=== PATIENT | female | born 1975 | race Caucasian/White ===

== ENCOUNTER → 2017-06-25 13:54 | Outpatient (CLI) | payer MEDICAID, SELFPAY ==
--- NOTE | 2017-06-25 13:59 | MR_ITS ---
MR head/brain wo con Ordering Physician: Fernanda Barillas Patient Age: 41 years: Female HISTORY: ITS.REASON: NEW GUAN PERSISTENT HEADACHE Pain swelling left side of head base neck. Migraine headaches. He blacks spot. Symptoms one month. No trauma. TECHNIQUE: Noncontrast Multiplanar FLAIR, T1, T2 weighted images along with axial diffusion/ADC imaging performed on 1.5 T. Siemens, MRI. . COMPARISON :CT head 08/09/2014 FINDINGS The diffusion images show no acute infarct or ischemia No mass lesion. Normal anatomy. The ventricles, basal cisterns appear satisfactory. Persaud-white matter patterns satisfactory.. FLAIR images show only a small 2 mm high signal focus at the periphery of left basal ganglia which I believe may merely be related to a flow and vessel as it is only seen on axial images but not confirmed on coronal views. . Most likely related to a generous perivascular space and slow flow within tiny venous structure. Not felt to be of significance.. The white matter regions otherwise appear unremarkable. Posterior fossa appears satisfactory. Cranial nerve VII and VIII overall survey grossly unremarkable.... Scant barely evident signal at the left mastoid tip may reflect a small opacified air cell and tiny mastoid effusion. Not of significance.. Negligible. . Normal flow void at dural venous sinuses on this noncontrast study . Scalp and skull intact. Orbits unremarkable. Paranasal sinuses clear. On the sagittal view of the head and cranial cervical junction I would note that there is a mild/ moderate disc protrusion midline and perhaps slightly to the left at C 3/4. This does indent the thecal sac and nearly abuts the cervical cord. The underlying osseous spinal canal is modest in caliber satisfactory at this level and with this disc protrusion it measures measuring just less than 10 mm AP sagittal measurement. Reflecting borderline spinal stenosis.. You may want to consider further evaluation with MRI C-spine particularly if associated neck symptoms with headaches. IMPRESSION: MRI brain within normal limits . No significant appearing findings Minor incidental comments in text..: ... Most notable is a C3/4 Central Disc Protrusion-with borderline spinal stenosis due to this along with the modest volume underlying cervical osseous spinal canal.. .
== END ==
PROVIDERS: Family Provider Family Medicine; PCP Family Medicine; Visit Provider Nurse Practitioner Family
DX: G44.52 New daily persistent headache (NDPH) (principal)
CPT/HCPCS: 70551

== ENCOUNTER → 2017-08-21 09:27 | Outpatient (CLI) | payer MEDICAID, SELFPAY ==
--- NOTE | 2017-08-21 09:31 | US_ITS ---
US abdomen limited History:Right upper quadrant pain with elevated liver enzymes Ordering Physician:Fernanda Barillas Patient Age: 41 years Comparison:None Findings: Pancreas:Unremarkable. No obvious mass or abnormal fluid collection. No ductal dilatation Liver:No focal liver lesions demonstrated. Homogeneous echogenicity. No intrahepatic biliary ductal dilatation evident Right Kidney:Unremarkable. Normal size and echogenicity. No hydronephrosis Gallbladder: Prior cholecystectomy. Common bile duct is within normal limits. IMPRESSION: Prior cholecystectomy otherwise negative right upper quadrant ultrasound
== END ==
PROVIDERS: Family Provider Family Medicine; PCP Family Medicine; Visit Provider Nurse Practitioner Family
DX: R74.8 Abnormal levels of other serum enzymes (principal); R10.11 Right upper quadrant pain
CPT/HCPCS: 76705

== ENCOUNTER → 2018-04-07 14:28 | Outpatient (CLI) | payer MEDICAID, SELFPAY ==
--- NOTE | 2018-04-07 14:40 | XR_ITS ---
XR foot LT min 3V HISTORY: ITS.REASON: LEFT FOOT PAIN ORDERING PHYSICIAN: Jennifer Churchill PATIENT AGE: 42 years COMPARISON: None FINDINGS: No fracture or dislocation. No lytic or blastic change. There is normal mineralization.. The joint spaces are well-preserved. No significant degenerative/arthritic changes. No erosive changes evident. No calcaneal spur.. No radiopaque foreign body IMPRESSION: Negative, no acute finding
== END ==
PROVIDERS: PCP Nurse Practitioner Family; Visit Provider Nurse Practitioner Family
DX: M79.672 Pain in left foot (principal)
CPT/HCPCS: 73630

== ENCOUNTER 2019-10-25 19:37 | Emergency (ER) | payer OTHER, SELFPAY ==
[2019-10-25 19:52] VITALS: BP 136/92; PULSE 94; RESP 19; TEMP 36.8; O2SAT 99; BMI 24.8
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
[2019-10-25 20:17] VITALS: BP 130/88; PULSE 102; RESP 16; TEMP 36.8; O2SAT 99; BMI 25.6
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
[2019-10-25 21:47] VITALS: BP 123/75; PULSE 80; RESP 16; TEMP 36.9
== END 2019-10-25 22:00 | disposition home or self-care (01) ==
LOC: UTC 20:10 → ER 20:15
PROVIDERS: Emergency Provider Family Medicine; PCP Family Medicine
DX: M54.2 Cervicalgia (principal); Y04.2XXA Assault by strike against or bumped into by another person, initial encounter; Y92.019 Unspecified place in single-family (private) house as the place of occurrence of the external cause
CPT/HCPCS: 70490; 72125; 96372; 99282

== ENCOUNTER 2020-09-20 14:13 | Observation (INO) | payer OTHER, SELFPAY ==
[2020-09-20 14:14] VITALS: BP 134/72; PULSE 137; RESP 18; TEMP 38; O2SAT 100; BMI 27.4
--- NOTE | 2020-09-20 14:39 | XR_ITS ---
PROCEDURE: XR CHEST PORTABLE CLINICAL HISTORY: fever, cough, soa COMPARISON: CR XR CHEST 2V from 11/09/2018 CR XR CHEST 2V from 03/21/2019 CR XR CHEST 2V from 06/02/2019 FINDINGS: The cardiomediastinal silhouette and pulmonary vascularity are within normal limits. The lungs are clear without infiltrates, suspicious nodules, or pleural effusions. No acute bony abnormalities. IMPRESSION: No acute findings. Dictated by: Wallace Dejesus MD 09/20/2020 16:02 Wallace Dejesus MD in [place] 09/20/2020 16:02
--- NOTE | 2020-09-20 14:40 | CT_ITS ---
PROCEDURE: CT ABDOMEN PELVIS W CON CLINICAL INDICATION: abdominal pain COMPARISON: CT ABDPELW/O CT ABD PELVIS W/O CONTRAST from 08/18/2016 TECHNIQUE: IV Contrast: 75ML Isovue 370 Oral Contrast None Axial images obtained with sagittal and coronal reformats. All CT scans at the facility use one or more dose reduction, viz: automated exposure control, ma/kV adjustment per patient size (including targeted exams where dose is matched to indication, i.e. head), or iterative reconstruction technique. FINDINGS: LOWER THORAX: No acute finding ABDOMEN & PELVIS: Status post cholecystectomy. The liver, spleen, adrenal glands, pancreas, and kidneys have an unremarkable appearance. No evidence of appendicitis. No renal or ureteral calculi. No hydronephrosis or obvious renal mass. There is a mild amount of retained colonic feces. No evidence of diverticulitis There his been a prior hysterectomy. Multiple small left ovarian cysts are noted 1 of which demonstrates some minimal peripheral contrast enhancement measuring approximately 1 cm. The largest cyst is 2 x 1.4 cm. There is a mild amount of gas within the vaginal region. There is stranding of the fat anterior to the urinary bladder between the urinary bladder and the abdominal wall with suggestion of a small amount of fluid in this region. There is mild haziness around the urinary bladder. These findings are nonspecific but could be seen with cystitis. Degenerative disc disease L4-5. IMPRESSION: Stranding of the fat anterior to the urinary bladder between the bladder and the abdominal wall with mild haziness of the fat around the urinary bladder. Underlying inflammatory changes are considered. Cystitis is a consideration. Moderate amount of retained colonic feces Dictated by: Wallace Dejesus MD 09/20/2020 16:19 Wallace Dejesus MD in [place] 09/20/2020 16:19
--- NOTE | 2020-09-20 14:40 | CA_ITS ---
APPROVED REPORT Right Lower Extremity Venous Study for DVT. Inspector Firearms: Jennifer Gray RVT Indications Lower Extremity Pain: Right Lower Extremity Edema: Right Current Smoker RT GROIN PAIN SINCE YESTERDAY, NKI Risk Factors Current Smoker Vein Imaging CFV (R): compressive, spontaneous, phasic, augmentation FEM (R): compressive, spontaneous, phasic, augmentation POP (R): compressive, spontaneous, phasic, augmentation PTV (R): Compressible GSV (R): Compressible Peroneals (R):Compressible GAS (R): Compressible Findings Study suggests no evidence of DVT or SVT of the right lower extremity. Conclusion Study suggests no evidence of DVT or SVT of the right lower extremity. Critical Notification Physician Notified Date: 09/20/2020 Time: 15:16 Physician Name: Dr Snowden Electronically signed by : Wallace Dejesus MD 09/20/2020 16:54:38
--- NOTE | 2020-09-20 14:42 | HMH.EDGENADL ---
ED Disposition Clinical Impression: Pelvic infection, IV drug abuse Sepsis Qualifiers: Sepsis type: sepsis due to unspecified organism Sepsis acute organ dysfunction status: without acute organ dysfunction Qualified Code(s): A41.9 - Sepsis, unspecified organism Disposition: Admitted As Inpatient Condition on Discharge: Serious Referrals: Provider,Referral, [Referring] - - Critical Care Critical Care Time: No Attestation: On 09/20/20, the high probability of a clinically significant, sudden or life threatening deterioration of the following system(s) required my full and direct attention, intervention and personal management. The time I documented below is in addition to time spent performing reported procedures but includes the following listed in this critical care notation. Medical Decision Making - Danny Inquiry Pt receiving controlled substance: No Vital Signs: 09/20/20 14:14 09/20/20 15:00 09/20/20 18:16 Temperature 100.4 F H Temperature Source Oral Pulse Rate 125 H 78 Pulse Rate [Right Radial] 137 H Respiratory Rate 18 18 Blood Pressure 128/71 110/70 Blood Pressure [Right Arm] 134/72 Blood Pressure Mean 89 Blood Pressure Mean [Right Arm] 92 Blood Pressure Source [Right Arm] Automatic Cuff Blood Pressure Position [Right Arm] Sitting 02 Sat by Pulse Oximetry 100 98 98 Oxygen Delivery Method Room Air Room Air - Lab Data Lab Results 09/20/20 14:38: ESR 99 H 09/20/20 14:38: Sodium 135 L, Potassium 3.2 L, Chloride 101, Carbon Dioxide 22, Anion Gap 15.2 H, BUN 10, Creatinine 0.70, Estimated Creat Clear 112, Estimated GFR 92, Est GFR ( Amer) 111, Glucose 157 H, Calcium 9.1, Total Bilirubin 0.6, AST 23, ALT 21, Alkaline Phosphatase 144 H, Total Creatine Kinase 20 L, CK-MB (CK-2) 0.4, CK-MB (CK-2) Rel Index 2.0, Troponin I < 0.01, C-Reactive Protein 211.4 H, Total Protein 8.4 H, Albumin 4.2, Globulin 4.2 H, Albumin/Globulin Ratio 1.0 L 09/20/20 14:38: Lactate 1.5 09/20/20 14:38: WBC 17.5 H, RBC 4.54, Hgb 13.1, Hct 38.4, MCV 84.6, MCH 28.9, MCHC 34.2, RDW 14.1, Plt Count 350, MPV 7.8, Neut % (Auto) 80.4 H, Lymph % (Auto) 15.4, [place] % (Auto) 3.6, Eos % (Auto) 0.2, Baso % (Auto) 0.3, Neut # (Auto) 14.0 H, Lymph # (Auto) 2.7, [place] # (Auto) 0.6, Eos # (Auto) 0.0, Baso # (Auto) 0.1, Total Counted 100, Neutrophils % (Manual) 70, Band Neutrophils % 2.0, Lymphocytes % (Manual) 25, Monocytes % (Manual) 2, Promyelocytes % 1, Platelet Estimate Normal, RBC Morphology Normal 09/20/20 14:48: SARS-CoV-2 (PCR) Not detected, Influenza A Untype (PCR) Not detected, Influenza Type B (PCR) Not detected 09/20/20 15:40: Urine Color Yellow, Urine Appearance Clear, Urine pH 6.5, Ur Specific [place] <= 1.005, Urine Protein Negative, Urine Glucose (UA) Negative, Urine Ketones Trace, Urine Blood Trace-i, Urine Nitrate Negative, Urine Bilirubin 1+ A, Urine Urobilinogen 0.2, Ur Leukocyte Esterase Negative, Urine RBC 3-5, Urine WBC Occasional, Ur Squamous Epith Cells 5-10, Urine Bacteria Trace 09/20/20 15:40: Urine Opiates Screen Negative, Urine Methadone Screen Negative, Ur Barbituates Screen Negative, Ur Phencyclidine Scrn Negative, Ur Amphetamines Screen Positive H, U Benzodiazepines Scrn Negative, Urine Cocaine Screen Negative, U Marijuana (THC) Screen Negative Result diagrams: 09/20/20 14:38 09/20/20 14:38 Orders (Tests/Meds): ED MEDICATIONS Generic Name Dose Route Start Last Admin Trade Name Freq PRN Reason Stop Dose Admin Levofloxacin/Dextrose 750 mg in 150 mls @ 100 mls/hr 09/20/20 17:30 Levofloxacin 750mg/150ml Premix IV 10/04/20 17:29 Q24H [place] Protocol Metronidazole 500 mg in 100 mls @ 100 mls/hr 09/20/20 17:45 09/20/20 17:35 Flagyl 500mg/100ml Ivpb IV 10/04/20 17:44 100 mls/hr Q8H [place] Administration Protocol Discontinued Medications Generic Name Dose Route Start Last Admin Trade Name Freq PRN Reason Stop Dose Admin Iopamidol 70 ml 09/20/20 15:30 09/20/20
--- NOTE | 2020-09-20 14:43 | CT_ITS ---
PROCEDURE: CT ANGIO CHEST PE PROTOCOL CLINCIAL INDICATION: soa COMPARISON: No exams were available for comparison TECHNIQUE: IV Contrast: 70ML Isovue 370 Axial images obtained with sagittal and coronal reformats. All CT scans at the facility use one or more dose reduction, viz: automated exposure control, ma/kV adjustment per patient size (including targeted exams where dose is matched to indication, i.e. head), or iterative reconstruction technique. FINDINGS: HEART AND MEDIASTINAL STRUCTURES: No evidence of pulmonary embolus aortic aneurysm or aortic dissection. No mediastinal or hilar mass or adenopathy. There is a small hypodensity in the isthmus of the thyroid gland centrally and on the right nonspecific at 1 cm LUNGS AND PLEURAL SPACES: There is evidence of old granulomatous disease with scattered calcified granulomas. No lobar consolidation or collapse. No effusions or infiltrates. BONY STRUCTURES: No acute bony abnormalities apparent. UPPER ABDOMEN: Unremarkable. ADDITIONAL FINDINGS: No other significant abnormalities. IMPRESSION: No acute finding Dictated by: Wallace Dejesus MD 09/20/2020 16:08 Wallace Dejesus MD in [place] 09/20/2020 16:08
--- NOTE | 2020-09-20 14:47 | ECG_ITS ---
APPROVED REPORT Exam: Resting ECG HR:125 bpm ECG Measurements Heart Rate 125 AXES VT 150 P 74 QRSd 76 QRS 66 QT 300 T 25 QTc 433 Conclusion Sinus tachycardia Cannot rule out Anterior infarct, age undetermined Abnormal ECG Electronically signed by : Luis Curtis, 09/20/2020 21:17:09
--- NOTE | 2020-09-20 14:47 | PC.NURSE ---
notified rad of CT orders, spoke with Trudy
--- NOTE | 2020-09-20 14:57 | PC.NURSE ---
CV lab staff at
[2020-09-20 14:59] LABS: Coronavirus 19, PCR Not Detected (NotDetected); Influenza A, PCR Not Detected (NotDetected); Influenza B, PCR Not Detected (NotDetected)
[2020-09-20 15:00] VITALS: BP 128/71; PULSE 125; O2SAT 98
[2020-09-20 15:00] LABS: Chloride 101 mmol/L (98-107)
[2020-09-20 15:01] LABS: Potassium 3.2 mmoL/L (3.5-5.1); Sodium 135 mmol/L (136-145)
[2020-09-20 15:03] LABS: Alanine Aminotransferase 21 U/L (12-78); Alkaline Phosphatase 144 U/L (38-126); Anion Gap 15.2 mEq/L (5-15); Aspartate Amino Transferase 23 U/L (14-36); Bilirubin,Total 0.6 mg/dl (0.2-1.3); Blood Urea Nitrogen 10 mg/dl (7-17); Carbon Dioxide 22 mmol/L (22.0-30.0); Creatine Kinase 20 U/L (30-135); Creatinine Clearance Estimated 112 mL/min (50-200); Estimated Glomerular Filt Rate 92 ml/min (>60); GFR (African American) 111 ML/MIN (>60)
[2020-09-20 15:04] LABS: Albumin Level 4.2 g/dl (3.5-5.0); Calcium 9.1 mg/dl (8.4-10.2); Globulin 4.2 g/dL (1.3-3.2); Glucose 157 mg/dl (74-100); Total Protein,Serum 8.4 g/dl (6.3-8.2)
--- NOTE | 2020-09-20 15:10 | PC.NURSE ---
patient to ct at this time
[2020-09-20 15:13] LABS: Creatine Kinase MB 0.4 ng/ml (0.0-2.03)
[2020-09-20 15:15] LABS: Lactic Acid 1.5 mmol/L (0.7-2.1)
[2020-09-20 15:17] LABS: Erythrocyte Sedimentation Rate 99 mm/hr (0-20)
[2020-09-20 15:36] LABS: Troponin I < 0.01 ng/ml (0.00-0.034)
[2020-09-20 15:50] LABS: Microscopic, Urine URINE MICROSCOPIC (MICROSCOPIC)
--- NOTE | 2020-09-20 15:50 | PC.NURSE ---
Pt to & from bathroom via wheelchair with 1 assist, clean catch urine obtained.
[2020-09-20 15:51] LABS: Basophils # 0.1 K/mm3 (0-0.2); Basophils % 0.3 % (0.1-2.0); Eosinophils % 0.2 % (0.1-12.0); Hematocrit 38.4 % (37.0-47.0); Hemoglobin 13.1 g/dL (12.2-16.2); Lymphocytes # 2.7 K/mm3 (0.7-4.5); Lymphocytes % 15.4 % (10-50); Mean Corpuscular HGB Conc 34.2 g/dL (31.8-35.4); Mean Corpuscular Hemoglobin 28.9 pg (27.0-31.2); Mean Corpuscular Volume 84.6 fl (81-99); Mean Platelet Volume 7.8 fl (7.4-10.4); Monocytes # 0.6 K/mm3 (0.1-1.0); Monocytes % 3.6 % (1.7-9.3); Neutrophils % 80.4 % (37.0-80.0); Platelet Count 350 K/mm3 (142-424); Red Blood Count 4.54 M/mm3 (4.20-5.40); Red Cell Distribution Width 14.1 % (11.5-17.5); White Blood Count 17.5 K/mm3 (4.8-10.8)
[2020-09-20 15:52] LABS: MANUAL DIFFERENTIAL MANUAL DIFFERENTIAL (MANUAL DIFF)
[2020-09-20 15:55] LABS: Appearance,Urine CLEAR (Clear); Blood, Urine TRACE-I (Negative); Color,Urine YELLOW (Yellow); Glucose,Urine (UA) Negative (Negative); Ketones,Urine TRACE (Negative); Leukocyte Esterase,Urine Negative (Negative); Nitrate,Urine Negative (Negative); PH,Urine 6.5 (5.0-8.5); Protein,Urine Negative (Negative); Specific Gravity, Urine <= 1.005 (1.005-1.030); Urobilinogen,Urine 0.2 EU/dl (0.2)
[2020-09-20 15:56] LABS: Bilirubin,Urine 1+ (Negative)
[2020-09-20 15:59] LABS: C-Reactive Protein 211.4 mg/L (0-4)
[2020-09-20 16:02] LABS: WBC,Urine Occasional #/hpf (0-3)
[2020-09-20 16:03] LABS: Bacteria,Urine Trace /lpf
[2020-09-20 16:05] LABS: Amphetamine/Metha Screen,Urine Positive ng/ml (<1000)
[2020-09-20 16:06] LABS: Barbiturates Screen,Urine Negative ng/ml (<200); Benzodiazepines Screen,Urine Negative ng/ml (<200)
[2020-09-20 16:07] LABS: Cannabinoid Screen,Urine Negative ng/ml (<50)
[2020-09-20 16:08] LABS: Cocaine Screen,Urine Negative ng/ml (<300); Methadone Screen,Urine Negative ng/ml (<300)
[2020-09-20 16:09] LABS: Opiate Screen,Urine Negative ng/ml (<300)
[2020-09-20 16:10] LABS: Phencyclidine Screen,Urine Negative ng/ml (<25)
[2020-09-20 16:53] LABS: Lymphocytes % 25 % (10-50); Monocytes % 2 % (2-9); Neutrophils % 70 % (42-76); Promyelocytes % 1 %; Total Cells Counted 100
[2020-09-20 16:54] LABS: Platelet Estimate Normal; RBC Morphology Normal
--- NOTE | 2020-09-20 17:08 | PC.NURSE ---
SUZANNE PEREZ speaking with Dr. Fajardo
--- NOTE | 2020-09-20 17:09 | PC.NURSE ---
Assisted MD with pelvic exam. wound culture collected. Pt tolerated well
--- NOTE | 2020-09-20 17:19 | PC.NURSE ---
cloth desizing range operator chief paging dr. green
--- NOTE | 2020-09-20 17:47 | PC.NURSE ---
2nd page out for dr green
[2020-09-20 18:16] VITALS: BP 110/70; PULSE 78; RESP 18; O2SAT 98
[2020-09-20 18:25] VITALS: BMI 25.7
[2020-09-20 19:00] VITALS: BP 122/71; PULSE 109; RESP 18; TEMP 37.3; O2SAT 97
--- NOTE | 2020-09-20 19:04 | PC.NURSE ---
Report called to floor nurse, Brenda at this time. Brenda aware of Levaquin infusing.
[2020-09-20 19:05] VITALS: BP 115/69; PULSE 105; RESP 18; O2SAT 98
--- NOTE | 2020-09-20 19:36 | PC.NURSE ---
PT ARRIVED TO FLOOR VIA STRETCHER FROM ED W/STAFF AT 192
[2020-09-20 21:04] VITALS: BP 114/69; PULSE 105; RESP 20; TEMP 37.4; O2SAT 100
--- NOTE | 2020-09-20 22:53 | P.CONPHA_ITS ---
[facility] Pharmacy VTE Monitoring - Patient Demographics Admission date: 09/20/20 Report Date: 09/20/20 Time: 22:53 Allergies/Adverse Reactions: Patient Allergies No Known Allergies Allergy (Verified 02/01/19 03:27) Height: 1.57 m Weight: 63.959 kg Patient Problems: Current Active Problems Pelvic infection (Acute) IV drug abuse (Acute) Sepsis (Acute) - VTE Risk Labs: VTE Related Lab Results Hgb 13.1 g/dL (12.2-16.2) 09/20/20 14:38 Hct 38.4 % (37.0-47.0) 09/20/20 14:38 Plt Count 350 K/mm3 (142-424) 09/20/20 14:38 BUN 10 mg/dl (7-17) 09/20/20 14:38 Creatinine 0.70 mg/dl (0.52-1.04) 09/20/20 14:38 Estimated Creat Clear 112 mL/min (50-200) 09/20/20 14:38 Clinical Trial Participant: No - Prophylaxis Types of VTE Prophylaxis: TEDS Knee High
--- NOTE | 2020-09-21 02:51 | PC.NURSE ---
A&OX4. PT TOLERATING RA WELL. UP INDEPENDENTLY IN ROOM. PT HAS C/O CONTINUOUS PAIN IN PELVIC AREA T/O SHIFT. TX PER MAY. ON REASSESSMENT PT RESTING IN BED. VSS WILL CONTINUE TO MONITOR.
[2020-09-21 07:43] LABS: Basophils % 0.3 % (0.1-2.0); Eosinophils # 0.1 K/mm3 (0.0-0.4); Eosinophils % 0.8 % (0.1-12.0); Hematocrit 33.9 % (37.0-47.0); Lymphocytes % 25.6 % (10-50); Mean Corpuscular HGB Conc 34.6 g/dL (31.8-35.4); Mean Corpuscular Hemoglobin 29.7 pg (27.0-31.2); Mean Corpuscular Volume 85.8 fl (81-99); Mean Platelet Volume 7.9 fl (7.4-10.4); Monocytes # 0.8 K/mm3 (0.1-1.0); Monocytes % 6.7 % (1.7-9.3); Neutrophils # 7.7 K/mm3 (1.8-7.8); Neutrophils % 66.5 % (37.0-80.0); Platelet Count 311 K/mm3 (142-424); Red Blood Count 3.94 M/mm3 (4.20-5.40); Red Cell Distribution Width 13.9 % (11.5-17.5); White Blood Count 11.5 K/mm3 (4.8-10.8)
[2020-09-21 07:59] VITALS: BP 116/69; PULSE 101; RESP 18; TEMP 37.1; O2SAT 100
[2020-09-21 08:00] VITALS: PULSE 101; RESP 18; O2SAT 100
[2020-09-21 08:07] LABS: Hemoglobin 11.7 g/dL (12.2-16.2)
--- NOTE | 2020-09-21 08:48 | US_ITS ---
PROCEDURE: US TRANSVAGINAL CLINICAL INDICATION: Pelvic pain Painful urination COMPARISON: CT CT ABDOMEN PELVIS W CON from 09/20/2020 FINDINGS: Status post hysterectomy and right oophorectomy. The left ovary is prominent at 4.6 x 2.3 by 3.6 cm. There are small left ovarian cysts. The largest measures approximately 2 cm. There is blood flow noted within the left ovary. No cul-de-sac fluid or mass apparent. IMPRESSION: Prior hysterectomy and right oophorectomy. Mildly prominent left ovary with small left ovarian cysts the largest measuring 2 cm and appears to represent a simple cyst.. Dictated by: Wallace Dejesus MD 09/21/2020 10:02 Wallace Dejesus MD in [place] 09/21/2020 10:02
--- NOTE | 2020-09-21 08:50 | CT_ITS ---
PROCEDURE: CT THORACIC SPINE W CON CLINICAL HISTORY: Pain, IV Drug user, R/O Discitis COMPARISON: No exams were available for comparison TECHNIQUE: Axial images obtained with sagittal and coronal reformats. All CT scans at the facility use one or more dose reduction, viz: automated exposure control, ma/kV adjustment per patient size (including targeted exams where dose is matched to indication, i.e. head), or iterative reconstruction technique. FINDINGS: There is normal alignment. No acute fracture or dislocation. No lytic or blastic change. No evidence of discitis. No paraspinal mass or abscess. There are mild degenerative changes with small anterior osteophytes. No canal stenosis or foraminal narrowing apparent. Minimal atelectatic or fibrotic change left lower lobe. IMPRESSION: Minimal degenerative changes, no acute finding Dictated by: Wallace Dejesus MD 09/21/2020 10:34 Wallace Dejesus MD in [place] 09/21/2020 10:34
--- NOTE | 2020-09-21 08:50 | CT_ITS ---
PROCEDURE: CT LUMBAR SPINE W CON CLINICAL HISTORY: Pain, IV Drug user, R/O Discitis COMPARISON: CT ABDPELW/O CT ABD PELVIS W/O CONTRAST from 08/18/2016 MR [facility] [place] MRI-L-SPINE W/WO from 02/04/2017 TECHNIQUE: Axial images obtained with sagittal and coronal reformats. All CT scans at the facility use one or more dose reduction, viz: automated exposure control, ma/kV adjustment per patient size (including targeted exams where dose is matched to indication, i.e. head), or iterative reconstruction technique. FINDINGS: Normal alignment. No acute fracture or dislocation. No lytic or blastic change. L1-L2, L2-L3, and L3-L4 have an unremarkable appearance. There is degenerative disc disease at L4-5 with decrease in the disc space and some mild endplate osteosclerosis and small anterior osteophytes. No definite endplate erosion. No abnormal enhancing paraspinal soft tissues or paraspinal abscess. There are endplate hypertrophic changes with moderate to severe left-sided foraminal narrowing. L5-S1: There is mild degenerative disc disease with endplate osteophytes and bulging disc which is slightly eccentric toward the right. Left-sided foraminal and lateral disc osteophyte complex noted which is broad-based. There is moderate left-sided foraminal narrowing and mild right foraminal narrowing. IMPRESSION: 1. No convincing evidence of discitis or paraspinal abscess. 2. Degenerative disc disease L4-5 and L5-S1 with endplate hypertrophic change and bulging discs with bilateral foraminal narrowing. Please see above for detail. Dictated by: Wallace Dejesus MD 09/21/2020 10:21 Wallace Dejesus MD in [place] 09/21/2020 10:21
--- NOTE | 2020-09-21 08:50 | CT_ITS ---
PROCEDURE: CT HIP RT W CON CLINICAL HISTORY: Pain, IV Drug user, R/O septic joint COMPARISON: CT CT ABDOMEN PELVIS W CON from 09/20/2020 TECHNIQUE: Axial images obtained with sagittal and coronal reformats. All CT scans at the facility use one or more dose reduction, viz: automated exposure control, ma/kV adjustment per patient size (including targeted exams where dose is matched to indication, i.e. head), or iterative reconstruction technique. FINDINGS: No bony destructive process. No significant hip joint effusion or abscess apparent. Mild osteoarthritic changes are present of the right hip. There remains thickening of the fat anterior to the urinary bladder with mild haziness of the soft tissues at this region. IMPRESSION: 1. Minimal osteoarthritic change of the right hip. No bony destructive process or abscess. 2. Haziness of the fat anterior to the urinary bladder suspicious for underlying inflammatory process. Dictated by: Wallace Dejesus MD 09/21/2020 10:12 Wallace Dejesus MD in [place] 09/21/2020 10:12
--- NOTE | 2020-09-21 08:56 | CA_ITS ---
APPROVED REPORT EXAM: Comprehensive 2D, Doppler, and color-flow Echocardiogram Boarding House Manager: Fanny Arzola RDCS Ht: 5 ft 2 in Wt: 141lbs BSA: 1.65 BP: 110/70 mmHg Indications: IV drug abuse, pelvic infection, smoker, cellulitis 2D Dimensions LVOT 1.92 cm (M/F) 1.5-2.5 LVEF (Abbott's) 56.10 % F: 54 - 74 LV Volume 81.40 mL F: 46 - 106 LV Volume Index 49.031472 mL/m2 F: 29 - 61 LA Volume 23.00 mL LA Volume Index 14.310634 mL/m2 (M/F) 16-34 M-Mode Dimensions RVDd 1.47 cm (0.9-2.6) LA Diam 2.86 cm (1.9-4.0) LVDd 4.47 cm (3.5-5.7) Ao Diam 2.33 cm (2.0-3.7) LVDs 3.50 cm (3.5-5.7) IVSd 0.84 cm (0.6-1.1) PWd 0.97 cm (0.6-1.1) EF (Teich) 44.10% FS 21.70% EDV (Teich) 91.00 mL ESV (Teich) 50.90 mL LV Diastology E Decel Time 197.00 (160-240 msec) E/A Ratio 0.9 MED E' 12.30 (< 7 cm/sec) E'/MED E' Ratio 8.86 (>14) LAT E' 11.70 (<10 cm/sec) E/LAT E' Ratio 9.32 (>14) Mitral Valve MV E Max Chucho. 109.00 (40-130 cm/s) MV A Velocity 116.00 (40-130 cm/s) E/A Ratio 0.94 MV Decel. Time 197.00 (160-240 ms) MV PHT 58.00 ms Tricuspid Valve TR P. Velocity 214.00 cm/s RAP Estimate 10.00 mmHg RVSP 28.30 mmHg Left Ventricle Left atrium is normal size, left ventricle is normal size, there is no concentric left ventricular hypertrophy, visually estimated ejection fraction 55% with no regional wall motion abnormality, diastolic parameters are within normal range. Right Ventricle Right atrium and right ventricle are normal size and contractility. Aortic Valve Aortic valve is grossly normal, there is no aortic stenosis or aortic insufficiency. Mitral Valve Mitral valve grossly normal, there is trace mitral regurgitation. Tricuspid Valve Tricuspid valve grossly normal, there is trace tricuspid regurgitation, tricuspid regurgitation jet velocity is inadequate for calculation of the right ventricular systolic pressure. Pulmonic Valve Pulmonic valve is poorly visualized. Great Vessels Aortic root is normal size. Pericardium No significant pericardial effusion noted. Conclusion 1. Normal left ventricular size, preserved left ventricular systolic function, visually estimated ejection fraction 55% with no regional wall motion abnormality, diastolic parameters are within normal range. 2. Trace mitral and tricuspid regurgitation. 3. No significant pericardial effusion noted. Electronically signed by : Inocencio Marina, 09/22/2020 16:27:17
--- NOTE | 2020-09-21 09:23 | HMH.HP ---
*Admission Date: 09/20/20 *Chief complaint: Pelvic pain *History of present illness: 44-year-old female patient presented to the emergency department with complaints of pain in her right inguinal, pelvic, right medial thigh area, and radiating down her right leg. Pain increases with weightbearing, she does report lower lumbar back pain at times and denies any injury She also reports a chronic cough, increasing slightly over the past week with mild shortness of breath. She denies nausea/vomiting/diarrhea or dysuria/urgency/frequency She did have an irregular pelvic exam and [employer] referral placed Lab work in ED revealed elevated white count 17.5 Electrolytes nonactionable CRP elevated at 211 09/20/20 Abdomen, Pelvis CT: FINDINGS: LOWER THORAX: No acute finding ABDOMEN & PELVIS: Status post cholecystectomy. The liver, spleen, adrenal glands, pancreas, and kidneys have an unremarkable appearance. No evidence of appendicitis. No renal or ureteral calculi. No hydronephrosis or obvious renal mass. There is a mild amount of retained colonic feces. No evidence of diverticulitis There his been a prior hysterectomy. Multiple small left ovarian cysts are noted 1 of which demonstrates some minimal peripheral contrast enhancement measuring approximately 1 cm. The largest cyst is 2 x 1.4 cm. There is a mild amount of gas within the vaginal region. There is stranding of the fat anterior to the urinary bladder between the urinary bladder and the abdominal wall with suggestion of a small amount of fluid in this region. There is mild haziness around the urinary bladder. These findings are nonspecific but could be seen with cystitis. Degenerative disc disease L4-5. IMPRESSION: Stranding of the fat anterior to the urinary bladder between the bladder and the abdominal wall with mild haziness of the fat around the urinary bladder. Underlying inflammatory changes are considered. Cystitis is a consideration. Moderate amount of retained colonic feces Dictated by: Wallace Dejesus MD 09/20/2020 16:19 Wallace Dejesus MD in [place] 09/20/2020 16:19 09/20/20 US Lower Extremity As per [facility] procedure, doppler report received from point of care technician: Negative for DVT [facility] History I have reviewed the patient's past medical history: Yes Medical History: Reports:: Anxiety, Cancer, Depression, Urinary Tract Infection Denies:: Diabetes Mellitus Type 1, Diabetes Mellitus Type 2 *Have you ever received a pneumonia vaccine?: No *Have you received a flu vaccine this season?: No Other Surgeries: Yes: , Hysterectomy-Partial, Tubal Ligation, Other Amputation: No Fractures: No - *Social History Smoking Status: Current every day smoker Tobacco Type: cigarettes # Packs/Day (cigarettes): 1 Alcohol Intake: never Substance Use Type: other Last Used Substance: days (ago) *Occupational Status:: unemployed Housing: house *Travel in the last 8 weeks: None - Psychiatric History Pschychiatric History:: Reports:: Anxiety, Depression Family Hx:: No significant family history Review of Systems - Review of Systems Review of systems:: pertinent systems reviewed and negative unless documented below - Constitutional Denies anorexia - Eyes Denies change in vision, Denies floaters - ENT Denies abnormal hearing, Denies dizziness - *Cardiovascular Reports leg pain with activity, Reports shortness of breath, Reports leg swelling, Denies chest pain - *Respiratory Reports shortness of breath, Denies chest congestion, Denies wheezing - *Gastrointestinal Denies change in stools, Denies vomiting - *Genitourinary Reports pelvic pain, Denies painful urination, Denies difficulty starting urination - *Musculoskeletal Reports abnormal walking, Reports limited joint movement, Reports radiating pain into limb, Denies body aches - Integumentary/Breasts Denies hair loss, Denies change in skin color - *Neurologic Denies numbness,
--- NOTE | 2020-09-21 09:31 | HMH.PHACONS ---
- Pharmacy Consult Date: 09/21/20 Time: 09:31 Referring provider: DR. GARCIA Reason for Consult:: VANCOMYCIN DOSING Allergies and ADEs:: Allergies Allergy/AdvReac Type Severity Reaction Status Date / Time No Known Allergies Allergy Verified 02/01/19 03:27 Home Medications:: Home Medications Medication Instructions Recorded Confirmed Type No Known Home Medications 09/20/20 09/20/20 History Height: 1.57 m Weight: 63.959 kg Laboratory Results:: Laboratory Results - last 24 hr 09/20/20 14:38: ESR 99 H 09/20/20 14:38: Sodium 135 L, Potassium 3.2 L, Chloride 101, Carbon Dioxide 22, Anion Gap 15.2 H, BUN 10, Creatinine 0.70, Estimated Creat Clear 112, Estimated GFR 92, Est GFR ( Amer) 111, Glucose 157 H, Calcium 9.1, Total Bilirubin 0.6, AST 23, ALT 21, Alkaline Phosphatase 144 H, Total Creatine Kinase 20 L, CK-MB (CK-2) 0.4, CK-MB (CK-2) Rel Index 2.0, Troponin I < 0.01, C-Reactive Protein 211.4 H, Total Protein 8.4 H, Albumin 4.2, Globulin 4.2 H, Albumin/Globulin Ratio 1.0 L 09/20/20 14:38: Lactate 1.5 09/20/20 14:38: WBC 17.5 H, RBC 4.54, Hgb 13.1, Hct 38.4, MCV 84.6, MCH 28.9, MCHC 34.2, RDW 14.1, Plt Count 350, MPV 7.8, Neut % (Auto) 80.4 H, Lymph % (Auto) 15.4, Riley % (Auto) 3.6, Eos % (Auto) 0.2, Baso % (Auto) 0.3, Neut # (Auto) 14.0 H, Lymph # (Auto) 2.7, Riley # (Auto) 0.6, Eos # (Auto) 0.0, Baso # (Auto) 0.1, Total Counted 100, Neutrophils % (Manual) 70, Band Neutrophils % 2.0, Lymphocytes % (Manual) 25, Monocytes % (Manual) 2, Promyelocytes % 1, Platelet Estimate Normal, RBC Morphology Normal 09/20/20 14:48: SARS-CoV-2 (PCR) Not detected, Influenza A Untype (PCR) Not detected, Influenza Type B (PCR) Not detected 09/20/20 15:40: Urine Color Yellow, Urine Appearance Clear, Urine pH 6.5, Ur Specific [place] <= 1.005, Urine Protein Negative, Urine Glucose (UA) Negative, Urine Ketones Trace, Urine Blood Trace-i, Urine Nitrate Negative, Urine Bilirubin 1+ A, Urine Urobilinogen 0.2, Ur Leukocyte Esterase Negative, Urine RBC 3-5, Urine WBC Occasional, Ur Squamous Epith Cells 5-10, Urine Bacteria Trace 09/20/20 15:40: Urine Opiates Screen Negative, Urine Methadone Screen Negative, Ur Barbituates Screen Negative, Ur Phencyclidine Scrn Negative, Ur Amphetamines Screen Positive H, U Benzodiazepines Scrn Negative, Urine Cocaine Screen Negative, U Marijuana (THC) Screen Negative 09/21/20 07:10: WBC 11.5 H D, RBC 3.94 L, Hgb 11.7 L D, Hct 33.9 L, MCV 85.8, MCH 29.7, MCHC 34.6, RDW 13.9, Plt Count 311, MPV 7.9, Neut % (Auto) 66.5, Lymph % (Auto) 25.6, Riley % (Auto) 6.7, Eos % (Auto) 0.8, Baso % (Auto) 0.3, Neut # (Auto) 7.7, Lymph # (Auto) 3.0, Riley # (Auto) 0.8, Eos # (Auto) 0.1, Baso # (Auto) 0.0 Medical History: Reports:: Anxiety, Cancer, Depression, Urinary Tract Infection Denies:: Diabetes Mellitus Type 1, Diabetes Mellitus Type 2 Assessment and Plan - Assessment and plan all Dx Assessment and Plan for all problems:: Pharmacokinetic dosing service Objective: Patient: Floor: Age: 44 yo Serum creatinine: 0.70 mg/dL Height: 61.8 Inches Weight (kg): 64 Assessment: IBW (kg): 49.64 Dosing wt(kg): 64 Estimated Creatinine clearance (ml/min): 82.0 CRCL method: Cockcroft and Gault using ibw(default). Drug selected: Vancomycin Loading dose (mg): 0 Vd (liters): 44.8 (factor used: 0.7 L/kg) Dylan (hr-1): 0.072 Half life (hrs): 9.63 Recommended dose: 1000 mg Interval: 12 hrs Infusion time (hrs): 2.0 Predicted peak (mcg/mL): 35.9 Predicted trough (mcg/mL): 17.47 Total body weight is being used for vancomycin dosing. Recommendations: Give Vancomycin 1000 mg q 12 hrs with an expected Cpeak of 35.9 mcg/ml and an expected Ctrough of 17.47 mcg/ml Thank you for the consult, will continue to follow. -JENNIE PINTO, MICHEALD
[2020-09-21 12:33] LABS: Procalcitonin 4.98 ng/mL (0.0-2.0)
--- NOTE | 2020-09-21 14:12 | HMH.GYNCON ---
[employer] - CN: HPI - Data of Consult Consult date: 09/21/20 Requesting Physician: Broderick Silva MD Primary Care Provider: Opal García APRN - Consult Narrative Reason for consult: pelvic pain History of present illness: Ms. Grimaldo is a 44 year old female She has a 2-day history of lower abdominal pain. She has increased vaginal discharge. She is a drug abuser and has used IV drugs a couple of weeks ago she has been taking fentanyl. On this and she is positive for amphetamines. She states that the amphetamines are likely mixed in with the fentanyl she has been taking. She is currently homeless she says. She was seen in the ER last night and had a fever as well as an elevated white count. When the physician examined her there was pus or frothy liquid coming from the top of the vagina. He could not see the fistula. 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 CT scan shows some infiltration in the space of Retzius anterior to the bladder. She denies any vaginal bleeding or use of vaginal toys. CC: Broderick Silva MD Review of Systems - Review of Systems Review of systems:: pertinent systems reviewed and negative unless documented below - *Neurologic Reports abnormal walking, Denies abnormal hearing, Denies behavioral changes, Denies dizziness, Denies numbness, Denies weakness [facility] History I have reviewed the patient's past medical history: Yes Medical History: Reports:: Anxiety, Cancer, Depression, Urinary Tract Infection Denies:: Diabetes Mellitus Type 1, Diabetes Mellitus Type 2 *Have you ever received a pneumonia vaccine?: No *Have you received a flu vaccine this season?: No Other Surgeries: Yes: , Hysterectomy-Partial, Tubal Ligation, Other Amputation: No Fractures: No - *Social History Smoking Status: Current every day smoker Tobacco Type: cigarettes # Packs/Day (cigarettes): 1 Alcohol Intake: never Substance Use Type: other Last Used Substance: days (ago) *Occupational Status:: unemployed Housing: house *Travel in the last 8 weeks: None - Psychiatric History Pschychiatric History:: Reports:: Anxiety, Depression Family Hx:: No significant family history Meds Home Medications Medication Instructions Recorded Confirmed Type No Known Home Medications 09/20/20 09/20/20 History Allergies Allergy/AdvReac Type Severity Reaction Status Date / Time No Known Allergies Allergy Verified 02/01/19 03:27 [employer] - Exam Vital signs: Temp Pulse Resp BP Pulse Ox 98.8 F 101 H 18 116/69 100 09/21/20 07:59 09/21/20 08:00 09/21/20 08:00 09/21/20 07:59 09/21/20 08:00 - Constitutional no acute distress - Routine HEENT Exam Head: Present: normocephalic Eye: Present: EOMI, PERRL ENT: Present: mucous membranes moist - Routine Neck Exam Present: supple, full ROM - Routine Respiratory Exam Absent: accessory muscle use (good air entry bilaterally), wheezes, crackles - Routine Cardiovascular Exam Present: RRR. Absent: murmur - Routine Abdominal Exam Present: soft. Absent: tenderness, distended, rebound, guarding - Routine Rectal Exam Patient deferred: visual exam, digital exam - Routine Exam Patient deferred: external exam, groin exam, perineal exam - Routine Extremities Exam Present: full ROM. Absent: cyanosis, edema - Routine Skin Exam Present: intact, dry. Absent: cyanosis - Routine Neurological Exam Present: alert, oriented X3 - Routine Psychiatric Exam Present: normal affect [employer] - Results - Labs CBC & Chem 7: 09/21/20 07:10 09/20/20 14:38 Labs: Short CBC 09/20/20 09/21/20 Range/Units 14:38 07:10 WBC 17.5 H 11.5 H D (4.8-10.8) K/mm3 Hgb 13.1 11.7 L D (12.2-16.2) g/dL Hct 38.4 33.9 L (37.0-47.0) % Plt Count 350 311 (142-424) K/mm3 [facility] 09/20/20 14:38 Sodium 135 L Potassium 3.2 L Chloride 101 Carbon Dioxide 22 BUN 10 Creatinine 0.70 Glucose
[2020-09-21 15:03] VITALS: BP 144/97; PULSE 108; RESP 18; TEMP 36.9; O2SAT 98
--- NOTE | 2020-09-21 16:38 | PC.NURSE ---
Pt has been pleasant and cooperative this shift. A&O X4. Pt has had frequent complaints of pelvic/abdominal pain and has been medicated with Morphine per MAR with favorable results. Pt is on room air with sats. >90%. Lungs CTA. No edema noted. Skin is C/D/I. Abdomen is flat, soft, and tender. No N/V/D. No BM thus far this shift. Pt ambulates independently to/from the bathroom and throughout the room. Pt sat up in the recliner for several hours today. 20 G peripheral IV in the LT AC is patent and infusing NS @ 50 ML/HR. VSS. Call light within reach. Will continue to monitor.
[2020-09-21 20:00] VITALS: BP 128/69; PULSE 107; RESP 17; TEMP 36.7; O2SAT 100
--- NOTE | 2020-09-22 03:25 | PC.NURSE ---
A&OX4. TOLERATING RA WELL. PT HAS C/O CONTINUOUS PELVIC PAIN T/O SHIFT. TX PER MAY. ON REASSESSMENT, PT STATES PAIN IS RELIEVED FOR SOME TIME AFTER ADMINISTRATION. UP INDEPENDENTLY IN ROOM. PT STATES SOME BURNING ON URINATION. SLEEPING INTERMITTENTLY. VSS WILL CONTINUE TO MONITOR.
[2020-09-22 04:00] VITALS: BP 134/74; PULSE 99; RESP 17; TEMP 36.7; O2SAT 100
[2020-09-22 05:44] VITALS: BMI 25.4
[2020-09-22 07:39] LABS: Basophils # 0.1 K/mm3 (0-0.2); Basophils % 0.5 % (0.1-2.0); Eosinophils # 0.2 K/mm3 (0.0-0.4); Eosinophils % 1.7 % (0.1-12.0); Hematocrit 35.6 % (37.0-47.0); Hemoglobin 12.5 g/dL (12.2-16.2); Lymphocytes # 3.4 K/mm3 (0.7-4.5); Lymphocytes % 24.6 % (10-50); Mean Corpuscular Hemoglobin 29.8 pg (27.0-31.2); Mean Corpuscular Volume 85.2 fl (81-99); Mean Platelet Volume 7.8 fl (7.4-10.4); Monocytes # 0.6 K/mm3 (0.1-1.0); Monocytes % 4.6 % (1.7-9.3); Neutrophils # 9.5 K/mm3 (1.8-7.8); Neutrophils % 68.6 % (37.0-80.0); Platelet Count 372 K/mm3 (142-424); Red Blood Count 4.18 M/mm3 (4.20-5.40); White Blood Count 13.9 K/mm3 (4.8-10.8)
[2020-09-22 07:57] LABS: Chloride 111 mmol/L (98-107); Potassium 4.6 mmoL/L (3.5-5.1)
[2020-09-22 07:59] VITALS: BP 124/74; PULSE 105; RESP 19; TEMP 37; O2SAT 100
[2020-09-22 08:00] VITALS: PULSE 105; RESP 19; O2SAT 100
[2020-09-22 08:00] LABS: Blood Urea Nitrogen 3 mg/dl (7-17); Carbon Dioxide 16 mmol/L (22.0-30.0); Creatinine Clearance Estimated 182 mL/min (50-200); Estimated Glomerular Filt Rate 175 ml/min (>60); GFR (African American) 212 ML/MIN (>60)
[2020-09-22 08:01] LABS: Calcium 9.4 mg/dl (8.4-10.2); Glucose 138 mg/dl (74-100)
[2020-09-22 08:02] LABS: Anion Gap 31.6 mEq/L (5-15); Sodium 154 mmol/L (136-145)
--- NOTE | 2020-09-22 09:03 | HMH.ACPN2 ---
Internal Medicine - PN: Subj *Date: 09/22/20 *Time: 09:03 Interval history: I saw her in my office today. We brought her down wheelchair. On examination there was really no pus or abnormal looking discharge in the vagina. She had a creamy white discharge that looked completely normal. I did swabs for chlamydia and gonorrhea as well as a normal vaginal mary swab. Yesterday when I saw her she said she was having copious discharge from the vagina. At this point time there does not seem to be any. Exam Vital signs and Labs for Last 24 Hours: Temp Pulse Resp BP Pulse Ox 98.6 F 105 H 19 124/74 100 09/22/20 07:59 09/22/20 07:59 09/22/20 07:59 09/22/20 07:59 09/22/20 07:59 Laboratory Results - last 24 hr 09/21/20 11:48: Procalcitonin 4.98 H 09/22/20 07:27: WBC 13.9 H, RBC 4.18 L, Hgb 12.5, Hct 35.6 L, MCV 85.2, MCH 29.8, MCHC 35.0, RDW 14.0, Plt Count 372, MPV 7.8, Neut % (Auto) 68.6, Lymph % (Auto) 24.6, Baldwin % (Auto) 4.6, Eos % (Auto) 1.7, Baso % (Auto) 0.5, Neut # (Auto) 9.5 H, Lymph # (Auto) 3.4, Baldwin # (Auto) 0.6, Eos # (Auto) 0.2, Baso # (Auto) 0.1 09/22/20 07:27: Sodium 154 H*, Potassium 4.6 D, Chloride 111 H, Carbon Dioxide 16 L D, Anion Gap 31.6 H, BUN 3 L D, Creatinine 0.40 L D, Estimated Creat Clear 182, Estimated GFR 175, Est GFR ( Amer) 212 D, Glucose 138 H, Calcium 9.4 I & O for Last 24 hours: Intake & Output 09/19/20 09/20/20 09/21/20 09/22/20 11:59 11:59 11:59 11:59 Intake Total 840 / 840 2925 / 2925 Balance 840 / 840 2925 / 2925 Weight 141 lb 0.1 oz 138 lb 6 oz Microbiology Reports for the Last 24 Hours: Microbiology 09/20/20 17:04 Vaginal Gram Stain - Final 09/20/20 17:04 Vaginal Wound Culture - Preliminary Gram Negative Rods - Constitutional no acute distress - *Routine HEENT Exam Head: Present: normocephalic Eye: Present: EOMI, PERRL ENT: Present: mucous membranes moist - *Routine Abdominal Exam Present: soft, normoactive bowel sounds. Absent: tenderness Comments: She continues to be tender in the suprapubic area. - *Routine Exam External: Present: normal urethra appearance Comments: The vagina was normal in appearance. It was well supported. There was no evidence of infection. She had a normal creamy white discharge. She does have a skin tag on anus that looks somewhat irritated. I suspect it is an old hemorrhoid that continues to be irritated. No evidence of a fistula or any drainage from the vagina at all. I was able to get a good look at the vaginal vault and there was no apparent fistula. Assessment and Plan (1) Substance abuse Status: Acute Category: Medical Code(s): F19.10 - Other psychoactive substance abuse, uncomplicated (2) Pelvic infection Status: Acute Category: Medical (3) IV drug abuse Status: Acute Category: Social Hx Code(s): F19.10 - Other psychoactive substance abuse, uncomplicated (4) Discharging abscess of vagina Status: Acute Category: Medical Code(s): N76.0 - Acute vaginitis - Assessment and plan all Dx Assessment and Plan for all problems:: Today I examined her in my office and there was no evidence of any drainage in the vagina. She has a normal creamy white discharge. We repeated her swabs for chlamydia and gonorrhea as well as a vaginal swab. She continues to be somewhat tender on the suprapubic area consistent with previous abscess or induration. I told her we would go ahead and start Toradol oral tablets every 6 hours while she is hospitalized here. Her right blood count was slightly elevated yesterday. She continues to be afebrile. I suspect she is improving with respect to her infection and I would just keep her on the antibiotics for another few days. She may be able to go home with oral antibiotics. We also discussed getting into a Suboxone clinic as soon as she is discharged. She says that her boyfriend went to the clinic yesterda
--- NOTE | 2020-09-22 10:06 | HMH.DCSUM ---
General - General Admission date:: 09/20/20 Discharge date: 09/22/20 HPI HPI: 44-year-old female patient presented to the emergency department with complaints of pain in her right inguinal, pelvic, right medial thigh area, and radiating down her right leg. Pain increases with weightbearing, she does report lower lumbar back pain at times and denies any injury She also reports a chronic cough, increasing slightly over the past week with mild shortness of breath. 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 The liver, spleen, adrenal glands, pancreas, and kidneys have an unremarkable appearance. No evidence of appendicitis. No renal or ureteral calculi. No hydronephrosis or obvious renal mass. There is a mild amount of retained colonic feces. No evidence of diverticulitis There his been a prior hysterectomy. Multiple small left ovarian cysts are noted 1 of which demonstrates some minimal peripheral contrast enhancement measuring approximately 1 cm. The largest cyst is 2 x 1.4 cm. There is a mild amount of gas within the vaginal region. There is stranding of the fat anterior to the urinary bladder between the urinary bladder and the abdominal wall with suggestion of a small amount of fluid in this region. There is mild haziness around the urinary bladder. These findings are nonspecific but could be seen with cystitis. Degenerative disc disease L4-5. IMPRESSION: Stranding of the fat anterior to the urinary bladder between the bladder and the abdominal wall with mild haziness of the fat around the urinary bladder. Underlying inflammatory changes are considered. Cystitis is a consideration. Moderate amount of retained colonic feces Dictated by: Wallace Dejesus MD 09/20/2020 16:19 Wallace Dejesus MD in OV 09/20/2020 16:19 09/20/20 US Lower Extremity As per [facility] procedure, doppler report received from sow farm technician: Negative for DVT Hospital Course Hospital Course: 44-year-old female patient presented to the emergency department with complaints of pain in her right inguinal, pelvic, right medial thigh area, and radiating down her right leg. Pain increases with weightbearing, she does report lower lumbar back pain at times and denies any injury She also reports a chronic cough, increasing slightly over the past week with mild shortness of breath. 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 The liver, spleen, adrenal glands, pancreas, and kidneys have an unremarkable appearance. No evidence of appendicitis. No renal or ureteral calculi. No hydronephrosis or obvious renal mass. There is a mild amount of retained colonic feces. No evidence of diverticulitis There his been a prior hysterectomy. Multiple small left ovarian cysts are noted 1 of which demonstrates some minimal peripheral contrast enhancement measuring approximately 1 cm. The largest cyst is 2 x 1.4 cm. There is a mild amount of gas within the vaginal region. There is stranding of the fat anterior to the urinary bladder between the urinary bladder and the abdominal wall with suggestion of a small amount of fluid in this region. There is mild haziness around the urinary bladder. These findings are nonspecific but could be seen with cystitis. Degenerative disc disease L4-5. IMPRESSION: Stranding
--- NOTE | 2020-09-22 10:18 | SW/DCPLANNER ---
Addendum entered by Deborah Bradshaw 09/22/20 11:37: Eve with [employer] has confirmed that DME will be delivered to patients room today. Original Note: I spoke with this patient this morning regarding discharge plans. Patient stated that her plan is to return home with family at this time. Patient has stated that she will need a rolling walker at time of discharge. Patient prefers to use [facility]. Patient information/order for rolling walker will be faxed to [facility]. Patient will discharge later today.
--- NOTE | 2020-09-22 10:26 | PC.NURSE ---
Pt will need a rolling walker rather than a cane, due to gait and mobility issues.
== END 2020-09-22 13:30 | disposition home or self-care (01) ==
LOC: ER 18:06 → 2ND 19:30
PROVIDERS: Nurse Practitioner Family; Admitting Provider Emergency Medicine; Emergency Provider Emergency Medicine; PCP Nurse Practitioner Family; Visit Provider Emergency Medicine
DX: N76.0 Acute vaginitis (principal); F17.210 Nicotine dependence, cigarettes, uncomplicated; M79.604 Pain in right leg; F15.10 Other stimulant abuse, uncomplicated; Z59.0 Homelessness; M54.5 Low back pain
CPT/HCPCS: 36415; 71045; 71275; 72129; 72132; 73701; 74177; 76830; 80048; 80053; 80305; 81001; 82550; 82553; 83605; 84145; 84484; 85007; 85025; 85651; 86140; 87040; 87070; 87077; 87186; 87205; 93005; 93306; 93971; 96365; 96366; 99291; G0378; J1956; J2405; J3370; Q9967; U0003

== ENCOUNTER 2021-06-18 13:17 | Emergency (ER) | payer OTHER, SELFPAY ==
[2021-06-18] VITALS (9 sets, daily range): BP systolic 85–117; BP diastolic 65–83; PULSE 74–109; RESP 16–18; TEMP 36.6–36.8; O2SAT 97–98; BMI 27.4
[2021-06-18 13:58] LABS: Basophils # 0.1 K/mm3 (0-0.2); Basophils % 0.9 % (0.1-2.0); Eosinophils # 0.2 K/mm3 (0.0-0.4); Eosinophils % 1.3 % (0.1-12.0); Hematocrit 37.3 % (37.0-47.0); Hemoglobin 12.6 g/dL (12.2-16.2); Lymphocytes # 3.1 K/mm3 (0.7-4.5); Lymphocytes % 21.9 % (10-50); Mean Corpuscular HGB Conc 33.7 g/dL (31.8-35.4); Mean Platelet Volume 7.7 fl (7.4-10.4); Monocytes # 0.5 K/mm3 (0.1-1.0); Monocytes % 3.8 % (1.7-9.3); Neutrophils # 10.2 K/mm3 (1.8-7.8); Neutrophils % 72.1 % (37.0-80.0); Platelet Count 498 K/mm3 (142-424); Red Blood Count 4.19 M/mm3 (4.20-5.40); Red Cell Distribution Width 14.7 % (11.5-17.5); White Blood Count 14.1 K/mm3 (4.8-10.8)
[2021-06-18 14:05] LABS: Microscopic, Urine URINE MICROSCOPIC (MICROSCOPIC)
--- NOTE | 2021-06-18 14:09 | HMH.EDGENADL ---
ED Disposition Clinical Impression: Discitis of lumbosacral region, Acute osteomyelitis of lumbar spine Disposition: Xfer Short-Term Hosp Condition on Discharge: Serious Additional Instructions: Go to [facility] emergency department now. Referrals: Cornelia Oneill MD [Primary Care Provider] - Forms: Transfer Record - ED - Critical Care Critical Care Time: No Attestation: On 06/18/21, the high probability of a clinically significant, sudden or life threatening deterioration of the following system(s) required my full and direct attention, intervention and personal management. The time I documented below is in addition to time spent performing reported procedures but includes the following listed in this critical care notation. Medical Decision Making - Danny Inquiry Pt receiving controlled substance: Yes Danny was queried for this patient: Yes Risks and benefits of using a controlled substance: were not discussed with pt by me Vital Signs: 06/18/21 13:35 06/18/21 13:43 06/18/21 15:01 Temperature 97.9 F Temperature Source Oral Pulse Rate 106 H 100 H Pulse Rate [Right Radial] 109 H Respiratory Rate 18 16 Blood Pressure 107/83 L 102/71 L Blood Pressure [Right Arm] 107/83 L Blood Pressure Mean 88 79 Blood Pressure Mean [Right Arm] 91 02 Sat by Pulse Oximetry 98 97 06/18/21 15:32 06/18/21 15:36 06/18/21 15:41 Temperature Temperature Source Pulse Rate 95 H 77 94 H Pulse Rate [Right Radial] Respiratory Rate Blood Pressure 85/65 L 87/65 L 106/68 L Blood Pressure [Right Arm] Blood Pressure Mean 69 69 75 Blood Pressure Mean [Right Arm] 02 Sat by Pulse Oximetry 06/18/21 16:01 06/18/21 16:30 06/18/21 17:50 Temperature 98.3 F Temperature Source Pulse Rate 94 H 74 93 H Pulse Rate [Right Radial] Respiratory Rate 18 Blood Pressure 104/71 L 117/72 Blood Pressure [Right Arm] Blood Pressure Mean 83 Blood Pressure Mean [Right Arm] 02 Sat by Pulse Oximetry 97 - Lab Data Lab Results 06/18/21 13:39: WBC 14.1 H, RBC 4.19 L, Hgb 12.6, Hct 37.3, MCV 89.0, MCH 30.0, MCHC 33.7, RDW 14.7, Plt Count 498 H, MPV 7.7, Neut % (Auto) 72.1, Lymph % (Auto) 21.9, [place] % (Auto) 3.8, Eos % (Auto) 1.3, Baso % (Auto) 0.9, Neut # (Auto) 10.2 H, Lymph # (Auto) 3.1, [place] # (Auto) 0.5, Eos # (Auto) 0.2, Baso # (Auto) 0.1 06/18/21 13:39: Sodium 136, Potassium 3.7, Chloride 103, Carbon Dioxide 23, Anion Gap 13.7, BUN 6 L, Creatinine 0.70, Estimated Creat Clear 111, Estimated GFR 91, Est GFR ( Amer) 111, Glucose 145 H, Calcium 9.1, Total Bilirubin 0.4, AST 27, ALT 29, Alkaline Phosphatase 147 H, Total Protein 8.3 H, Albumin 4.0, Globulin 4.3 H, Albumin/Globulin Ratio 0.9 L 06/18/21 13:39: Lipase 18 L 06/18/21 13:39: ESR 125 H 06/18/21 13:39: C-Reactive Protein 79.7 H 06/18/21 13:39: Procalcitonin 0.130 06/18/21 13:48: Urine Color Yellow, Urine Appearance Clear, Urine pH 6.0, Ur Specific [place] <= 1.005, Urine Protein Negative, Urine Glucose (UA) Negative, Urine Ketones Negative, Urine Blood Negative, Urine Nitrate Negative, Urine Bilirubin Negative, Urine Urobilinogen 0.2, Ur Leukocyte Esterase Negative, Urine RBC None, Urine WBC None, Ur Squamous Epith Cells 5-10, Urine Bacteria None 06/18/21 13:48: Urine Opiates Screen Negative, Urine Methadone Screen Negative, Ur Barbituates Screen Negative, Ur Phencyclidine Scrn Negative, Ur Amphetamines Screen Positive H, U Benzodiazepines Scrn Negative, Urine Cocaine Screen Negative, U Marijuana (THC) Screen Negative 06/18/21 16:00: Lactate 0.8 06/18/21 17:19: SARS-CoV-2 (PCR) Not detected, Influenza A Untype (PCR) Not detected, Influenza Type B (PCR) Not detected Result diagrams: 06/18/21 13:39 06/18/21 13:39 Orders (Tests/Meds): ED MEDICATIONS Discontinued Medications Generic Name Dose Route Start Last Admin Trade Name Freq PRN Reason Stop Dose Admin Sodium Chloride 1,000 mls @ 999 ml
[2021-06-18 14:10] LABS: Alanine Aminotransferase 29 U/L (12-78); Albumin/Globulin Ratio 0.9 (1.1-1.8); Alkaline Phosphatase 147 U/L (38-126); Anion Gap 13.7 mEq/L (5-15); Aspartate Amino Transferase 27 U/L (14-36); Bilirubin,Total 0.4 mg/dl (0.2-1.3); Blood Urea Nitrogen 6 mg/dl (7-17); Calcium 9.1 mg/dl (8.4-10.2); Carbon Dioxide 23 mmol/L (22.0-30.0); Chloride 103 mmol/L (98-107); Creatinine Clearance Estimated 111 mL/min (50-200); Estimated Glomerular Filt Rate 91 ml/min (>60); GFR (African American) 111 ML/MIN (>60); Globulin 4.3 g/dL (1.3-3.2); Glucose 145 mg/dl (74-100); Potassium 3.7 mmoL/L (3.5-5.1); Sodium 136 mmol/L (136-145); Total Protein,Serum 8.3 g/dl (6.3-8.2)
--- NOTE | 2021-06-18 14:24 | CT_ITS ---
PROCEDURE INFORMATION: Exam: CT Abdomen And Pelvis With Contrast Exam date and time: 06/18/2021 2:34 PM Age: 45 years old Clinical indication: Abdominal pain; Localized; Lower; Prior surgery; Additional info: Lower abdo pain 1 mo TECHNIQUE: Imaging protocol: Computed tomography of the abdomen and pelvis with contrast. Radiation optimization: All CT scans at this facility use at least one of these dose optimization techniques: automated exposure control; mA and/or kV adjustment per patient size (includes targeted exams where dose is matched to clinical indication); or iterative reconstruction. Contrast material: ISOVUE; Contrast volume: 75 ml; Contrast route: IV; COMPARISON: CT ABDOMEN PELVIS W CON 09/20/2020 3:22 PM FINDINGS: Lungs: 4 mm pulmonary nodule in the right lower lobe Liver: Normal. No mass. Gallbladder and bile ducts: Cholecystectomy. The common duct is prominent. It measures 11 millimeters. This may be due to post cholecystectomy state and elderly status. However, if biliary obstruction is suspected clinically, recommend further evaluation Pancreas: Normal. No ductal dilation. Spleen: Normal. No splenomegaly. Adrenal glands: Normal. No mass. Kidneys and ureters: Subcentimeter low attenuation area in the left kidney is too small for characterization. Stomach and bowel: Findings worrisome for ill-defined mass adjacent to the distal rectosigmoid and sacrum. Rule out malignancy Appendix: Normal appendix Intraperitoneal space: Unremarkable. No free air. No significant fluid collection. Vasculature: Unremarkable. No abdominal aortic aneurysm. Lymph nodes: Unremarkable. No enlarged lymph nodes. Urinary bladder: Unremarkable as visualized. Reproductive: Surgical resection of the uterus Bones/joints: Lytic lesion in the inferior aspect of L5 and the superior aspect of S1. Sagittal series image 45. Axial image 67 This may represent discitis or osteomyelitis . Less likely lytic lesion from malignancy Inflammatory changes between the distal rectosigmoid and the sacrum. Series 3, image 85 There may be a small fluid collection in this region 14 mm.. There are inflammatory changes around the distal aspect of the rectosigmoid. Rule out malignancy in this region.. Soft tissues: Unremarkable. IMPRESSION: 1. Lytic lesion in the inferior aspect of L5 and the superior aspect of S1. Sagittal series image 45. This may represent discitis or osteomyelitis . Less likely lytic lesion from malignancy 2. Inflammatory changes between the distal rectosigmoid and the sacrum. Series 3, image 85 There may be a small fluid collection in this region 14 mm.. There are inflammatory changes around the distal aspect of the rectosigmoid. Rule out malignancy in this region.. 3 4 mm pulmonary nodule in the right lower lobe For patients at low risk (minimal or absent history of smoking and of other known risk factors), no routine follow-up is indicated. For patients at high risk (history of smoking or of other known risk factors), consider optional CT Chest at 12 months. (Reference: Joanne) References: Joanne Varner, et al. Guidelines for Management of Incidental Pulmonary Nodules Detected on CT Images: From the Fleischner Society 2017. Radiology. 2017;284(1):228-243.
[2021-06-18 14:35] LABS: Lipase 18 U/L (23-300)
--- NOTE | 2021-06-18 14:44 | PC.NURSE ---
PT to rad
[2021-06-18 14:52] LABS: Appearance,Urine CLEAR (Clear); Bilirubin,Urine Negative (Negative); Blood, Urine Negative (Negative); Color,Urine YELLOW (Yellow); Glucose,Urine (UA) Negative (Negative); Ketones,Urine Negative (Negative); Leukocyte Esterase,Urine Negative (Negative); Nitrate,Urine Negative (Negative); Protein,Urine Negative (Negative); Specific Gravity, Urine <= 1.005 (1.005-1.030); Urobilinogen,Urine 0.2 EU/dl (0.2)
--- NOTE | 2021-06-18 14:53 | PC.NURSE ---
pt back from rad
--- NOTE | 2021-06-18 15:55 | PC.NURSE ---
medic starting line and getting labs
--- NOTE | 2021-06-18 16:12 | PC.NURSE ---
PT in bed
[2021-06-18 16:33] LABS: Lactic Acid 0.8 mmol/L (0.7-2.1)
[2021-06-18 16:38] LABS: C-Reactive Protein 79.7 mg/L (0-4)
--- NOTE | 2021-06-18 16:39 | PC.NURSE ---
PAged Dr Macedo for possible admit
--- NOTE | 2021-06-18 16:43 | PC.NURSE ---
Dr Macedo called back @ [phone]
--- NOTE | 2021-06-18 16:48 | PC.NURSE ---
request [facility] for transfer [phone]
--- NOTE | 2021-06-18 16:55 | PC.NURSE ---
called MD Everardo is on phone with Dr Guzman, requesting transfer. rad sending images over via [employer]
--- NOTE | 2021-06-18 16:58 | PC.NURSE ---
DR SEVILLA SPOKE WITH DR RICHARDSON NOW SPEAKING WITH [facility]
--- NOTE | 2021-06-18 17:17 | PC.NURSE ---
PT ACCEPTED TO ER BUT PT REFUSES TO GO BY EMS SHE WANTS FAMILY TO TAKE HER
[2021-06-18 17:27] LABS: Coronavirus 19, PCR Not Detected (NotDetected); Influenza A, PCR Not Detected (NotDetected); Influenza B, PCR Not Detected (NotDetected)
[2021-06-18 17:34] LABS: Erythrocyte Sedimentation Rate 125 mm/hr (0-20)
[2021-06-18 19:10] LABS: Barbiturates Screen,Urine Negative ng/ml (<200)
[2021-06-18 19:11] LABS: Benzodiazepines Screen,Urine Negative ng/ml (<200)
[2021-06-18 19:12] LABS: Cannabinoid Screen,Urine Negative ng/ml (<50); Cocaine Screen,Urine Negative ng/ml (<300)
[2021-06-18 19:13] LABS: Methadone Screen,Urine Negative ng/ml (<300); Opiate Screen,Urine Negative ng/ml (<300)
[2021-06-18 19:14] LABS: Phencyclidine Screen,Urine Negative ng/ml (<25)
[2021-06-18 19:22] LABS: Amphetamine/Metha Screen,Urine Positive ng/ml (<1000)
== END 2021-06-18 17:50 | disposition short-term general hospital (02) ==
PROVIDERS: Emergency Provider Emergency Medicine; PCP Family Medicine
DX: M46.26 Osteomyelitis of vertebra, lumbar region (principal); M46.47 Discitis, unspecified, lumbosacral region; F41.8 Other specified anxiety disorders; F17.210 Nicotine dependence, cigarettes, uncomplicated; K59.00 Constipation, unspecified; Z79.899 Other long term (current) drug therapy
CPT/HCPCS: 74177; 80053; 80305; 81001; 83605; 83690; 84145; 85025; 85651; 86140; 87040; 96365; 96366; 96375; 99284; C9803; J2405; Q9967; U0003; U0005

== ENCOUNTER 2021-07-07 01:39 | Inpatient (IN) | payer OTHER, SELFPAY ==
[2021-07-07] VITALS (22 sets, daily range): BP systolic 112–162; BP diastolic 59–95; PULSE 78–120; RESP 14–20; TEMP 36.6–37.3; O2SAT 98–100; BMI 27.4; BMI 26.0
--- NOTE | 2021-07-07 01:57 | CT_ITS ---
PROCEDURE INFORMATION: Exam: CT Abdomen And Pelvis With Contrast Exam date and time: 07/07/2021 2:42 AM Age: 45 years old Clinical indication: Abdominal pain; Patient HX: Prior finding on CT abdomen/pelvis from [place] TECHNIQUE: Imaging protocol: Computed tomography of the abdomen and pelvis with contrast. Radiation optimization: All CT scans at this facility use at least one of these dose optimization techniques: automated exposure control; mA and/or kV adjustment per patient size (includes targeted exams where dose is matched to clinical indication); or iterative reconstruction. Contrast material: ISOVUE; Contrast volume: 75 ml; Contrast route: IV; COMPARISON: CT ABDOMEN PELVIS W CON 06/18/2021 2:34 PM FINDINGS: Lungs: 5 mm subpleural noncalcified nodule within the periphery of the right lower lobe (series 3, image 8), unchanged. Calcified granuloma within the left lower lobe. Liver: Mild hepatomegaly. Gallbladder and bile ducts: Gallbladder surgically absent. Pancreas: Normal. Spleen: Splenic calcifications, compatible with prior granulomatous disease. Adrenal glands: Normal. No mass. Kidneys and ureters: Normal. Stomach and bowel: Normal. Appendix: No evidence of appendicitis. Intraperitoneal space: Unremarkable. No free air. No significant fluid collection. Arteries: Unremarkable. No abdominal aortic aneurysm. Veins: Phleboliths within the pelvis. Lymph nodes: Few small lymph nodes within the retroperitoneum, likely reactive, but nonspecific. Urinary bladder: Unremarkable as visualized. Reproductive: Uterus surgically absent. Bones/joints: L5-S1 disc space narrowing and endplate destruction, similar to prior study, possibly secondary to discitis and spondylitis. Soft tissue attenuation material within the posterior pelvis, possibly infectious/inflammatory and may be related to L5-S1 pathology, similar to prior study. Soft tissues: Normal. IMPRESSION: 1. L5-S1 disc space narrowing and endplate destruction, similar to prior study, possibly secondary to discitis and spondylitis. 2. Soft tissue attenuation material within the posterior pelvis, possibly infectious/inflammatory and may be related to L5-S1 pathology, similar to prior study. 3. 5 mm subpleural noncalcified nodule within the periphery of the right lower lobe (series 3, image 8), unchanged. For patients at low risk (minimal or absent history of smoking and of other known risk factors), no routine follow-up is indicated. For patients at high risk (history of smoking or of other known risk factors), consider optional CT Chest at 12 months. (Reference: Joanne) REFERENCES: Joanne Varner, et al. Guidelines for Management of Incidental Pulmonary Nodules Detected on CT Images: From the Fleischner Society 2017. Radiology. 2017;284(1):228-243.
--- NOTE | 2021-07-07 01:57 | CT_ITS ---
PROCEDURE INFORMATION: Exam: CT Cervical Spine With Contrast Exam date and time: 07/07/2021 2:48 AM Age: 45 years old Clinical indication: Neck pain TECHNIQUE: Imaging protocol: Computed tomography images of the cervical spine with intravenous contrast. Radiation optimization: All CT scans at this facility use at least one of these dose optimization techniques: automated exposure control; mA and/or kV adjustment per patient size (includes targeted exams where dose is matched to clinical indication); or iterative reconstruction. Contrast material: ISOVUE; Contrast volume: 40 ml; Contrast route: IV; COMPARISON: CT CERVICAL SPINE WO CON 10/25/2019 8:36 PM FINDINGS: Bones/joints: No acute fracture. Normal alignment. Discs/Spinal canal/Neural foramina: No significant disc protrusion. No severe spinal canal stenosis. No significant neural foraminal narrowing. Lungs: Lung apices are normal. Soft tissues: Unremarkable. IMPRESSION: No acute findings.
--- NOTE | 2021-07-07 01:57 | CT_ITS ---
PROCEDURE INFORMATION: Exam: CT Lumbar Spine With Contrast Exam date and time: 07/07/2021 2:56 AM Age: 45 years old Clinical indication: Low back pain TECHNIQUE: Imaging protocol: Computed tomography images of the lumbar spine with intravenous contrast. Radiation optimization: All CT scans at this facility use at least one of these dose optimization techniques: automated exposure control; mA and/or kV adjustment per patient size (includes targeted exams where dose is matched to clinical indication); or iterative reconstruction. Contrast material: ISOVUE; Contrast volume: 45 ml; Contrast route: IV; COMPARISON: CT LUMBAR SPINE W CON 09/21/2020 9:[address] abdomen and pelvis dated 06/18/2021 FINDINGS: Vertebrae: L5-S1 disc space narrowing, endplate erosions and irregularity, slightly increased from prior study, most compatible with discitis and spondylitis. Discs/Spinal canal/Neural foramina: L4-L5 degenerative disc disease, manifest by disc space narrowing, vacuum disc phenomenon, and minimal osteophyte formation, similar to comparison study. L5-S1 central canal narrowing and bilateral neural foraminal narrowing, similar to comparison study. Soft tissues: Abnormal heterogeneous soft tissue material surrounding the L5-S1 disc space, likely phlegmon related to discitis. Abnormal ill-defined soft tissue within the posterior pelvis, likely phlegmon related to ongoing L5-S1 discitis. IMPRESSION: 1. L5-S1 disc space narrowing, endplate erosions and irregularity, slightly increased from prior study, most compatible with discitis and spondylitis, progressed from comparison study. Abnormal heterogeneous soft tissue material surrounding the L5-S1 disc space, likely phlegmon related to discitis. 2. Abnormal ill-defined soft tissue within the posterior pelvis, likely phlegmon related to ongoing L5-S1 discitis.
--- NOTE | 2021-07-07 01:57 | CT_ITS ---
PROCEDURE INFORMATION: Exam: CT Thoracic Spine With Contrast Exam date and time: 07/07/2021 2:48 AM Age: 45 years old Clinical indication: Pain in thoracic spine TECHNIQUE: Imaging protocol: Computed tomography images of the thoracic spine with intravenous contrast. Radiation optimization: All CT scans at this facility use at least one of these dose optimization techniques: automated exposure control; mA and/or kV adjustment per patient size (includes targeted exams where dose is matched to clinical indication); or iterative reconstruction. Contrast material: ISOVUE; Contrast volume: 40 ml; Contrast route: IV; COMPARISON: CT THORACIC SPINE W CON 09/21/2020 9:35 AM FINDINGS: Vertebrae: No acute fracture or malalignment. Discs/Spinal canal/Neural foramina: No significant disc protrusion. No severe spinal canal stenosis. No significant neural foraminal narrowing. Soft tissues: Unremarkable. Lymph nodes: Calcified left hilar and subcarinal lymph nodes, compatible with prior granulomatous disease. Lungs: Calcified granuloma within the left lower lobe. Gallbladder and bile ducts: Gallbladder surgically absent. IMPRESSION: No acute fracture or malalignment.
--- NOTE | 2021-07-07 02:16 | HMH.EDGENADL ---
ED Disposition Clinical Impression: Discitis of lumbosacral region, Acute osteomyelitis of lumbar spine, IV drug abuse, Amphetamine abuse Disposition: Xfer Short-Term Hosp Condition on Discharge: Serious Referrals: Cornelia Oneill MD [Primary Care Provider] - - Critical Care Critical Care Time: Yes Attestation: On 07/07/21, the high probability of a clinically significant, sudden or life threatening deterioration of the following system(s) required my full and direct attention, intervention and personal management. The time I documented below is in addition to time spent performing reported procedures but includes the following listed in this critical care notation. Total Critical Care Time: 60 Vital system(s) involved:: Shock (Septic) My critical care processes included: Assessment & monitoring of V/S, Initial and Re-exams, Data Review/Interpretation, Coordinating Care, Medication Orders and management, Documentation Medical Decision Making - Medical Records Medical records reviewed: Yes: I reviewed the patient's medical records. - Danny Inquiry Pt receiving controlled substance: No Vital Signs: 07/07/21 01:39 07/07/21 03:30 07/07/21 04:00 Temperature 98.3 F Temperature Source Oral Pulse Rate 92 H 97 H Pulse Rate [Left] 120 H Respiratory Rate 16 Blood Pressure 125/81 141/87 H Blood Pressure [Right Arm] 162/95 H Blood Pressure Mean Blood Pressure Mean [Right Arm] 117 02 Sat by Pulse Oximetry 99 100 100 Oxygen Delivery Method Room Air Room Air Room Air 07/07/21 04:30 07/07/21 05:00 07/07/21 05:30 Temperature Temperature Source Pulse Rate 91 H 96 H 103 H Pulse Rate [Left] Respiratory Rate Blood Pressure 134/84 141/88 H 128/84 Blood Pressure [Right Arm] Blood Pressure Mean Blood Pressure Mean [Right Arm] 02 Sat by Pulse Oximetry 100 100 100 Oxygen Delivery Method Room Air Room Air Room Air 07/07/21 06:00 07/07/21 06:30 07/07/21 06:38 Temperature Temperature Source Pulse Rate 92 H 92 H 92 H Pulse Rate [Left] Respiratory Rate Blood Pressure 126/75 124/76 113/76 Blood Pressure [Right Arm] Blood Pressure Mean 91 91 Blood Pressure Mean [Right Arm] 02 Sat by Pulse Oximetry 100 99 99 Oxygen Delivery Method Room Air - Lab Data Lab results reviewed: Yes: I reviewed the patient's lab results. Lab Results 07/07/21 02:15: WBC 9.8, RBC 4.05 L, Hgb 11.7 L, Hct 35.2 L, MCV 87.1, MCH 28.9, MCHC 33.1, RDW 15.0, Plt Count 474 H, MPV 7.6, Neut % (Auto) 60.6, Lymph % (Auto) 31.7, [place] % (Auto) 4.7, Eos % (Auto) 1.5, Baso % (Auto) 1.5, Neut # (Auto) 5.9, Lymph # (Auto) 3.1, [place] # (Auto) 0.5, Eos # (Auto) 0.2, Baso # (Auto) 0.1, ESR > 140 H 07/07/21 02:15: Sodium 138, Potassium 3.5, Chloride 104, Carbon Dioxide 26, Anion Gap 11.5, BUN 9, Creatinine 1.00, Estimated Creat Clear 78, Estimated GFR 61, Est GFR ( Amer) 73, Glucose 92, Calcium 9.4, Total Bilirubin 0.4, AST 33, ALT 22, Alkaline Phosphatase 137 H, C-Reactive Protein 105.5 H, Total Protein 8.9 H, Albumin 4.1, Globulin 4.8 H, Albumin/Globulin Ratio 0.9 L, Amylase 47, Lipase 20 L 07/07/21 02:15: Lactate 1.0 07/07/21 02:15: Procalcitonin 0.154 07/07/21 04:07: Urine Color Yellow, Urine Appearance Slightly cloudy, Urine pH 7.5, Ur Specific [place] 1.010, Urine Protein Negative, Urine Glucose (UA) Negative, Urine Ketones Negative, Urine Blood Negative, Urine Nitrate Negative, Urine Bilirubin Negative, Urine Urobilinogen 0.2, Ur Leukocyte Esterase Negative, Urine WBC Occasional, Urine Bacteria 1+ 07/07/21 04:07: Urine Opiates Screen Negative, Urine Methadone Screen Negative, Ur Barbituates Screen Negative, Ur Phencyclidine Scrn Negative, Ur Amphetamines Screen Hearing Therapy Teacher, U Benzodiazepines Scrn Negative, Urine Cocaine Screen Negative, U Marijuana (THC) Screen Negative 07/07/21 05:11: SARS-CoV-2 (PCR) Not detected, Influenza A Untype (PCR) Not detected, Influenza Type B (PCR) Not detected Result diagrams:
[2021-07-07 02:24] LABS: Basophils # 0.1 K/mm3 (0-0.2); Basophils % 1.5 % (0.1-2.0); Eosinophils # 0.2 K/mm3 (0.0-0.4); Eosinophils % 1.5 % (0.1-12.0); Hematocrit 35.2 % (37.0-47.0); Hemoglobin 11.7 g/dL (12.2-16.2); Lymphocytes # 3.1 K/mm3 (0.7-4.5); Lymphocytes % 31.7 % (10-50); Mean Corpuscular HGB Conc 33.1 g/dL (31.8-35.4); Mean Corpuscular Hemoglobin 28.9 pg (27.0-31.2); Mean Corpuscular Volume 87.1 fl (81-99); Mean Platelet Volume 7.6 fl (7.4-10.4); Monocytes # 0.5 K/mm3 (0.1-1.0); Monocytes % 4.7 % (1.7-9.3); Neutrophils # 5.9 K/mm3 (1.8-7.8); Neutrophils % 60.6 % (37.0-80.0); Platelet Count 474 K/mm3 (142-424); Red Blood Count 4.05 M/mm3 (4.20-5.40); White Blood Count 9.8 K/mm3 (4.8-10.8)
[2021-07-07 02:34] LABS: Alanine Aminotransferase 22 U/L (12-78); Albumin Level 4.1 g/dl (3.5-5.0); Albumin/Globulin Ratio 0.9 (1.1-1.8); Alkaline Phosphatase 137 U/L (38-126); Amylase 47 U/L (30-110); Anion Gap 11.5 mEq/L (5-15); Aspartate Amino Transferase 33 U/L (14-36); Bilirubin,Total 0.4 mg/dl (0.2-1.3); Blood Urea Nitrogen 9 mg/dl (7-17); Calcium 9.4 mg/dl (8.4-10.2); Carbon Dioxide 26 mmol/L (22.0-30.0); Chloride 104 mmol/L (98-107); Creatinine Clearance Estimated 78 mL/min (50-200); Estimated Glomerular Filt Rate 61 ml/min (>60); GFR (African American) 73 ML/MIN (>60); Globulin 4.8 g/dL (1.3-3.2); Glucose 92 mg/dl (74-100); Lipase 20 U/L (23-300); Potassium 3.5 mmoL/L (3.5-5.1); Sodium 138 mmol/L (136-145); Total Protein,Serum 8.9 g/dl (6.3-8.2)
[2021-07-07 02:40] LABS: C-Reactive Protein 105.5 mg/L (0-4)
[2021-07-07 02:54] LABS: Erythrocyte Sedimentation Rate > 140 mm/hr (0-20)
[2021-07-07 04:16] LABS: Microscopic, Urine URINE MICROSCOPIC (MICROSCOPIC)
[2021-07-07 04:17] LABS: Bilirubin,Urine Negative (Negative); Blood, Urine Negative (Negative); Color,Urine YELLOW (Yellow); Glucose,Urine (UA) Negative (Negative); Ketones,Urine Negative (Negative); Leukocyte Esterase,Urine Negative (Negative); Nitrate,Urine Negative (Negative); PH,Urine 7.5 (5.0-8.5); Protein,Urine Negative (Negative); Urobilinogen,Urine 0.2 EU/dl (0.2)
[2021-07-07 04:29] LABS: Appearance,Urine Slightly Cloudy (Clear)
[2021-07-07 04:30] LABS: Benzodiazepines Screen,Urine Negative ng/ml (<200)
[2021-07-07 04:31] LABS: Barbiturates Screen,Urine Negative ng/ml (<200)
[2021-07-07 04:32] LABS: Cannabinoid Screen,Urine Negative ng/ml (<50); Methadone Screen,Urine Negative ng/ml (<300)
[2021-07-07 04:33] LABS: Cocaine Screen,Urine Negative ng/ml (<300)
[2021-07-07 04:34] LABS: Opiate Screen,Urine Negative ng/ml (<300); Phencyclidine Screen,Urine Negative ng/ml (<25)
[2021-07-07 04:35] LABS: Bacteria,Urine 1+ /lpf; WBC,Urine Occasional #/hpf (0-3)
[2021-07-07 04:39] LABS: Procalcitonin 0.154 ng/mL (0.0-2.0)
--- NOTE | 2021-07-07 04:51 | PC.NURSE ---
Dr. Silva on phone with
--- NOTE | 2021-07-07 05:06 | PC.NURSE ---
Phone call to [facility]: transfer of patient, Dr. German is hospitalist circulation sales representative he is being paged. No beds available at this time but may by change of shift. Dr. German has accepted patient may have a bed at change of shift this morning
--- NOTE | 2021-07-07 05:10 | PC.NURSE ---
SPOKE WITH DIAZ AT [facility]- SHE GAVE CORRECT DOSING AND STATES SHE WILL ENTER IT INTO THE COMPUTER.
[2021-07-07 05:14] LABS: Coronavirus 19, PCR Not Detected (NotDetected); Influenza A, PCR Not Detected (NotDetected); Influenza B, PCR Not Detected (NotDetected)
--- NOTE | 2021-07-07 05:28 | PC.NURSE ---
PT ACCEPTED TO [facility]. FACE SHEET FAXED TO [facility] AT [phone]
--- NOTE | 2021-07-07 05:29 | XR_ITS ---
PROCEDURE INFORMATION: Exam: XR Chest Exam date and time: 07/07/2021 5:28 AM Age: 45 years old Clinical indication: Sternal or substernal pain TECHNIQUE: Imaging protocol: XR of the chest. Views: 2 views. COMPARISON: CR XR CHEST PORTABLE 09/20/2020 3:09 PM FINDINGS: Lungs: Unremarkable. No consolidation. Pleural spaces: Unremarkable. No pleural effusion. No pneumothorax. Heart/Mediastinum: Unremarkable. No cardiomegaly. Bones/joints: Unremarkable. IMPRESSION: No acute findings.
--- NOTE | 2021-07-07 09:12 | PC.NURSE ---
Went in to assess pt and update her on POC. Advised we were still waiting on a bed assignment from [place]. Repositioned pt in bed and advised her we had ordered her a clear liquid tray. No other needs at this time.
--- NOTE | 2021-07-07 10:12 | PC.NURSE ---
[facility] CALLED ASKING FOR PT UPDATE. THEY STATES PT WILL PROBABLY NOT GET A BED ANYTIME TODAY. THEY WILL CALL [facility] AND WILL RETURN CALL FOR UPDATE ON BED STATUS
--- NOTE | 2021-07-07 10:15 | PC.NURSE ---
Calling Dr. Eldridge at this time
--- NOTE | 2021-07-07 10:27 | PC.NURSE ---
Notified care management of admission
--- NOTE | 2021-07-07 10:40 | PC.NURSE ---
Updated pt on POC. That she would be admitted here, while waiting on bed for [facility]
--- NOTE | 2021-07-07 10:41 | PC.NURSE ---
1018 bed assignment requested, room 213. all staff notified
--- NOTE | 2021-07-07 11:23 | PC.NURSE ---
REPORT CALLED TO FLOOR
--- NOTE | 2021-07-07 11:32 | PC.NURSE ---
Pt arrived to the floor at this time
--- NOTE | 2021-07-07 11:48 | HMH.PHACONS ---
- Pharmacy Consult Date: 07/07/21 Time: 11:48 Referring provider: DR. LEMONS Reason for Consult:: VANCOMYCIN DOSING Allergies and ADEs:: Allergies Allergy/AdvReac Type Severity Reaction Status Date / Time No Known Allergies Allergy Verified 02/01/19 03:27 Home Medications:: Home Medications Medication Instructions Recorded Confirmed Type No Known Home Medications 07/07/21 07/07/21 History Height: 1.57 m Weight: 64.524 kg Laboratory Results:: Laboratory Results - last 24 hr 07/07/21 02:15: WBC 9.8, RBC 4.05 L, Hgb 11.7 L, Hct 35.2 L, MCV 87.1, MCH 28.9, MCHC 33.1, RDW 15.0, Plt Count 474 H, MPV 7.6, Neut % (Auto) 60.6, Lymph % (Auto) 31.7, [place] % (Auto) 4.7, Eos % (Auto) 1.5, Baso % (Auto) 1.5, Neut # (Auto) 5.9, Lymph # (Auto) 3.1, [place] # (Auto) 0.5, Eos # (Auto) 0.2, Baso # (Auto) 0.1, ESR > 140 H 07/07/21 02:15: Sodium 138, Potassium 3.5, Chloride 104, Carbon Dioxide 26, Anion Gap 11.5, BUN 9, Creatinine 1.00, Estimated Creat Clear 78, Estimated GFR 61, Est GFR ( Amer) 73, Glucose 92, Calcium 9.4, Total Bilirubin 0.4, AST 33, ALT 22, Alkaline Phosphatase 137 H, C-Reactive Protein 105.5 H, Total Protein 8.9 H, Albumin 4.1, Globulin 4.8 H, Albumin/Globulin Ratio 0.9 L, Amylase 47, Lipase 20 L 07/07/21 02:15: Lactate 1.0 07/07/21 02:15: Procalcitonin 0.154 07/07/21 04:07: Urine Color Yellow, Urine Appearance Slightly cloudy, Urine pH 7.5, Ur Specific [place] 1.010, Urine Protein Negative, Urine Glucose (UA) Negative, Urine Ketones Negative, Urine Blood Negative, Urine Nitrate Negative, Urine Bilirubin Negative, Urine Urobilinogen 0.2, Ur Leukocyte Esterase Negative, Urine WBC Occasional, Urine Bacteria 1+ 04/15/22 04:07: Urine Opiates Screen Negative, Urine Methadone Screen Negative, Ur Barbituates Screen Negative, Ur Phencyclidine Scrn Negative, Ur Amphetamines Screen Manager Database, U Benzodiazepines Scrn Negative, Urine Cocaine Screen Negative, U Marijuana (THC) Screen Negative 07/07/21 05:11: SARS-CoV-2 (PCR) Not detected, Influenza A Untype (PCR) Not detected, Influenza Type B (PCR) Not detected Medical History: Reports:: Anxiety, Cancer, Depression, Urinary Tract Infection Denies:: Diabetes Mellitus Type 1, Diabetes Mellitus Type 2 Assessment and Plan - Assessment and plan all Dx Assessment and Plan for all problems:: Age: 45 yo Serum creatinine: 1 mg/dL Height: 62.0 Inches Weight (kg): 68 Assessment: IBW (kg): 50.10 Dosing wt(kg): 68 Estimated Creatinine clearance (ml/min): 57.4 CRCL method: Cockcroft and Gault using ibw(default). Drug selected: Vancomycin Loading dose (mg): 0 Vd (liters): 54.4 (factor used: 0.8 L/kg) Dylan (hr-1): 0.052 Half life (hrs): 13.33 Recommended dose: 1250 mg Interval: 18 hrs Infusion time (hrs): 2.0 Predicted peak (mcg/mL): 35.9 Predicted trough (mcg/mL): 15.62 Total body weight is being used for vancomycin dosing. Recommendations: Patient received 1x dose of Vancomycin 1 gm this am ~0600. Give Vancomycin 1250 mg q 18 hrs with an expected Cpeak of 35.9 mcg/ml and an expected Ctrough of 15.62 mcg/ml. ----Vanco only - ignore for aminoglycosides----- CLvanco= 2.83 L/hr AUC 0-24 /MARISELA Data: MARISELA 0.5 mcg/mL: AUC/MARISELA: 1177.9 MARISELA 1.0 mcg/mL: AUC/MARISELA: 588.9 --------- MARISELA 1.5 mcg/mL: AUC/MARISELA: 392.6 MARISELA 2.0 mcg/mL: AUC/MARISELA: 294.5 Thank you for the consult, will continue to follow.
--- NOTE | 2021-07-07 12:44 | HMH.HP ---
*Admission Date: 07/07/21 <Chirstina Teresa 07/07/21 12:54> *Chief complaint: low back pain <Christina Teresa 07/07/21 12:54> *History of present illness: Ms. Grimaldo is a 45-year-old female who arrived to the ER today in police custody for medical clearance to be taken to care home. She apparently had a warrant out for her arrest. She reported to the ER physician that she had a spinal infection and was seen in emergency room 2 weeks ago. She states they wanted to admit her, but she left AMA prior to treatment. She is a patient of Dr. Ahn. She has not had any follow-up since her ER visit. She is complaining of excruciating pain in her low back that radiates down her legs. She does have a history of IV drug use. She was evaluated in the emergency room and had a CT of her entire spine. The cervical and thoracic CT's were normal. The lumbar CT showed L5-S1 disc space narrowing, endplate erosions and irregularity, slightly increased from previous study most compatible with discitis and spondylitis. There was abnormal heterogenous soft tissue material surrounding the L5-S1 disc space. There was also abnormal ill-defined soft tissue within the posterior pelvis likely phlegmon related to ongoing L5-S1 discitis. The ER physician tried to get her transferred and there were no beds. She is on a wait list at and [place]. <Christina Teresa 07/07/21 12:54> [facility] History I have reviewed the patient's past medical history: Yes <Christina Teresa 07/07/21 12:54> Medical History: Reports:: Anxiety, Cancer, Depression, Urinary Tract Infection Denies:: Diabetes Mellitus Type 1, Diabetes Mellitus Type 2 <Christina Teresa 07/07/21 12:54> *Have you ever received a pneumonia vaccine?: No <Christina Teresa 07/07/21 12:54> *Have you received a flu vaccine this season?: No <Christina Teresa 07/07/21 12:54> Other Surgeries: Yes: , Hysterectomy-Partial, Tubal Ligation, Other (back sx) <Christina Teresa 07/07/21 12:54> Amputation: No <Christina Teresa 07/07/21 12:54> Fractures: No <SachasergeyChristina 07/07/21 12:54> - *Social History Smoking Status: Current every day smoker <Christina Teresa 07/07/21 12:54> Tobacco Type: cigarettes <SachasergeyChristina 07/07/21 12:54> # Packs/Day (cigarettes): 1 <Christina Teresa 07/07/21 12:54> Alcohol Intake: never <Christina Teresa 07/07/21 12:54> Substance Use Type: other <Doug Teresaa 07/07/21 12:54> *Occupational Status:: unemployed <Christina Teresa 07/07/21 12:54> Housing: house <SachasergeyChristina 07/07/21 12:54> *Travel in the last 8 weeks: None <Christina Teresa 07/07/21 12:54> - Psychiatric History Pschychiatric History:: Reports:: Anxiety, Depression <Christina Teresa 07/07/21 12:54> Family Hx:: No significant family history <MalickChristina 07/07/21 12:54> Review of Systems - Constitutional Denies chills, Denies fever(s) <Christina Teresa 07/07/21 12:54> - Eyes Denies blurry vision, Denies double vision <Christina Teresa 07/07/21 12:54> - ENT Denies nasal congestion, Denies sore throat <Christina Teresa 07/07/21 12:54> - *Cardiovascular Denies chest pain, Denies shortness of breath <Christina Teresa 07/07/21 12:54> - *Respiratory Denies cough, Denies shortness of breath <Christina Teresa 07/07/21 12:54> - *Gastrointestinal Denies abdominal pain, Denies loose stools, Denies nausea, Denies vomiting <Christina Teresa 07/07/21 12:54> - *Genitourinary Denies difficulty urinating, Denies painful urination <Christina Teresa 07/07/21 12:54> - *Musculoskeletal Reports back pain, Reports radiating pain into limb <Christina Teresa - 07/07/21 12:54> - *Neurologic Reports tingling/numbness/burning sensations (down both legs), Reports weakness, Denies localized weakness, Denies headache(s), Denies seizure-like activity <Christina Teresa - 07/07/21 12:54> Meds Home Medications Medication Instructions Recorded Confirmed Type No Known Home Medications 07/07/21
--- NOTE | 2021-07-07 13:30 | P.CONPHA_ITS ---
[facility] Pharmacy VTE Monitoring - Patient Demographics Admission date: 07/07/21 Report Date: 07/07/21 Time: 13:30 Allergies/Adverse Reactions: Patient Allergies No Known Allergies Allergy (Verified 02/01/19 03:27) Height: 1.57 m Weight: 64.524 kg Patient Problems: Current Active Problems IV drug abuse (Acute) Discitis of lumbosacral region (Acute) Acute osteomyelitis of lumbar spine (Acute) Amphetamine abuse (Acute) - VTE Risk Labs: VTE Related Lab Results Hgb 11.7 g/dL (12.2-16.2) L 07/07/21 02:15 Hct 35.2 % (37.0-47.0) L 07/07/21 02:15 Plt Count 474 K/mm3 (142-424) H 07/07/21 02:15 BUN 9 mg/dl (7-17) 07/07/21 02:15 Creatinine 1.00 mg/dl (0.52-1.04) 07/07/21 02:15 Estimated Creat Clear 78 mL/min (50-200) 07/07/21 02:15 Was VTE Risk Assessment Performed: Yes VTE Score: 4 VTE Risk Level: Low Risk - Prophylaxis VTE Prophylaxis Ordered?: Yes Types of VTE Prophylaxis: TEDS Knee High, Pharmacological Location of Applied Device: Bilateral Lower Extremeties Pharmacologic Type: Enoxaparin
--- NOTE | 2021-07-07 22:47 | PC.NURSE ---
[facility] states still no beds at this time. Updated report given.
[2021-07-08 04:58] VITALS: BP 132/82; PULSE 74; RESP 16; TEMP 37.1; O2SAT 99
[2021-07-08 05:03] VITALS: BMI 26.5
[2021-07-08 06:39] LABS: Basophils # 0.1 K/mm3 (0-0.2); Basophils % 0.7 % (0.1-2.0); Eosinophils # 0.1 K/mm3 (0.0-0.4); Eosinophils % 1.6 % (0.1-12.0); Hematocrit 34.7 % (37.0-47.0); Hemoglobin 11.1 g/dL (12.2-16.2); Lymphocytes # 3.5 K/mm3 (0.7-4.5); Lymphocytes % 38.8 % (10-50); Mean Corpuscular Hemoglobin 28.2 pg (27.0-31.2); Mean Platelet Volume 7.7 fl (7.4-10.4); Monocytes # 0.5 K/mm3 (0.1-1.0); Monocytes % 5.2 % (1.7-9.3); Neutrophils # 4.8 K/mm3 (1.8-7.8); Neutrophils % 53.7 % (37.0-80.0); Platelet Count 456 K/mm3 (142-424); Red Blood Count 3.94 M/mm3 (4.20-5.40); Red Cell Distribution Width 15.3 % (11.5-17.5); White Blood Count 8.9 K/mm3 (4.8-10.8)
[2021-07-08 06:49] LABS: Chloride 112 mmol/L (98-107); Sodium 141 mmol/L (136-145)
[2021-07-08 06:50] LABS: Potassium 3.9 mmoL/L (3.5-5.1)
[2021-07-08 06:52] LABS: Blood Urea Nitrogen 6 mg/dl (7-17); Creatinine Clearance Estimated 150 mL/min (50-200); Estimated Glomerular Filt Rate 135 ml/min (>60); GFR (African American) 163 ML/MIN (>60)
[2021-07-08 06:53] LABS: Anion Gap 10.9 mEq/L (5-15); Calcium 8.1 mg/dl (8.4-10.2); Carbon Dioxide 22 mmol/L (22.0-30.0); Glucose 107 mg/dl (74-100)
[2021-07-08 08:00] VITALS: BP 130/85; PULSE 70; RESP 20; TEMP 36.8; O2SAT 100
--- NOTE | 2021-07-08 08:31 | HMH.ACPN2 ---
<Christina Teresa - Last Filed: 07/08/21 08:31> Internal Medicine - PN: Subj *Date: 07/08/21 *Time: 08:31 Interval history: Patient states she is in a lot of pain this morning. According to her nurse she has only had Tylenol for pain. She is on a wait list at both and [place] for a bed. She states she was able to rest at intervals and did eat some breakfast. Exam Vital signs and Labs for Last 24 Hours: Temp Pulse Resp BP Pulse Ox 98.7 F 74 16 132/82 99 07/08/21 04:58 07/08/21 04:58 07/08/21 04:58 07/08/21 04:58 07/08/21 04:58 Laboratory Results - last 24 hr 07/08/21 06:10: WBC 8.9, RBC 3.94 L, Hgb 11.1 L, Hct 34.7 L, MCV 88.0, MCH 28.2, MCHC 32.0, RDW 15.3, Plt Count 456 H, MPV 7.7, Neut % (Auto) 53.7, Lymph % (Auto) 38.8, [place] % (Auto) 5.2, Eos % (Auto) 1.6, Baso % (Auto) 0.7, Neut # (Auto) 4.8, Lymph # (Auto) 3.5, [place] # (Auto) 0.5, Eos # (Auto) 0.1, Baso # (Auto) 0.1 07/08/21 06:10: Sodium 141, Potassium 3.9, Chloride 112 H, Carbon Dioxide 22, Anion Gap 10.9, BUN 6 L D, Creatinine 0.50 L D, Estimated Creat Clear 150, Estimated GFR 135, Est GFR ( Amer) 163 D, Glucose 107 H, Calcium 8.1 L I & O for Last 24 hours: Intake & Output 07/05/21 07/06/21 07/07/21 07/08/21 11:59 11:59 11:59 11:59 Intake Total 358 / 358 Output Total 900 / 900 Balance -542 / -542 Weight 142 lb 4 oz 144 lb 3.2 oz - Constitutional no acute distress - *Routine Respiratory Exam Present: CTA bilaterally - *Routine Cardiovascular Exam Present: RRR - *Routine Abdominal Exam Present: soft, normoactive bowel sounds. Absent: tenderness - *Routine Extremities Exam Absent: cyanosis, clubbing, edema - *Routine Skin Exam Present: warm. Absent: rash - *Routine Neurological Exam Present: alert, oriented X3 Assessment and Plan (1) IV drug abuse Status: Acute Category: Social Hx Code(s): F19.10 - Other psychoactive substance abuse, uncomplicated (2) Discitis of lumbosacral region Status: Acute Category: Medical Code(s): M46.47 - Discitis, unspecified, lumbosacral region (3) Phlegmon Status: Acute Category: Medical Code(s): L02.91 - Cutaneous abscess, unspecified - Assessment and plan all Dx Assessment and Plan for all problems:: We will continue IV antibiotics and await bed. Nursing was asking about something for pain. Will discuss with Dr. Eldridge. <Ken Eldridge - Last Filed: 07/08/21 09:18> Internal Medicine - PN: Subj *Date: 07/08/21 *Time: 09:14 Exam Vital signs and Labs for Last 24 Hours: Temp Pulse Resp BP Pulse Ox 98.2 F 70 20 130/85 100 07/08/21 08:00 07/08/21 08:00 07/08/21 08:00 07/08/21 08:00 07/08/21 08:00 Laboratory Results - last 24 hr 07/08/21 06:10: WBC 8.9, RBC 3.94 L, Hgb 11.1 L, Hct 34.7 L, MCV 88.0, MCH 28.2, MCHC 32.0, RDW 15.3, Plt Count 456 H, MPV 7.7, Neut % (Auto) 53.7, Lymph % (Auto) 38.8, [place] % (Auto) 5.2, Eos % (Auto) 1.6, Baso % (Auto) 0.7, Neut # (Auto) 4.8, Lymph # (Auto) 3.5, [place] # (Auto) 0.5, Eos # (Auto) 0.1, Baso # (Auto) 0.1 07/08/21 06:10: Sodium 141, Potassium 3.9, Chloride 112 H, Carbon Dioxide 22, Anion Gap 10.9, BUN 6 L D, Creatinine 0.50 L D, Estimated Creat Clear 150, Estimated GFR 135, Est GFR ( Amer) 163 D, Glucose 107 H, Calcium 8.1 L I & O for Last 24 hours: Intake & Output 07/05/21 07/06/21 07/07/21 07/08/21 11:59 11:59 11:59 11:59 Intake Total 838 / 838 Output Total 1700 / 1700 Balance -862 / -862 Weight 142 lb 4 oz 144 lb 3.2 oz Assessment and Plan (1) Discitis of lumbosacral region Status: Acute Category: Medical Code(s): M46.47 - Discitis, unspecified, lumbosacral region (2) Phlegmon Status: Acute Category: Medical Code(s): L02.91 - Cutaneous abscess, unspecified (3) IV drug abuse Status: Acute Category: Social Hx Code(s): F19.10 - Other psychoactive substance abuse, uncomplicated - Assessment and plan all Dx Ass
--- NOTE | 2021-07-08 08:50 | P.CONPHA_ITS ---
- Pharmacy Consult Date: 07/08/21 Time: 08:50 Referring provider: DR LEMONS Reason for Consult:: VANCOMYCIN DOSING ADJUSTMENT Allergies and ADEs:: Allergies Allergy/AdvReac Type Severity Reaction Status Date / Time No Known Allergies Allergy Verified 02/01/19 03:27 Home Medications:: Home Medications Medication Instructions Recorded Confirmed Type No Known Home Medications 07/07/21 07/07/21 History Height: 1.57 m Weight: 65.408 kg Laboratory Results:: Laboratory Results - last 24 hr 07/08/21 06:10: WBC 8.9, RBC 3.94 L, Hgb 11.1 L, Hct 34.7 L, MCV 88.0, MCH 28.2, MCHC 32.0, RDW 15.3, Plt Count 456 H, MPV 7.7, Neut % (Auto) 53.7, Lymph % (Auto) 38.8, [place] % (Auto) 5.2, Eos % (Auto) 1.6, Baso % (Auto) 0.7, Neut # (Auto) 4.8, Lymph # (Auto) 3.5, [place] # (Auto) 0.5, Eos # (Auto) 0.1, Baso # (Auto) 0.1 07/08/21 06:10: Sodium 141, Potassium 3.9, Chloride 112 H, Carbon Dioxide 22, Anion Gap 10.9, BUN 6 L D, Creatinine 0.50 L D, Estimated Creat Clear 150, Estimated GFR 135, Est GFR ( Amer) 163 D, Glucose 107 H, Calcium 8.1 L Medical History: Reports:: Anxiety, Cancer, Depression, Urinary Tract Infection Denies:: Diabetes Mellitus Type 1, Diabetes Mellitus Type 2 Assessment and Plan (1) IV drug abuse Status: Acute Category: Social Hx Code(s): F19.10 - Other psychoactive substance abuse, uncomplicated (2) Discitis of lumbosacral region Status: Acute Category: Medical Code(s): M46.47 - Discitis, unspecified, lumbosacral region (3) Phlegmon Status: Acute Category: Medical Code(s): L02.91 - Cutaneous abscess, unspecified - Assessment and plan all Dx Assessment and Plan for all problems:: IMPROVEMENT IN SRCR, ADJUSTED VANCOMYCIN 1250 MG IV FROM Q18H TO Q12H. Objective: Age: 45 yo Serum creatinine: 0.5 mg/dL Height: 62.0 Inches Weight (kg): 68 Assessment: IBW (kg): 50.10 Dosing wt(kg): 68 Estimated Creatinine clearance (ml/min): 114.7 CRCL method: Cockcroft and Gault using ibw(default). Drug selected: Vancomycin Loading dose (mg): Vd (liters): 47.6 (factor used: 0.7 L/kg) Dylan (hr-1): 0.100 Half life (hrs): 6.93 CLvanco=?? 4.760 L/hr Recommended dose: 1250 mg Interval: 12 hrs Infusion time (hrs): 2.0 Predicted peak (mcg/mL): 34.1 Predicted trough (mcg/mL): 12.54 Total body weight is being used for vancomycin dosing. Recommendations: Give Vancomycin 1250 mg q 12 hrs with an expected Cpeak of 34.1 mcg/ml and an expected Ctrough of 12.54 mcg/ml AUC 0-24 /MARISELA Data: MARISELA 1.0 mcg/mL:?? AUC/MARISELA:? 525.2 Thank you for the consult, will continue to follow.
--- NOTE | 2021-07-08 10:36 | PC.NURSE ---
Called [facility] and checked on status of patient bed. pt is still on wait list for a bed at [facility], but no bed is available at this time
[2021-07-08 16:00] VITALS: BP 117/73; PULSE 87; RESP 18; TEMP 36.9; O2SAT 99
[2021-07-08 21:11] VITALS: BP 131/77; PULSE 94; RESP 16; TEMP 37.1; O2SAT 100
[2021-07-08 21:49] LABS: Vancomycin,Trough 8.3 ug/mL (5.0-10.0)
--- NOTE | 2021-07-08 22:19 | PC.NURSE ---
Talked to pt access at [place] regarding status of transfer. No beds available at this time. Updated on pt condition. Pt access states they will call back around 0300 for another update.
--- NOTE | 2021-07-08 22:20 | PC.NURSE ---
Talked to Pamela from [facility] regarding vanco trough. Per pharmacist, go ahead with ordered dose. No changes in dose or frequency at this time.
[2021-07-09 02:14] LABS: Basophils # 0.1 K/mm3 (0-0.2); Basophils % 1.3 % (0.1-2.0); Eosinophils # 0.1 K/mm3 (0.0-0.4); Eosinophils % 1.1 % (0.1-12.0); Hematocrit 31.2 % (37.0-47.0); Hemoglobin 10.2 g/dL (12.2-16.2); Lymphocytes # 4.5 K/mm3 (0.7-4.5); Lymphocytes % 42.1 % (10-50); Mean Corpuscular HGB Conc 32.7 g/dL (31.8-35.4); Mean Corpuscular Volume 85.7 fl (81-99); Monocytes # 0.5 K/mm3 (0.1-1.0); Neutrophils # 5.4 K/mm3 (1.8-7.8); Neutrophils % 50.5 % (37.0-80.0); Platelet Count 434 K/mm3 (142-424); Red Blood Count 3.64 M/mm3 (4.20-5.40); Red Cell Distribution Width 15.3 % (11.5-17.5); White Blood Count 10.7 K/mm3 (4.8-10.8)
[2021-07-09 02:30] LABS: Anion Gap 9.7 mEq/L (5-15); Blood Urea Nitrogen 5 mg/dl (7-17); Calcium 8.3 mg/dl (8.4-10.2); Carbon Dioxide 23 mmol/L (22.0-30.0); Chloride 112 mmol/L (98-107); Creatinine Clearance Estimated 150 mL/min (50-200); Estimated Glomerular Filt Rate 135 ml/min (>60); GFR (African American) 163 ML/MIN (>60); Glucose 104 mg/dl (74-100); Potassium 3.7 mmoL/L (3.5-5.1); Sodium 141 mmol/L (136-145)
[2021-07-09 02:36] LABS: C-Reactive Protein 25.6 mg/L (0-4)
[2021-07-09 03:08] LABS: Vancomycin,Peak 24.1 ug/ml (11-39)
--- NOTE | 2021-07-09 05:37 | PC.NURSE ---
Late entry - spoke with pt access at [place] - still no beds at this time.
--- NOTE | 2021-07-09 05:37 | PC.NURSE ---
No acute episodes thus far during my shift. Pt did take a shower this shift. After shower pt complaining of significant pain in legs and back. Medicated per MAR. After medication and rest - pain improved. IV infusing per order. Call light in reach. No needs voiced at this time.
[2021-07-09 05:46] VITALS: BP 130/75; PULSE 87; RESP 18; TEMP 36.9; O2SAT 99
[2021-07-09 05:47] VITALS: BMI 25.9
[2021-07-09 08:00] VITALS: BP 149/78; PULSE 97; RESP 20; TEMP 37.1; O2SAT 99
--- NOTE | 2021-07-09 08:44 | P.CONPHA_ITS ---
- Pharmacy Consult Date: 07/09/21 Time: 08:44 Referring provider: DR LEMONS Reason for Consult:: VANCOMYCIN DOSING ADJUSTMENT Allergies and ADEs:: Allergies Allergy/AdvReac Type Severity Reaction Status Date / Time No Known Allergies Allergy Verified 02/01/19 03:27 Home Medications:: Home Medications Medication Instructions Recorded Confirmed Type No Known Home Medications 07/07/21 07/07/21 History Height: 1.57 m Weight: 64.093 kg Laboratory Results:: Laboratory Results - last 24 hr 07/08/21 21:18: Vancomycin Trough 8.3 07/09/21 02:00: WBC 10.7, RBC 3.64 L, Hgb 10.2 L, Hct 31.2 L, MCV 85.7, MCH 28.0, MCHC 32.7, RDW 15.3, Plt Count 434 H, MPV 8.0, Neut % (Auto) 50.5, Lymph % (Auto) 42.1, [place] % (Auto) 5.0, Eos % (Auto) 1.1, Baso % (Auto) 1.3, Neut # (Auto) 5.4, Lymph # (Auto) 4.5, [place] # (Auto) 0.5, Eos # (Auto) 0.1, Baso # (Auto) 0.1 07/09/21 02:00: Sodium 141, Potassium 3.7, Chloride 112 H, Carbon Dioxide 23, Anion Gap 9.7, BUN 5 L, Creatinine 0.50 L, Estimated Creat Clear 150, Estimated GFR 135, Est GFR ( Amer) 163, Glucose 104 H, Calcium 8.3 L, C-Reactive Protein 25.6 H D 07/09/21 02:00: Vancomycin Peak 24.1 Medical History: Reports:: Anxiety, Cancer, Depression, Urinary Tract Infection Denies:: Diabetes Mellitus Type 1, Diabetes Mellitus Type 2 Assessment and Plan (1) Discitis of lumbosacral region Status: Acute Category: Medical Code(s): M46.47 - Discitis, unspecified, lumbosacral region (2) Phlegmon Status: Acute Category: Medical Code(s): L02.91 - Cutaneous abscess, unspecified (3) IV drug abuse Status: Acute Category: Social Hx Code(s): F19.10 - Other psychoactive substance abuse, uncomplicated - Assessment and plan all Dx Assessment and Plan for all problems:: Pharmacokinetic dosing service Weight: 68 Kilograms Vancomycin single level analysis: Current dose being given: 1250 mg Current dosing interval: 12 hrs Current infusion time (hrs): 2 Single level Trough Data: Trough level obtained: 8.3 mcg/ml Timing of trough - # of hrs before next dose: 0.5 Hrs Desired peak: 35 mcg/ml Desired trough: 12.5 mcg/ml Diagnosis: SPINAL ABSCESS Estimated PK Parameters: New rate constant (jayy): 0.124 hr-1 Half-life: 5.59 Hours Vd from levels: 47.60 Liters (0.7 L/kg) CLvanco=?? 5.902 L/hr Estimated New Dose and Interval Recommended dose: 1356.6 mg Recommended interval: 10.3 Hrs Recommendations: Give Vancomycin 1500 mg q 12 hrs TO START 07/09/21 AT 10:00. Infuse over 2 hrs Expected Cpeak: 36.0 mcg/mL Expected Ctrough: 10.4 mcg/mL AUC 0-24 /MARISELA Data: MARISELA 0.5 mcg/mL:?? AUC/MARISELA:? 1016.6 MARISELA 1.0 mcg/mL:?? AUC/MARISELA:? 508.3 Thank you for the consult, will continue to follow.
--- NOTE | 2021-07-09 10:04 | P.PN_ITS ---
Internal Medicine - PN: Subj *Date: 07/09/21 *Time: 10:04 Interval history: No acute events since yesterday. She is requiring frequent doses of pain meds. She has been up to the bathroom. Non bowel or bladder dysfunction. Exam Vital signs and Labs for Last 24 Hours: Temp Pulse Resp BP Pulse Ox 98.7 F 97 H 20 149/78 H 99 07/09/21 08:00 07/09/21 08:00 07/09/21 08:00 07/09/21 08:00 07/09/21 08:00 Laboratory Results - last 24 hr 07/08/21 21:18: Vancomycin Trough 8.3 07/09/21 02:00: WBC 10.7, RBC 3.64 L, Hgb 10.2 L, Hct 31.2 L, MCV 85.7, MCH 28.0, MCHC 32.7, RDW 15.3, Plt Count 434 H, MPV 8.0, Neut % (Auto) 50.5, Lymph % (Auto) 42.1, [place] % (Auto) 5.0, Eos % (Auto) 1.1, Baso % (Auto) 1.3, Neut # (Auto) 5.4, Lymph # (Auto) 4.5, [place] # (Auto) 0.5, Eos # (Auto) 0.1, Baso # (Auto) 0.1 07/09/21 02:00: Sodium 141, Potassium 3.7, Chloride 112 H, Carbon Dioxide 23, Anion Gap 9.7, BUN 5 L, Creatinine 0.50 L, Estimated Creat Clear 150, Estimated GFR 135, Est GFR ( Amer) 163, Glucose 104 H, Calcium 8.3 L, C-Reactive Protein 25.6 H D 07/09/21 02:00: Vancomycin Peak 24.1 I & O for Last 24 hours: Intake & Output 07/06/21 07/07/21 07/08/21 07/09/21 11:59 11:59 11:59 11:59 Intake Total 838 / 838 2029 / 2029 Output Total 1700 / 2200 2200 / 2200 Balance -862 / -1362 -170 / -170 Weight 142 lb 4 oz 144 lb 3.2 oz 141 lb 4.8 oz Microbiology Reports for the Last 24 Hours: Microbiology 07/07/21 02:15 Blood Blood Culture - Preliminary NO GROWTH AFTER 48 HOURS 07/07/21 02:15 Blood Blood Culture - Preliminary NO GROWTH AFTER 48 HOURS Narrative: Uncomfortable with movement. Lungs clear. Adomen soft. No focal neuro deficit. Assessment and Plan (1) Discitis of lumbosacral region Status: Acute Category: Medical Code(s): M46.47 - Discitis, unspecified, lumbosacral region (2) Phlegmon Status: Acute Category: Medical Code(s): L02.91 - Cutaneous abscess, unspecified (3) IV drug abuse Status: Acute Category: Social Hx Code(s): F19.10 - Other psychoactive substance abuse, uncomplicated - Assessment and plan all Dx Assessment and Plan for all problems:: Continue per orders pending bed availability for transfer.
--- NOTE | 2021-07-10 22:13 | HMH.DCSUM ---
General - General Admission date:: 07/07/21 <Ken Eldridge - 07/17/21 22:58> 07/07/21 <Christina Teresa - 07/10/21 22:20> Discharge date: 07/09/21 <Christina Teresa - 07/10/21 22:20> HPI HPI: Ms. Grimaldo is a 45-year-old female who arrived to the ER today in police custody for medical clearance to be taken to [facility]. She apparently had a warrant out for her arrest. She reported to the ER physician that she had a spinal infection and was seen in emergency room 2 weeks ago. She states they wanted to admit her, but she left AMA prior to treatment. She is a patient of Dr. Ahn. She has not had any follow-up since her ER visit. She is complaining of excruciating pain in her low back that radiates down her legs. She does have a history of IV drug use. She was evaluated in the emergency room and had a CT of her entire spine. The cervical and thoracic CT's were normal. The lumbar CT showed L5-S1 disc space narrowing, endplate erosions and irregularity, slightly increased from previous study most compatible with discitis and spondylitis. There was abnormal heterogenous soft tissue material surrounding the L5-S1 disc space. There was also abnormal ill-defined soft tissue within the posterior pelvis likely phlegmon related to ongoing L5-S1 discitis. The ER physician tried to get her transferred and there were no beds. She is on a wait list at and [facility]. <Christina Teresa - 07/10/21 22:20> Hospital Course Hospital Course: Patient was admitted and started on IV antibiotics. She was comfortable as long as she did not move. Her pain was localized to the lower back that radiated down both legs. She denied any weakness of her legs, bowel or bladder dysfunction, or saddle paresthesias. She was kept for close neurologic monitoring and was awaiting transfer to either or [facility]. She was able to rest at intervals and did eat. She was started on Toradol and morphine for pain. She was able to get up to the bathroom when on pain medication. Her blood culture showed no growth. Apparently on 07/09/2021, the patient left AGAINST MEDICAL ADVICE. <Christina Teresa 07/10/21 22:20> Objective Vital signs: Temp Pulse Resp BP Pulse Ox 98.7 F 97 H 20 149/78 H 99 07/09/21 08:00 07/09/21 08:00 07/09/21 08:00 07/09/21 08:00 07/09/21 08:00 <Ken Eldridge - 07/17/21 22:58> Temp Pulse Resp BP Pulse Ox 98.7 F 97 H 20 149/78 H 99 07/09/21 08:00 07/09/21 08:00 07/09/21 08:00 07/09/21 08:00 07/09/21 08:00 <Christina Teresa 07/10/21 22:20> Narrative: Uncomfortable with movement. Lungs clear. Adomen soft. No focal neuro deficit. <Christina Teresa 07/10/21 22:20> Results Labs on day of discharge: Preliminary micro results at discharge 07/07/21 02:15 Blood Culture - Preliminary Blood NO GROWTH AFTER 48 HOURS 07/07/21 02:15 Blood Culture - Preliminary Blood NO GROWTH AFTER 48 HOURS <Christina Teresa 07/10/21 22:20> DS: Diagnosis - Discharge Diagnosis (1) Discitis of lumbosacral region Status: Acute (2) Phlegmon Status: Acute (3) IV drug abuse Status: Acute <Christina Teresa 07/10/21 22:13> (1) Discitis of lumbosacral region Status: Acute (2) Phlegmon Status: Acute (3) IV drug abuse Status: Acute <Ken Eldridge 07/17/21 22:58> Discharge Plan - Follow up Plan Disposition: Left Against Medical Advice <Ken Eldridge 07/17/21 22:58> Condition at discharge:: Deteriorating <Christina Teresa 07/10/21 22:20> Home Medications: Home Medications Medication Instructions Recorded Confirmed Type No Known Home Medications 07/07/21 07/07/21 History <Kne Eldridge 07/17/21 22:58> Prescriptions/Medication Reconciliation: No Action No Known Home Medications <Ken Eldridge 04/25/22 22:58> - Problem Reconciliation Problems Reviewed?:
[2021-07-20 13:30] LABS: Amphetamine Positive (.); Amphetamine (GC/MS) 1078 ng/mL (Cutoff=500); Amphetamines Positive (.); Methamphetamine Positive (.); Methamphetamine (GC/MS) 5834 ng/mL (Cutoff=500)
== END 2021-07-09 14:20 | disposition left against medical advice (07) | DRG 552 ==
LOC: ER 06:44 → 2ND 10:42
PROVIDERS: Emergency Medicine; Admitting Provider Family Medicine; Emergency Provider Emergency Medicine; PCP Family Medicine; Visit Provider Family Medicine
DX: M46.46 Discitis, unspecified, lumbar region (principal); M46.26 Osteomyelitis of vertebra, lumbar region; Z20.822 Contact with and (suspected) exposure to COVID-19; F19.10 Other psychoactive substance abuse, uncomplicated; F17.210 Nicotine dependence, cigarettes, uncomplicated
CPT/HCPCS: 36415; 71046; 72126; 72129; 72132; 74177; 80048; 80053; 80202; 80305; 80324; 81001; 82150; 83605; 83690; 84145; 85025; 85651; 86140; 87040; 96365; 96367; 96375; 96376; 99291; C9803; Q9967; U0003; U0005

== ENCOUNTER 2024-07-31 10:02 | Outpatient (CLI) | payer OTHER, SELFPAY ==
--- NOTE | 2024-07-31 10:04 | US_ITS ---
FINAL REPORT TECHNIQUE: Sonographic images of the right upper quadrant were obtained. CLINICAL HISTORY: ABNORMAL LIVER ENZYMES COMPARISON: None FINDINGS: PANCREAS: Unremarkable. LIVER: Homogeneous. No focal hepatic lesion. No intrahepatic biliary ductal dilatation. The portal vein is patent with normal directional flow. GALLBLADDER: The gallbladder is surgically absent. COMMON DUCT: 11 mm, which is dilated. RIGHT KIDNEY: The right kidney measures 10.0 cm. There is no hydronephrosis, mass, or stone. FREE FLUID: None. IMPRESSION: Common duct dilatation could be related to cholecystectomy. If indicated, consider MRCP. Reviewed, Interpreted and Dictated by Sofy Marie MD Transcribed by Tanisha Farris Authenticated and [facility]
== END 2024-07-31 23:59 | disposition home or self-care (01) ==
LOC: RAD 10:02
PROVIDERS: PCP Family Medicine; Visit Provider Nurse Practitioner
DX: K83.8 Other specified diseases of biliary tract (principal); Z90.49 Acquired absence of other specified parts of digestive tract
CPT/HCPCS: 76705

== ENCOUNTER 2024-10-02 09:57 | Outpatient (CLI) | payer OTHER, SELFPAY ==
--- OUTSIDE RECORDS SUMMARY | 2024-08-11 13:45 | XMS_ITS | Encounter Summary ---
Author Organization [facility] Address [address] [place] [address] Care Team Providers Care Manager Of Security Name Role Phone Eran Fernandakarishma Ross APRN Primary Care Provider [phone]- [phone] Reason for Referral * Imaging (Routine) - Pending Review Specialty Diagnoses / Procedures Referred By Contac t Referred To Contact Radiology Diagnoses Anal cancer (CMS/HCC) Procedures MR Pelvis w and wo IV Contrast Viral Skaggs MD [address] [address] Phone: tel: fax: Referral ID Status Reason Start Date Expiration Date V isits Requested Visits Authorized [id number] Pending Review 08/11/2024 02/10/2026 1 1 * Imaging (Routine) - Authorized Specialty Diagnoses / Procedures Referred By Contac t Referred To Contact Radiology Diagnoses Anal cancer (CMS/HCC) Procedures CT Abdomen Pelvis w IV Contrast Viral Skaggs MD [id number] [place] [address] Phone: tel: fax: Referral ID Status Reason Start Date Expiration Date V isits Requested Visits Authorized [id number] Authorized 08/11/2024 02/10/2026 1 1 * Imaging (Routine) - Authorized Specialty Diagnoses / Procedures Referred By Susana barrientos Referred To Contact Radiology Diagnoses Anal cancer (CMS/HCC) Tobacco use Pulmonary nodule Procedures CT Chest w IV Contrast Viral Skaggs MD [address] [address] Phone: tel: fax: Referral ID Status Reason Start Date Expiration Date V isits Requested Visits Authorized [id number] Authorized 08/11/2024 02/10/2026 1 1 Reason for Visit * Reason Comments Consult h/o anal cancer Encounter Details Date Type Department Care Team (Latest Contact Info) Description 08/11/2024 1:45 PM EDT Office Visit [facility] Mult[facility] On[facility] [address] [place] [address] Viral Skaggs MD [address] [address] Anal cancer (CMS/HCC) (Primary Dx); Tobacco use; Pulmonary nodule Social History Tobacco Use Types Packs/Day Years Used Date Smoking Tobacco: Every Day Cigarettes 1 28 Smokeless Tobacco: Never Tobacco Cessation:Ready to Q uit: Not Asked; Counseling Given: Not Answered Alcohol Use Standard Drinks/Week Comments Never 0 (1 standard drink = 0.6 oz pur e alcohol) Comments Unknown Sex and Gender Information Value Date Recorded Sex Assigned at Not on file Legal Sex Female 7:33 PM EDT Gender Identity Not on file Sexual Orientation Not on file documented as of this encounter Last Filed Vital Signs Vital Sign Reading Time Taken Comments Blood Pressure 111/72 08/11/2024 1:59 PM EDT Pulse 64 08/11/2024 1:59 PM EDT Temperature 36.8 C (98.3 F) 08/11/2024 1:59 PM EDT Respiratory Rate - - Oxygen Saturation 98% 08/11/2024 1:59 PM EDT Inhaled Oxygen Concentration - - Weight 77.6 kg (171 lb) 08/11/2024 1:59 PM EDT Height 157.5 cm (5' 2 ) 08/11/2024 1:59 PM EDT Body Mass Index 31.28 08/11/2024 1:59 PM EDT documented in this encounter Miscellaneous Notes * Progress Notes - Christine Palomino MD - 08/11/2024 1:45 PM EDTAssociated Order(s): Anoscopy Post-Procedure Diagnose(s): Anal cancer (CMS/HCC) [facility] 08/11/2024 Chief Complaint: Anal cancer (CMS/HCC) [C21.0] HPI: Maria C Grimaldo is a 48 y.o. female who presents to [facility] care for history of anal squamous cell carcinoma as she has newly moved back to [place]. To review her history: Anal SCC Dx December 2022 staged as IIA (T2 N0 M0); treated with concurrent chemoradiation with mitomycin and infusional 5-FU at [facility] which she completed 03/26/[address] Christine Cuellar 03/13/24 due to findings of anal fissure and scar; path: anterior anal skin tag with mild scarring, hyperplastic epithelium with no evidence of dysplasia Repeat EUA with Dr. Trice Mckeon CRS on 05/06/24 due to persistence of changes on exam; path: right anterior perianal skin Bx with area of high-grade squamous intraepithelial lesion, no invasive carcinoma; perineal body and left perineal skin biopsies negative Saw Dr. Trice Roque with [facility] on 06/10/24, anoscopy exam in office at that time showed no evidence of disease, resolution of previous Bx site showing HSIL Repeat surveillance scans last obtained in September 2023, chronic small pulm nodules unchanged from prior; of note she is a chronic smoker, 1/2 ppd now, used to smoke 2 ppd x 30 years; PET CT Jan 2023 without evidence of metastatic disease Today she reports feeling relatively ill as she believes she is dealing with a kidney stone with passage of clots through her urethra and painful urination over the last 1-2 weeks as well as intermittent lower back pain. She otherwise reports that her BM are regular apart from very occasional constipation. She has good bowel function with no incontinence, no pain with defecation. She reports no perianal symptoms or notable lesions. No unintentional weight loss. She last had a surveillance colonoscopy approx 1-2 years ago, does not recall any abnormalities. Of note she is also actively being worked up for/treated for active Hep C with newfound elevated LFTs and inflammation of her bile ducts identified on US for which she is referred to an OSH surgeon for further work-up. The patient is seeing us today in consultation for the treatment of Anal cancer (CMS/HCC) [C21.0]. This consult was requested by Trice Roque MD . ROS: A complete 14 point review of systems was done with the patient. These are all negative with the exception of what is noted in the HPI. Past Medical History: has a past medical history of Anxiety, Ovarian cancer (CMS/HCC) (2003), Restless leg syndrome, and Vulvar cancer (CMS/HCC) (2008). 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 Lap cholecyst[facility] at [facility] [phone] Lumbar spine fusion of L5-S1 2004 in [place] Family History: Family history is unknown by patient. No history of colorectal neoplasms. No history of IBD. History on file reviewed and it is otherwise noncontributory. Social History: Social History[1] Physical Exam: Vitals: 08/11/24 1359 BP: 111/72 Pulse: 64 Temp: 36.8 ??C (98.3 ??F) SpO2: 98% Body mass index is 31.28 kg/m??. GEN: NAD HEENT: NCAT, EOMI RESP: Equal bilateral chest rise, normal work of breathing CV: RRR, appears well perfused ABD: Soft, nontender, nondistended EXT: No gross deformities MSK: Full ROM in BL UE NEURO: No focal deficits, AOx3 PSYCH: Normal mood and affect PERIANAL/PERINEUM: Small anal skin tag in posterior position. ADITYA: Normal tone, no palpable lesions. Anoscopy Performed by: Christine Palomino MD Authorized by: Viral Skaggs MD Consent: Consent obtained: Verbal Consent given by: Patient [place] protocol: Was an attending physician present for this procedure?: yes Comments: Diagnostic Anoscopy. Indication: anal SCC surveillance Risks, benefits and alternatives were discussed and the patient agreed to the procedure. Procedure Note: With a lubricated, gloved index finger, I gently performed a 360 degree sweep of the rectum checking for anal sphincter tone, tenderness, nodules, and masses. *Following gentle dilation with a digital rectal exam, I inserted the lubricated anoscope with the obturator completely inserted. The obturator was removed after fully inserting the anoscope. The anoscope was slowly withdrawn, and the rectal and anal mucosa examined over 360 degrees. Findings: Posterior skin tag as above. No other perianal lesions or lesions noted in the anal canal. Complications: None Patient tolerated the procedure well. Attending Attestation: I was present and participated throughout the above- described procedure. Viral Skaggs MD LABORATORIES AND IMAGING STUDIES: No recent studies available for review. Patient's September 2023 CT A/P was reviewed without clear metastatic disease - report of stable small indeterminate pulmonary nodules. Assessment/Plan Problem List Items Addressed This Visit Digestive Anal cancer (CMS/HCC) - Primary Relevant Orders CT Chest w IV Contrast CT Abdomen Pelvis w IV Contrast MR Pelvis w and wo IV Contrast Anoscopy (Completed) Other Tobacco use (Chronic) Relevant Orders CT Chest w IV Contrast Other Visit Diagnoses Pulmonary nodule Relevant Medications albuterol 108 (90 Base) MCG/ACT inhaler Other Relevant Orders CT Chest w IV Contrast H/o anal SCC sp chemoRT with no current evidence of recurrent disease. HSIL on EUA/Bx earlier this year. Will see her back in 6 months with MR pelvis and repeat anoscopy at that time. Will obtain repeat surveillance CT scans in September, one year from prior. We will work to obtain her prior colonoscopy records and ensure surveillance remains up to date. Christine Palomino MD [1] Social History Tobacco Use Smoking status: Every Day Current packs/day: 1.00 Average packs/day: 1 pack/day for 28.0 years (28.0 ttl pk-yrs) Types: Cigarettes Smokeless tobacco: Never Substance Use Topics Alcohol use: Never Drug use: Yes Types: Fentanyl, Methamphetamines, Heroin Cosigned by Viral Skaggs MD at 08/21/2024 9:25 AM EDT Associated attestation - Viral Skaggs MD - 08/21/2024 9:25 AM EDT I saw and evaluated the patient with the resident/fellow. I discussed the case with the resident/fellow and agree with the findings and plan as documented. documented in this encounter Plan of Treatment Upcoming Encounters Date Type Department Care Team (Late st Contact Info) Description 10/06/2024 1:40 PM EDT Appointment [facility] CT [address] [place] [address] 02/16/2025 11:00 AM EST Appointment [facility] Radiology [address] [place] [address] 02/16/2025 2:30 PM EST Office Visit [facility] Mult[facility]isciplinary Oncology Clinic [address] [place] [address] Viral Skaggs MD [address] [place] [address] Scheduled Orders Name Type Priority Associated Diagnoses Orde r Schedule CT Chest w IV Contrast Imaging Routine Anal cancer (CMS/HCC) Tobacco use Pulmonary nodule Expected: 10/06/2024 (Approximate), Expires: 02/11/2026 CT Abdomen Pelvis w IV Contrast Imaging Routine Anal cancer (CMS/HCC) Expected: 10/06/2024 (Approximate), Expires: 02/11/2026 MR Pelvis w and wo IV Contrast Imaging Routine Anal cancer (CMS/HCC) Expected: 02/16/2025, Expires: 02/11/2026 documented as of this encounter Procedures Procedure Name Priority Date/Time Associated Diagnosis Comments HC ANOSCOPY DX W/COLLJ SPEC BR/WA SPX WHEN PRFRMD Routine 08/11/2024 1:45 PM EDT Anal cancer (CMS/HCC) TN ANOSCOPY DX W/COLLJ SPEC BR/WA SPX WHEN PRFRMD Routine 08/11/2024 1:45 PM EDT Anal cancer (CMS/HCC) documented in this encounter Results * TN ANOSCOPY DX W/COLLJ SPEC BR/WA SPX WHEN PRFRMD, HC ANOSCOPY DX W/COLLJ SPEC BR/WA SPX WHEN PRFRMD (08/11/2024 1:45 PM EDT) Narrative Viral Skaggs MD - 08/11/2024 1:45 PM EDT Viral Skaggs MD 08/21/2024 9:25 AM Anoscopy Performed by: Christine Palomino MD Authorized by: Viral Skaggs MD Consent: Consent obtained: Verbal Consent given by: Patient [place] protocol: Was an attending physician present for this procedure?: yes Comments: Diagnostic Anoscopy. Indication: anal SCC surveillance Risks, benefits and alternatives were discussed and the patient agreed to the procedure. Procedure Note: With a lubricated, gloved index finger, I gently performed a 360 degree sweep of the rectum checking for anal sphincter tone, tenderness, nodules, and masses. *Following gentle dilation with a digital rectal exam, I inserted the lubricated anoscope with the obturator completely inserted. The obturator was removed after fully inserting the anoscope. The anoscope was slowly withdrawn, and the rectal and anal mucosa examined over 360 degrees. Findings: Posterior skin tag as above. No other perianal lesions or lesions noted in the anal canal. Complications: None Patient tolerated the procedure well. us Viral Skaggs MD IN CLINIC/BEDSIDE ORDERABLES F inal Result documented in this encounter Visit Diagnoses Diagnosis Anal cancer (CMS/HCC)- Primary Malignant neoplasm of anus, unspecified site Tobacco use Pulmonary nodule Other diseases of lung, not elsewhere classified documented in this encounter Additional Health Concerns Assessment Noted Time A fall risk assessment has been complete d for the patient 08/11/2024 2:03 PM EDT A Body Mass Index follow-up plan has been documented for the patient 08/21/2024 9:25 AM EDT documented as of this encounter Care Teams Manager Of Security Relationship Specialty Start Date End Date Fernanda Barillas APRN [address] [place] [address] PCP - General 08/05/20 documented as of this encounter
--- NOTE | 2024-10-02 09:45 | MR_ITS ---
FINAL REPORT CLINICAL HISTORY: Right sided abdominal pain/dilated bile duct ENLARGED BILE DUCT RIGHT SIDED ABDOMINAL PAIN GALLBLADDER REMOVED COMPARISON: None FINDINGS: Multiplanar MR imaging of the abdomen was performed without contrast. Images of the liver reveal no evidence of mass. There is mild extrahepatic biliary ductal dilatation measuring up to 10 mm in size, likely secondary to post cholecystectomy change. The gallbladder has been surgically resected, and there is no evidence of choledocholithiasis. The pancreatic duct is normal. Small bilateral renal cysts are present. The remaining solid organs are unremarkable. There is no evidence of adenopathy or ascites. IMPRESSION: Prior cholecystectomy. Mild extrahepatic biliary ductal dilatation is present measuring up to 10 mm, likely secondary to post cholecystectomy change. Reviewed, Interpreted and Dictated by Dawna Simmons MD Transcribed by Gail Velasquez Authenticated and [facility]
--- OUTSIDE RECORDS SUMMARY | 2024-10-02 09:59 | XMS_ITS | Encounter Summary ---
Author Organization [facility] Address [address] [place] [place] [address] Care Team Providers Care Glue Jointer Feeder Name Role Phone Fernanda Barillas BRYANT Primary Care Provider +1- [phone] Encounter Details Date Type Department Care Team (Late Contact Info) Description 01/09/2023 Orders Only External Location [address] [place] [phone] Provider, External Social History Tobacco Use Types Packs/Day Years Used Date Smoking Tobacco: Every Day Cigarettes 1 28 Smokeless Tobacco: Never Alcohol Use Standard Drinks/Week Comments Never 0 (1 standard drink = 0.6 oz pur e alcohol) Comments Unknown Sex and Gender Information Value Date Recorded Sex Assigned at Not on file Legal Sex Female 7:33 PM EDT Gender Identity Not on file Sexual Orientation Not on file documented as of this encounter Plan of Treatment Upcoming Encounters Date Type Department Care Team ([facility] Contact Info) Description 10/06/2024 1:40 PM EDT Appointment [facility] CT [address] [place] [address] 02/16/2025 11:00 AM EST Appointment [facility] Radiology [address] [place] [address] 02/16/2025 2:30 PM EST Office Visit [facility] Multidisciplinary Oncology Clinic [address] [place] [phone] Viral Skaggs MD [address] [place] [address] documented as of this encounter Procedures Procedure Name Priority Date/Time Associated Diagnosis Comments CT THORACIC OUTSIDE IMAGES 01/09/2023 1:49 PM EDT documented in this encounter Results * CT THORACIC OUTSIDE IMAGES (01/09/2023 1:49 PM EDT) Anatomical Region Laterality Modality Computed Tomogra phy 01/09/2023 1:49 PM EDT us External Provider IMG CT PROCEDURES Final Result documented in this encounter Visit Diagnoses Not on filedocumented in this encounter Care Teams Glue Jointer Feeder Relationship Specialty Start Date End Date Fernanda Barillas APRN [address] [place] [address] PCP - General 08/05/20 documented as of this encounter
--- OUTSIDE RECORDS SUMMARY | 2024-10-02 09:59 | XMS_ITS | Encounter Summary ---
Author Organization [facility] Address [address] [place] [address] Care Team Providers Care Java Web Developer Name Role Phone Fernanda Barillas BRYANT Primary Care Provider +1- [phone] Encounter Details Date Type Department Care Team (Late Contact Info) Description 11/01/2022 Orders Only External Location [address] [place] [phone] Provider, External Social History Tobacco Use Types [...] Upcoming Encounters Date Type Department Care Team ([facility] Contact Info) Description 10/06/2024 1:40 PM EDT Appointment [facility] CT [address] [place] [address] 02/16/2025 11:00 AM EST Appointment [facility] Radiology [address] [place] [address] 02/16/2025 2:30 PM EST Office Visit [facility] Multidisciplinary Oncology Clinic [address] [place] [id number] Viral Skaggs MD [address] [place] [address] documented as of this encounter Procedures Procedure Name Priority Date/Time Associated Diagnosis Comments CT MSK OUTSIDE IMAGES 11/01/2022 12:45 PM EDT documented in this encounter Results * CT MSK OUTSIDE IMAGES (11/01/2022 12:45 PM EDT) Anatomical Region Laterality Modality Computed Tomogra phy 11/01/2022 12:4 5 PM EDT us External Provider IMG CT PROCEDURES Final Result documented in this encounter Visit Diagnoses Not on filedocumented in this encounter Care Teams Java Web Developer Relationship Specialty Start Date End Date Fernanda Barillas APRN [facility] [place] [address] PCP - General 08/05/20 documented as of this encounter
--- OUTSIDE RECORDS SUMMARY | 2024-10-02 09:59 | XMS_ITS | Encounter Summary ---
Author Organization [facility] Address [address] [place] [address] Care Team Providers Care Acid Tank Liner Name Role Phone Fernanda Barillas BRYANT Primary Care Provider +1- [phone] Encounter Details Date Type Department Care Team (Late st Contact Info) Description 08/06/2024 Lab Requisition [facility] [address] [place] [address] Viral Skaggs MD [address] [place] [address] Unspecified malignant neoplasm of skin, unspecified Social History Tobacco Use Types Packs/Day Years [...] Info) Description 10/06/2024 1:40 PM EDT Appointment [facility] CT [address] [place] [address] 02/16/2025 11:00 AM EST Appointment [facility] Radiology [address]st [place] [address] 02/16/2025 2:30 PM EST Office Visit [facility] Multidisciplinary Oncology Clinic [address] [place] [address] Viral Skaggs MD [address] [place] [address] documented as of this encounter Procedures Procedure Name Priority Date/Time Associated Diagnosis Comments SURGICAL PATHOLOGY CONSULT Routine 08/06/2024 12:31 PM EDT Unspecified malignant neoplasm of skin, unspecified documented in this encounter Results * Surgical Pathology Consult (08/06/2024 12:31 PM EDT) Case Report Sugical Pathology Consult Case: [id number] Authorizing Provider: Viral Skaggs MD Collected: 08/06/2024 1231 Ordering Location: [facility] Lab Received: 08/06/2024 1231 Pathologist: Maritza Reynoso MD Specimen: Skin, [id number] 08/07/2024 9:53 AM EDT [facility] Final Diagnosis RIGHT ANTERIOR PERIANAL SKIN, BIOPSY ([id number]; 03/13/2024): - AN AREA OF HIGH-GRADE SQUAMOUS INTRAEPITHELIAL LESION IDENTIFIED. - NEGATIVE FOR INVASIVE CARCINOMA. PERINEAL BODY SKIN, BIOPSY ([id number]; 03/13/2024): - NEGATIVE FOR HIGH-GRADE SQUAMOUS INTRAEPITHELIAL LESION. LEFT PERINEAL SKIN, BIOPSY ([id number]; 03/13/2024): - NEGATIVE FOR HIGH-GRADE SQUAMOUS INTRAEPITHELIAL LESION. 08/07/2024 9:53 AM EDT [facility] at 0953 EDT Clinical Information C44.90 - Unspecified malignant neoplasm of skin, unspecified [ICD-10-CM] 08/07/2024 9:53 AM EDT [facility] Gross Description A. [id number] Received along with a corresponding pathology report from [facility] are 15 slide(s) labeled outside case: [id number] collected on 03/13/2024. 08/07/2024 9:53 AM EDT [facility] Note: A resident was involved in the service. I attest I examined the relevant preparations for the specimens and confirmed the diagnosis or interpretation. 08/07/2024 9:53 AM EDT [facility] Tissue Skin structure / Unknown 08/06/2024 12:31 PM EDT 08/06/2024 12:31 PM EDT us Viral Skaggs MD LAB PATHOLOGY ORDERABLES Final Result [facility] [address] [place] [address] documented in this encounter Visit Diagnoses Diagnosis Unspecified malignant neoplasm of skin, unspecified documented in this encounter Care Teams Acid Tank Liner Relationship Specialty Start Date End Date Fernanda Barillas APRN [address] [place] [address] PCP - General 08/05/20 documented as of this encounter
--- OUTSIDE RECORDS SUMMARY | 2024-10-02 09:59 | XMS_ITS | Encounter Summary ---
Author Organization [facility] Address [address] [place] [address] Care Team Providers Care Jute Bag Cutting Machine Operator Name Role Phone Fernanda Barillas BRYANT Primary Care Provider +1- [phone] Encounter Details Date Type Department Care Team (Late Contact Info) Description 10/03/2023 Orders Only External Location [address] [place] [address] Provider, External Social History Tobacco Use Types [...] Upcoming Encounters Date Type Department Care Team ([facility] Contact Info) Description 10/06/2024 1:40 PM EDT Appointment [facility] CT [address] [place] [address] 02/16/2025 11:00 AM EST Appointment [facility] Radiology [address] 1st [place] [address] 02/16/2025 2:30 PM EST Office Visit [facility] Multidisciplinary Oncology Clinic [address] [place] [address] Viral Skaggs MD [address] [place] [address] documented as of this encounter Procedures Procedure Name Priority Date/Time Associated Diagnosis Comments CT ABDOMEN OUTSIDE IMAGES 10/03/2023 8:20 AM EDT documented in this encounter Results * CT ABDOMEN OUTSIDE IMAGES (10/03/2023 8:20 AM EDT) Anatomical Region Laterality Modality Computed Tomogra phy 10/03/2023 8:2 0 AM EDT us External Provider IMG CT PROCEDURES Final Result documented in this encounter Visit Diagnoses Not on filedocumented in this encounter Care Teams Jute Bag Cutting Machine Operator Relationship Specialty Start Date End Date Fernanda Barillas APRN [address] [place] [address] PCP - General 08/05/20 documented as of this encounter
--- OUTSIDE RECORDS SUMMARY | 2024-10-02 09:59 | XMS_ITS | Encounter Summary ---
Author Organization [facility] Address [address] [place] [address] Care Team Providers Care Machine Coil Assembler Name Role Phone Fernanda Barillas APRN Primary Care Provider +1- [phone] Sherron Duckworth FILM TOUCH UP INSPECTOR Unavailable Unavailable Encounter Details Date Type Department Care Team (Late st Contact Info) Description 11/01/2008 Orders Only External Location [address] [place] [address] Provider, External Social History Tobacco Use Types Packs/Day Years Used Date Smoking Tobacco: Never Assessed Comments Unknown Sex and Gender Information Value Date Recorded Sex Assigned at Not on file Legal Sex Female 7:33 PM EDT Gender Identity Not on file Sexual Orientation Not on file documented as of this encounter Plan of Treatment Upcoming Encounters Date Type Department Care Team (Late st Contact Info) Description 10/06/2024 1:40 PM EDT Appointment [facility] CT [address] [place] [address] 02/16/2025 11:00 AM EST Appointment [facility] Radiology [address] [place] [address] 02/16/2025 2:30 PM EST Office Visit [facility] Multidisciplinary Oncology Clinic [address] [place] [address] Viral Skaggs MD [address] [place] [address] documented as of this encounter Procedures Procedure Name Priority Date/Time Associated Diagnosis Comments XR OUTSIDE IMAGES 11/01/2008 12:38 PM EDT documented in this encounter Results * XR OUTSIDE IMAGES (11/01/2008 12:38 PM EDT) Anatomical Region Laterality Modality Radiographic Lexie ging 11/01/2008 12:3 8 PM EDT us External Provider IMG XR PROCEDURES Final Result documented in this encounter Visit Diagnoses Not on filedocumented in this encounter Care Teams Machine Coil Assembler Relationship Specialty Start Date End Date Fernanda Barillas, BRYANT [address] [place] [address] PCP - General 08/05/20 Sherron Duckworth, FILM TOUCH [place] [address] Glass Vial Bending Conveyor Feeder Sinter Press Operator 06/20/21 06/20/21 documented as of this encounter
--- OUTSIDE RECORDS SUMMARY | 2024-10-02 09:59 | XMS_ITS | Encounter Summary ---
Author Organization [facility] Address [address] [place] [address] Care Team Providers Care Director Of Manufacturing Name Role Phone Fernanda Barillas BRYANT Primary Care Provider +1- [phone] Encounter Details Date Type Department Care Team (Late st Contact Info) Description 08/12/2024 Lab Requisition [facility] [address] [place] [address] Viral Skaggs MD [address] [place] [address] Polyp of colon Social History Tobacco Use Types Packs/Day Years [...] Encounters Date Type Department Care Team (Late Contact Info) Description 10/06/2024 1:40 PM EDT Appointment [facility] CT [address] [place] [address] 02/16/2025 11:00 AM EST Appointment [facility] Radiology [address] [place] [address] 02/16/2025 2:30 PM EST Office Visit [facility] Oncology Clinic [address] [place] [address] Viral Skaggs MD [address] [place] [address] documented as of this encounter Procedures Procedure Name Priority Date/Time Associated Diagnosis Comments SURGICAL PATHOLOGY CONSULT Routine 08/12/2024 2:09 PM EDT Polyp of colon documented in this encounter Results * Surgical Pathology Consult (08/12/2024 2:09 PM EDT) Case Report Sugical Pathology Consult Case: [id number] Authorizing Provider: Viral Skaggs MD Collected: 08/12/2024 1409 Ordering Location: [facility] Lab Received: 08/12/2024 1409 Pathologist: Clark Cornejo MD Specimen: Colon, [id number] 08/14/2024 8:12 AM EDT [facility] Final Diagnosis (OUTSIDE CASE: [id number], COLLECTED ON 12/12/2022): TRANSVERSE COLON, POLYP, BIOPSY (A): - BENIGN LYMPHOID AGGREGATE; NEGATIVE FOR DYSPLASIA PERIANAL MASS, BIOPSY (B): - INVASIVE SQUAMOUS CELL CARCINOMA, VARIABLY KERATINIZING 08/14/2024 8:12 AM EDT [facility] at 0812 EDT Clinical Information K63.5 - Polyp of colon [ICD-10-CM] 08/14/2024 8:12 AM EDT [facility] Gross Description A. [id number] Received along with a corresponding pathology report from [facility] are 7 slide(s) labeled outside case: [id number] collected on 12/12/2022. 08/14/2024 8:12 AM EDT [facility] Tissue Colon structure / Unknown 08/12/2024 2:09 PM EDT 08/12/2024 2:09 PM EDT us Viral Skaggs MD LAB PATHOLOGY ORDERABLES Final Result [facility] [address] [place] [address] documented in this encounter Visit Diagnoses Diagnosis Polyp of colon Benign neoplasm of colon documented in this encounter Additional Health Concerns Assessment Noted Time A fall risk assessment has been complete d for the patient 08/11/2024 2:03 PM EDT A Body Mass Index follow-up plan has been documented for the patient 08/21/2024 9:25 AM EDT documented as of this encounter Care Teams Director Of Manufacturing Relationship Specialty Start Date End Date Fernanda Barillas APRN [address] [place] [address] PCP - General 08/05/20 documented as of this encounter
--- OUTSIDE RECORDS SUMMARY | 2024-10-02 09:59 | XMS_ITS | Encounter Summary ---
Author Organization [facility] Address [address] [place] [address] Care Team Providers Care Brake Reliner Name Role Phone Fernanda Barillas BRYANT Primary Care Provider +1- [phone] Reason for Visit * Reason Comments Distress Screen Follow-up Encounter Details Date Type Department Care Team ([facility] st Contact Info) Description 08/12/2024 Social Work Psych Oncology [address] [place] [address] Lydia Butcher Social History Tobacco Use Types Packs/Day Years [...] on file documented as of this encounter Miscellaneous Notes * Progress Notes - Lydia Butcher - 08/12/2024 2:30 PM EDT Encounter Type: Distress Follow Up - Phone Call Disease Status: Initial Psych Onc Contact Clinic Location: [facility] Disease Type Other: Anal Education Provided: Psych-Onc Services Intervention Level: 2 Units (1 unit = 15 minutes): 1 Narrative: REUSE TECHNICIAN reached out to pt regarding DT screen. Pt stated they are doing fine and have no current needs.Educated pt on psych onc services, such as dietary and emotional services. Provided pt with contactinformation and encouraged pt to reach out to REUSE TECHNICIAN for any future questions or concerns. Pt voiced understanding and appreciation for the assistance. No further needs identified but REUSE TECHNICIAN to remain available ongoing. Lydia Butcher, POSTAL SUPERVISOR, REUSE TECHNICIAN [facility] documented in this encounter Plan of Treatment Upcoming Encounters Date Type Department Care Team (Late st Contact Info) Description 10/06/2024 1:40 PM EDT Appointment [facility] CT [address] [place] [address] 02/16/2025 11:00 AM EST Appointment [facility] [address] [place] [address] 02/16/2025 2:30 PM EST Office Visit [facility] [address] [place] [address] Viral Skaggs MD [address] [place] [address] documented as of this encounter Visit Diagnoses Not on filedocumented in this encounter Additional Health Concerns Assessment Noted Time A fall risk assessment has been complete d for the patient 08/11/2024 2:03 PM EDT A Body Mass Index follow-up plan has been documented for the patient 08/21/2024 9:25 AM EDT documented as of this encounter Care Teams Brake Reliner Relationship Specialty Start Date End Date Fernanda Barillas APRN [address] [place] [address] PCP - General 08/05/20 documented as of this encounter
--- OUTSIDE RECORDS SUMMARY | 2024-10-02 09:59 | XMS_ITS | Clinical Summary ---
Author Organization [facility] Address [address] [place] [address] Care Team Providers Care Barometers Calibrator Name Role Phone Fernanda Barillas BRYANT Primary Care Provider +1- [phone] Allergies No known active allergies Medications albuterol 108 (90 Base) MCG/ACT inhaler Inhale 1 puff every 4 hours. 07/23/2024 Active buprenorphine-n aloxone (Suboxone) 8-[address] 1 tablet under the tongue daily. 08/06/2024 Active Vitamin D3 1.25 MG (04125 UT) capsule Take 1 capsule by mouth 1 time per week. 07/27/2024 Active escitalopram (Lexapro) 20 MG tablet Take 1 tablet by mouth daily. 07/23/2024 Active gabapentin (Neurontin) 400 MG capsule Take 1 capsule by mouth 2 times a day. Active Active Problems Problem Noted Date Diagnosed Date Pulmonary nodule 08/21/2024 Anal cancer 01/14/2023 Osteomyelitis 06/20/2021 Substance use disorder 06/20/2021 Tobacco use 06/20/2021 Encounters Date Type Department Care Team Description 08/12/2024 Social Work Psych Oncology [address] [place] [address] Lydia Butcher 08/12/2024 Lab Requisition [facility] [address] [place] [address] Viral Skaggs MD Polyp of colon 08/11/2024 1:45 PM EDT Office Visit [facility] Multidisciplinary Oncology Clinic [address] [place] [address] Viral Skaggs MD Anal cancer (CMS/HCC) (Primary Dx); Tobacco use; Pulmonary nodule 08/11/2024 Travel 08/06/2024 Lab Requisition [facility] Lab [address] [place] [address] Viral Skaggs MD Unspecified malignant neoplasm of skin, unspecified from Last 3 Months Social History Tobacco Use Types Packs/Day Years [...] on file Sexual Orientation Not on file Last Filed Vital Signs Vital Sign Reading Time Taken Comments Blood Pressure 111/72 08/11/2024 1:59 PM EDT Pulse 64 08/11/2024 1:59 PM EDT Temperature 36.8 C (98.3 F) 08/11/2024 1:59 PM EDT Respiratory Rate 20 07/08/2021 11:15 AM EDT Oxygen Saturation 98% 08/11/2024 1:59 PM EDT Inhaled Oxygen Concentration - - Weight 77.6 kg (171 lb) 08/11/2024 1:59 PM EDT Height 157.5 cm (5' 2 ) 08/11/2024 1:59 PM EDT Body Mass Index 31.28 08/11/2024 1:59 PM EDT Plan of Treatment Upcoming Encounters Date Type Department Care Team (Late st Contact Info) Description 10/06/2024 1:40 PM EDT Appointment [facility] CT [address]nd [place] [address] 02/16/2025 11:00 AM EST Appointment [facility] Radiology [address]st [place] [address] 02/16/2025 2:30 PM EST Office Visit [facility] Multidisciplinary Oncology Clinic [address] [place] [address] Viral Skaggs MD [address] [place] [address] Health Maintenance Due Date Last Done Comments [facility]-Depression Screening 1977 [facility]-Infant/Child/Adol SDOH Screenings 1977 [facility]- SDOH Screenings 11/11/1995 [facility]-Adult SDOH Screenings 11/11/1995 [facility]-Hepatitis B Vaccines (1 of 3 - 19+ 3-dose series) 1996 [facility]-Pneumococcal Vaccine: Pediatrics (0 to 5 Years) and At-Risk Patients (6 to 49 Years) (1 of 2 - PCV) 1996 [facility]-Zoster Vaccines (1 of 2) 1996 CT Colonography 2022 Colonoscopy 2022 FIT-DNA 2022 FIT 2022 FOBT 2022 11/02/2015 Sigmoidoscopy 2022 [facility]-Colorectal Cancer Screening 2022 [facility]-DTaP,Tdap,and Td Vaccine s (2 - Td or Tdap) 05/24/2024 05/24/2014 [id number] Vaccine (3 - 2023- season) 2024 02/13/2024, 08/10/2020 [facility]-Influenza Vaccine (#1) 2024 01/02/2024 [facility]-HIV Screening Completed 06/20/2021 [facility]-Hepatitis C Screening Completed 2021, 06/20/2021 [facility]-Hepatitis A Vaccines Aged Out 09/14/2023 No longer eligible based on patient's age to complete this topic [facility]-Obesity Intervention Completed 08/11/2024 HPV Vaccines Aged Out No longer eligi ble based on patient's age to complete this topic [facility]-HIB Vaccines Aged Out No longer e ligible based on patient's age to complete this topic [facility]-IPV Vaccines Aged Out No longer e ligible based on patient's age to complete this topic [facility]-Rotavirus Vaccines Aged Out No lo nger eligible based on patient's age to complete this topic Procedures Procedure Name Priority Date/Time Associated Diagnosis Comments SURGICAL PATHOLOGY CONSULT Routine 08/12/2024 2:09 PM EDT Polyp of colon HC ANOSCOPY DX W/COLLJ SPEC BR/WA SPX WHEN PRFRMD Routine 08/11/2024 1:45 PM EDT Anal cancer (CMS/HCC) GA ANOSCOPY DX W/COLLJ SPEC BR/WA SPX WHEN PRFRMD Routine 08/11/2024 1:45 PM EDT Anal cancer (CMS/HCC) SURGICAL PATHOLOGY CONSULT Routine 08/06/2024 12:31 PM EDT Unspecified malignant neoplasm of skin, unspecified HEPATITIS C ANTIBODY - ED W/REFLEX TO HCV QUANT PCR STAT 06/20/2021 2:04 PM EDT HIV 1/2 ANTIBODY/ANTIGEN SCREEN WITH REFLEX TO HIV I/II DIFFERENTIATION STAT 06/20/2021 2:04 PM EDT from Last 3 Months or Most Recently Relevant to Health Maintenance Results * Surgical Pathology Consult (08/12/2024 2:09 PM EDT) Only the most recent of2 resultswithin the time period is included. Case Report Sugical Pathology Consult Case: [id number] Authorizing Provider: Viral Skaggs MD Collected: 08/12/2024 1409 Ordering Location: [facility] Lab Received: 08/12/2024 1409 Pathologist: Clark Cornejo MD Specimen: Colon, [id number] 08/14/2024 8:12 AM EDT [facility] Final Diagnosis (OUTSIDE CASE: [id number], COLLECTED ON 12/12/2022): TRANSVERSE COLON, POLYP, BIOPSY (A): - BENIGN LYMPHOID AGGREGATE; NEGATIVE FOR DYSPLASIA PERIANAL MASS, BIOPSY (B): - INVASIVE SQUAMOUS CELL CARCINOMA, VARIABLY KERATINIZING 08/14/2024 8:12 AM EDT [facility] at 0812 EDT Clinical Information K63.5 - Polyp of colon [ICD-10-CM] 08/14/2024 8:12 AM EDT [facility] Gross Description A. [id number] Received along with a corresponding pathology report from [facility] are 7 slide(s) labeled outside case: [id number] collected on 12/12/2022. 08/14/2024 8:12 AM EDT [facility] Tissue Colon structure / Unknown 08/12/2024 2:09 PM EDT 08/12/2024 2:09 PM EDT us Viral Skaggs MD LAB PATHOLOGY ORDERABLES Final Result [facility] [address] [place] [address] * GA ANOSCOPY DX W/COLLJ SPEC BR/WA SPX WHEN PRFRMD, HC ANOSCOPY DX W/COLLJ SPEC BR/WA SPX WHEN PRFRMD (08/11/2024 1:45 PM EDT) Narrative Viral Skaggs MD - 08/11/2024 1:45 PM EDT Viral Skaggs MD 08/21/2024 9:25 AM Anoscopy Performed by: Christine Palomino MD Authorized by: Viral Skaggs MD Consent: Consent obtained: Verbal Consent given by: Patient [place] protocol: Was an attending physician present for [...] MD IN CLINIC/BEDSIDE ORDERABLES F inal Result * HIV 1 & 2 Antibody/Antigen Screen (06/20/2021 2:04 PM EDT) HIV 1 & 2 Antibody/Anti gen Screen Nonreactive Nonreactive 06/20/2021 4:07 PM EDT [facility] Blood Venous blood specimen / Unknown Venipuncture / Unknown 06/20/2021 2:04 PM EDT 06/20/2021 2:18 PM EDT us Trice Doe MD LAB BLOOD ORDERABLES Final Res ult Performing Organization Address City/[facility]/ZIP Co de Phone Number [facility] [address] [place] [address] * (ABNORMAL) [place] Hepatitis C Antibody (06/20/2021 2:04 PM EDT) Hepatitis C Antibody Positive( A) Negative 06/20/2021 4:53 PM EDT [facility] Comment:This specimen is angel ng sent for confirmation by RT-PCR. Blood Venous blood specimen / Unknown Venipuncture / Unknown 06/20/2021 2:04 PM EDT 06/20/2021 2:18 PM EDT us Trice Doe MD LAB BLOOD ORDERABLES Final Res ult Performing Organization Address City/[facility]/ZIP Co de Phone Number [facility]ALTHCARE LAB [address] [place] [address] from Last 3 Months or Most Recently Relevant to Health Maintenance Insurance [employer] [facility] MEDICAID Advance Directives * Full Code (Latest Code Status on File) Date Activated Date Inactivated Comments 06/20/2021 4:30 PM 06/21/2021 10:05 PM Question Answer Comments Patient has decision-making capacity? Yes Care Teams Barometers Calibrator Relationship Specialty Start Date End Date Fernanda Barillas APRN [address] [place] [address] PCP - General 08/05/20
--- OUTSIDE RECORDS SUMMARY | 2024-10-02 09:59 | XMS_ITS | Encounter Summary ---
Author Organization [facility] Address [address] [place] [address] Care Team Providers Care Regional Clinical Director Name Role Phone Fernanda Barillas BRYANT Primary Care Provider +1- [phone] Encounter Details Date Type Department Care Team (Late Contact Info) Description 01/28/2023 Orders Only External Location [address] [place] [address] Provider, External Social History Tobacco Use Types [...] Upcoming Encounters Date Type Department Care Team ([facility] Contact Info) Description 10/06/2024 1:40 PM EDT Appointment [facility] CT [address]nd [place] [address] 02/16/2025 11:00 AM EST Appointment [facility] Radiology [address] 1st [place] [address] 02/16/2025 2:30 PM EST Office Visit [facility] Multidisciplinary Oncology Clinic [address] [place] [address] Viral Skaggs MD [address] [place] [address] documented as of this encounter Procedures Procedure Name Priority Date/Time Associated Diagnosis Comments CT [facility] OUTSIDE IMAGES 01/28/2023 8:53 AM EST documented in this encounter Results * CT [facility] OUTSIDE IMAGES (01/28/2023 8:53 AM EST) Anatomical Region Laterality Modality Computed Tomogra phy 01/28/2023 8:53 AM EST us External Provider IMG CT PROCEDURES Final Result documented in this encounter Visit Diagnoses Not on filedocumented in this encounter Care Teams Regional Clinical Director Relationship Specialty Start Date End Date Fernanda Barillas APRN [address] [place] [address] PCP - General 08/05/20 documented as of this encounter
--- OUTSIDE RECORDS SUMMARY | 2024-10-02 09:59 | XMS_ITS | Encounter Summary ---
Author Organization Healthcare Address [address] [place] [address] Care Team Providers Care Desk Monitor Name Role Phone Fernanda Barillas BRYANT Primary Care Provider +1- [phone] Encounter Details Date Type Department Care Team (Late Contact Info) Description 09/04/2023 Orders Only External Location [address] [place] [address] Provider, External Social History Tobacco Use Types [...] Upcoming Encounters Date Type Department Care Team ([facility] Contact Info) Description 10/06/2024 1:40 PM EDT Appointment [facility] CT [address] [place] [address] 02/16/2025 11:00 AM EST Appointment [facility] Radiology [address], 1st [place] [address] 02/16/2025 2:30 PM EST Office Visit [facility] Multidisciplinary Oncology Clinic [address] [place] [address] Viral Skaggs MD [address] [place] [address] documented as of this encounter Procedures Procedure Name Priority Date/Time Associated Diagnosis Comments CT THORACIC OUTSIDE IMAGES 09/04/2023 7:56 AM EDT documented in this encounter Results * CT THORACIC OUTSIDE IMAGES (09/04/2023 7:56 AM EDT) Anatomical Region Laterality Modality Computed Tomogra phy 09/04/2023 7:56 AM EDT us External Provider IMG CT PROCEDURES Final Result documented in this encounter Visit Diagnoses Not on filedocumented in this encounter Care Teams Desk Monitor Relationship Specialty Start Date End Date Fernanda Barillas APRN [address] [place] [address] PCP - General 08/05/20 documented as of this encounter
--- OUTSIDE RECORDS SUMMARY | 2024-10-02 09:59 | XMS_ITS | Encounter Summary ---
Author Organization Healthcare Address [address] [place] [address] Care Team Providers Care Credentialing Manager Name Role Phone Fernanda Barillas BRYANT Primary Care Provider +1- [phone] Encounter Details Date Type Department Care Team (Latest Contact Info) Description 08/11/2024 Travel Social History Tobacco Use Types Packs/Day Years [...] Info) Description 10/06/2024 1:40 PM EDT Appointment [facility] CT [address] [place] [address] 02/16/2025 11:00 AM EST Appointment [facility] Radiology [address], [address] [place] [address] 02/16/2025 2:30 PM EST Office Visit [facility] [address] [place] [address] Viral Skaggs MD [address] [place] [address] documented as of this encounter Visit Diagnoses Not on filedocumented in this encounter Additional Health Concerns Assessment Noted Time A fall risk assessment has been complete d for the patient 08/11/2024 2:03 PM EDT A Body Mass Index follow-up plan has been documented for the patient 08/21/2024 9:25 AM EDT documented as of this encounter Care Teams Credentialing Manager Relationship Specialty Start Date End Date Fernanda Barillas APRN [address] [place] [address] PCP - General 08/05/20 documented as of this encounter
--- OUTSIDE RECORDS SUMMARY | 2024-10-02 10:00 | XMS_ITS | Encounter Summary ---
Author Organization Healthcare Address [address] [place] [address] Care Team Providers Care Conditioner Tumbler Name Role Phone Fernanda Barillas BRYANT Primary Care Provider +1- [phone] Encounter Details Date Type Department Care Team (Late Contact Info) Description 01/09/2023 Orders Only External Location [address] [place] [address] Provider, External Social History Tobacco Use Types [...] Upcoming Encounters Date Type Department Care Team ([facility] Contact Info) Description 10/06/2024 1:40 PM EDT Appointment [facility] CT [address]nd [place] [address] 02/16/2025 11:00 AM EST Appointment [facility] Radiology [address], 1st [place] [address] 02/16/2025 2:30 PM EST Office Visit [facility] Multidisciplinary Oncology Clinic [address] [place] [address] Viral Skaggs MD [address] [place] [address] documented as of this encounter Procedures Procedure [...] on filedocumented in this encounter Care Teams Conditioner Tumbler Relationship Specialty Start Date End Date Fernanda Barillas APRN [address] [place] [address] PCP - General 08/05/20 documented as of this encounter
[2024-10-02 11:03] LABS: Hematocrit 36.8 % (37.0-47.0); Hemoglobin 12.7 g/dL (12.2-16.2); Immature Granulocytes % 0.4 %; Mean Corpuscular HGB Conc 34.5 g/dL (31.8-35.4); Mean Corpuscular Hemoglobin 30.2 pg (27.0-31.2); Mean Corpuscular Volume 87.6 fl (81-99); Nucleated Red Blood Cells % 0 %; Platelet Count 257 K/mm3 (142-424); Red Blood Count 4.20 M/mm3 (4.20-5.40); Red Cell Distribution Width-SD 40.6 fL; White Blood Count 5.0 K/mm3 (4.8-10.8)
[2024-10-02 11:16] LABS: INR 0.96 (0.9-1.1); Prothrombin Time 10.7 seconds (10.1-12.5)
[2024-10-02 11:31] LABS: Alanine Aminotransferase 20 U/L (12-78); Albumin Level 4.3 g/dl (3.5-5.0); Albumin/Globulin Ratio 1.5 (1.1-1.8); Alkaline Phosphatase 133 U/L (38-126); Anion Gap 15.1 mEq/L (5-15); Aspartate Amino Transferase 29 U/L (14-36); Bilirubin,Total 0.4 mg/dl (0.2-1.3); Blood Urea Nitrogen 13 mg/dl (7-17); Calcium 9.7 mg/dl (8.4-10.2); Carbon Dioxide 28 mmol/L (22.0-30.0); Chloride 102 mmol/L (98-107); Creatinine,Serum 0.80 mg/dl (0.52-1.04); Estimated Glomerular Filt Rate 77 ml/min (>60); GFR (African American) 93 ML/MIN (>60); Globulin 2.9 g/dL (1.3-3.2); Glucose 93 mg/dl (74-100); Potassium 4.1 mmoL/L (3.5-5.1); Sodium 141 mmol/L (136-145); Total Protein,Serum 7.2 g/dl (6.3-8.2)
[2024-10-03 06:37] LABS: Hep B Core Ab, Total Positive (Negative); Hepatitis B Surface Antigen Negative (Negative)
[2024-10-06 15:20] LABS: ALT (SGPT) P5P 19 IU/L (0-40); Alpha 2-Macroglobulins, Qn 206 mg/dL (110-276); Bilirubin, Total 0.2 mg/dL (0.0-1.2); GGT 33 IU/L (0-60)
[2024-10-08 11:24] LABS: Hepatitis C Quant. HCV Not Detected IU/mL (.)
[2024-10-09 10:09] LABS: PDF: SCANNED REPORT
== END 2024-10-02 23:59 | disposition home or self-care (01) ==
LOC: RAD 09:57
PROVIDERS: PCP Family Medicine; Visit Provider Nurse Practitioner Family
DX: B19.20 Unspecified viral hepatitis C without hepatic coma (principal); K83.8 Other specified diseases of biliary tract; R10.9 Unspecified abdominal pain; Z90.49 Acquired absence of other specified parts of digestive tract
CPT/HCPCS: 36415; 74181; 76376; 80053; 81596; 82247; 82977; 83521; 84460; 85025; 85610; 86704; 87340; 87522

== ENCOUNTER 2024-11-06 09:50 | Outpatient (CLI) | payer OTHER, SELFPAY ==
--- OUTSIDE RECORDS SUMMARY | 2024-11-06 09:52 | XMS_ITS | Clinical Summary ---
Author Organization [facility] Address [address] [place] [address] Care Team Providers Care Extrusion Die Corrector Name Role Phone Fernanda Barillas Cody HURTADO Primary Care Provider +1- [phone] Allergies No known active allergies Medications albuterol 108 (90 Base) MCG/ACT inhaler Inhale 1 puff every 4 hours. 07/23/2024 Active buprenorphine-n aloxone (Suboxone) 8-[address] 1 tablet under the tongue daily. 08/06/2024 Active Vitamin D3 1.25 MG (28264 UT) capsule Take 1 capsule by mouth [...] Encounters Date Type Department Care Team Description 10/30/2024 Telephone [facility] [address] [place] [address] Viral Skaggs MD 10/05/2024 Travel 08/12/2024 Social Work Psych Oncology [address] [place] [address] Lydia Butcher 08/12/2024 Lab Requisition [facility] [address] [place] [address] Viral Skaggs MD Polyp of colon 08/11/2024 1:45 PM EDT Office Visit [facility] Multidisciplinary Oncology Clinic [address] [place] [address] Viral Skaggs MD Anal cancer (CMS/HCC) (Primary Dx); Tobacco use; Pulmonary nodule 08/11/2024 Travel 08/06/2024 Lab Requisition [facility] Lab [address] [place] [address] Viral Skaggs MD Unspecified malignant neoplasm of [...] Care Team (Late st Contact Info) Description 02/16/2025 11:00 AM EST Appointment [facility] Radiology [address]st [place] [address] 02/16/2025 2:30 PM EST Office Visit [facility] Multidisciplinary Oncology Clinic [address] [place] [address] Viral Skaggs MD [address] [place] [address] Health Maintenance Due Date Last Done Comments [facility]-Depression Screening 1977 [facility]-/Child/Adol SDOH Screenings 1977 [facility]- SDOH Screenings 11/11/1995 [...] (2 - Td or Tdap) 05/24/2024 05/24/2014 [id number] Vaccine (3 - season) 2024 02/13/2024, 08/10/2020 [facility]-Influenza Vaccine (#1) [...] 08/11/2024 1:45 PM EDT Anal cancer (CMS/HCC) [place] ANOSCOPY DX W/COLLJ SPEC BR/WA SPX WHEN [...] included. Case Report Sugical Pathology Consult Case: [id number] Authorizing Provider: Viral Skaggs MD Collected: 08/12/2024 1409 Ordering Location: [facility] Lab Received: 08/12/2024 1409 Pathologist: Clark Cornejo MD Specimen: Colon, [id number] 08/14/2024 8:12 AM EDT [facility] Final Diagnosis (OUTSIDE CASE: [id number], COLLECTED ON 12/12/2022): TRANSVERSE COLON, POLYP, BIOPSY (A): - BENIGN LYMPHOID AGGREGATE; NEGATIVE FOR DYSPLASIA PERIANAL MASS, BIOPSY (B): - INVASIVE SQUAMOUS CELL CARCINOMA, VARIABLY KERATINIZING 08/14/2024 8:12 AM EDT [facility] at 0812 EDT Clinical Information K63.5 - Polyp of colon [ICD-10-CM] 08/14/2024 8:12 AM EDT [facility] Gross Description A. [id number] Received along with a corresponding pathology report from [facility] are 7 slide(s) labeled outside case: [id number] collected on 12/12/2022. 08/14/2024 8:12 AM EDT [facility] Tissue Colon structure / Unknown 08/12/2024 2:09 PM EDT 08/12/2024 2:09 PM EDT us Viral Skaggs MD LAB PATHOLOGY ORDERABLES Final Result [facility] [address] [place] [address] * [place] ANOSCOPY DX W/COLLJ SPEC BR/WA SPX WHEN PRFRMD, HC ANOSCOPY DX W/COLLJ SPEC BR/WA SPX WHEN PRFRMD (08/11/2024 1:45 PM EDT) Narrative Viral Skaggs MD - 08/11/2024 1:45 PM EDT Viral Skaggs MD 08/21/2024 9:25 AM Anoscopy Performed by: Christine Palomino MD Authorized by: Viral Skaggs MD Consent: Consent obtained: Verbal Consent given by: Patient [place] protocol: Was an attending physician present for [...] ORDERABLES Final Res ult Performing Organization Address City/[facility]/ZIP Co de Phone Number HEALTHCARE LAB [address] [place] [address] * (ABNORMAL) [place] Hepatitis C Antibody (06/20/2021 2:04 PM EDT) Pathologist [facility] Hepatitis C Antibody Positive( A) Negative 06/20/2021 4:53 PM EDT [facility] Comment:This specimen is angel ng sent for confirmation by RT-PCR. Blood Venous blood specimen / Unknown Venipuncture / Unknown 06/20/2021 2:04 PM EDT 06/20/2021 2:18 PM EDT us Trice Doe MD LAB BLOOD ORDERABLES Final Res ult Performing Organization Address City/[facility] Co de Phone Number [facility] [address] [place] [address] from Last 3 Months or Most Recently Relevant to Health Maintenance Insurance [employer] [facility] MEDICAID Advance Directives * Full Code (Latest Code Status on File) Date Activated Date Inactivated Comments 06/20/2021 4:30 PM 06/21/2021 10:05 PM Question Answer Comments Patient has decision-making capacity? Yes Care Teams Extrusion Die Corrector Relationship Specialty Start Date End Date Fernanda Barillas APRN [address] [place] [address] PCP - General 08/05/20
--- OUTSIDE RECORDS SUMMARY | 2024-11-06 09:52 | XMS_ITS | Encounter Summary ---
Author Organization Healthcare Address [address] [place] [address] Care Team Providers Care Ed Educational Aide Name Role Phone Barlilas Fernandakarishma Ross APRN Primary Care Provider +1- [phone] Sherron Duckworth OPERATING ROOM SURGICAL TECHNOLOGIST Unavailable Unavailable Encounter Details Date Type Department Care Team (Late st Contact Info) Description 11/01/2008 Orders Only External Location [address] [place] [address] Provider, External Social History Tobacco Use Types [...] Info) Description 02/16/2025 11:00 AM EST Appointment [facility] Radiology [address] 1st [place] [address] 02/16/2025 2:30 PM EST Office Visit [facility] [address] [place] [address] Viral Skaggs MD [address] [place] [address] documented as of this encounter Procedures Procedure Name Priority Date/Time Associated Diagnosis Comments XR OUTSIDE IMAGES 11/01/2008 12:38 PM EDT documented in this encounter Results * XR OUTSIDE IMAGES (11/01/2008 12:38 PM EDT) Anatomical Region Laterality Modality Radiographic Lxeie ging 11/01/2008 12:3 8 PM EDT us External Provider IMG XR PROCEDURES Final Result documented in this encounter Visit Diagnoses Not on filedocumented in this encounter Care Teams Ed Educational Aide Relationship Specialty Start Date End Date Fernanda Barillas APRN [address] [place] [address] PCP - General 08/05/20 Sherron Duckworth, [place] [address] Planning Aide Dietary Director 06/20/21 06/20/21 documented as of this encounter
--- OUTSIDE RECORDS SUMMARY | 2024-11-06 09:52 | XMS_ITS | Encounter Summary ---
Author Organization Healthcare Address [address] [place] [address] Care Team Providers Care Job Trainer Name Role Phone Fernanda Barillas BRYANT Primary Care Provider +1- [phone] Encounter Details Date Type Department Care Team (Late Contact Info) Description 01/09/2023 Orders Only External Location [address] [place] [address] Provider, External Social History Tobacco Use Types [...] Upcoming Encounters Date Type Department Care Team ([facility] Contact Info) Description 02/16/2025 11:00 AM EST Appointment [facility] Radiology [address], [address]st [place] [address] 02/16/2025 2:30 PM EST Office Visit [facility] [address] [place] [address] Viral Skaggs MD [address] [facility] [address] [place] [address] documented as of this encounter Procedures Procedure [...] on filedocumented in this encounter Care Teams Job Trainer Relationship Specialty Start Date End Date Fernanda Barillas APRN [address] [place] [address] PCP - General 08/05/20 documented as of this encounter
--- OUTSIDE RECORDS SUMMARY | 2024-11-06 09:52 | XMS_ITS | Encounter Summary ---
Author Organization Healthcare Address [address] [place] [address] Care Team Providers Care Septic Cleaner Name Role Phone Fernanda Barillas BRYANT Primary Care Provider +1- [phone] Encounter Details Date Type Department Care Team (Late Contact Info) Description 01/28/2023 Orders Only External Location [address] [place] [address] Provider, External Social History Tobacco Use Types [...] Upcoming Encounters Date Type Department Care Team ([facility] Contact Info) Description 02/16/2025 11:00 AM EST Appointment [facility] Radiology [address] 1st [place] [address] 02/16/2025 2:30 PM EST Office Visit [facility] [address] [place] [address] Viral Skaggs MD [address] [facility] [address] [place] [address] documented as of this encounter Procedures Procedure [...] on filedocumented in this encounter Care Teams Septic Cleaner Relationship Specialty Start Date End Date Fernanda Barillas APRN [address] [place] [address] PCP - General 08/05/20 documented as of this encounter
--- OUTSIDE RECORDS SUMMARY | 2024-11-06 09:52 | XMS_ITS | Encounter Summary ---
Author Organization Healthcare Address [address] [place] [address] Care Team Providers Care Airplane And Engine Inspector Name Role Phone Fernanda Barillas BRYANT Primary Care Provider +1- [phone] Encounter Details Date Type Department Care Team (Latest Contact Info) Description 10/05/2024 Travel Social History Tobacco Use Types Packs/Day [...] S Radiology [address], [address]st [place] [address] 02/16/2025 2:30 PM EST Office Visit [facility] [address] [place] [address] Viral Skaggs MD [address] [place] [address] documented as of this encounter Visit Diagnoses Not on filedocumented in this encounter Additional Health Concerns Assessment Noted Time A fall risk assessment has been complete d for the patient 08/11/2024 2:03 PM EDT A Body Mass Index follow-up plan has been documented for the patient 08/21/2024 9:25 AM EDT documented as of this encounter Care Teams Airplane And Engine Inspector Relationship Specialty Start Date End Date Fernanda Barillas APRN [address] [place] [address] PCP - General 08/05/20 documented as of this encounter
--- OUTSIDE RECORDS SUMMARY | 2024-11-06 09:52 | XMS_ITS | Encounter Summary ---
Author Organization Healthcare Address [address] [place] [address] Care Team Providers Care Home Health Travel Pt Name Role Phone Fernanda Barillas BRYANT Primary Care Provider +1- [phone] Encounter Details Date Type Department Care Team (Late Contact Info) Description 01/09/2023 Orders Only External Location [address] [place] [address] Provider, External Social History Tobacco Use Types [...] Upcoming Encounters Date Type Department Care Team ([facility] Contact Info) Description 02/16/2025 11:00 AM EST Appointment [facility] Radiology [address]st [place] [address] 02/16/2025 2:30 PM EST Office Visit [facility] [address] [place] [address] Viral Skaggs MD [address] [facility] [address] [place] [address] documented as of this encounter Procedures Procedure [...] on filedocumented in this encounter Care Teams Home Health Travel Pt Relationship Specialty Start Date End Date Fernanda Barillas APRN [address] [place] [address] PCP - General 08/05/20 documented as of this encounter
--- OUTSIDE RECORDS SUMMARY | 2024-11-06 09:52 | XMS_ITS | Encounter Summary ---
Author Organization [facility] Address [address] [place] [address] Care Team Providers Care Lining Repairer Name Role Phone Fernanda Barillas APRN Primary Care Provider +1- [phone] Encounter Details Date Type Department Care Team (Late Contact Info) Description 08/12/2024 Lab Requisition [facility] [address] [place] [address] Viral Skaggs MD [address] [address] Polyp of colon Social History Tobacco Use [...] Department Care Team (Late Contact Info) Description 02/16/2025 11:00 AM EST Appointment [facility] [address]st [place] [address] 02/16/2025 2:30 PM EST Office Visit [facility] On[facility] [address] [place] [address] Viral Skaggs MD [address] [address] documented as of this encounter Procedures Procedure Name Priority Date/Time Associated Diagnosis Comments SURGICAL PATHOLOGY CONSULT Routine 08/12/2024 2:09 PM EDT Polyp of colon documented in this encounter Results * Surgical Pathology Consult (08/12/2024 2:09 PM EDT) Case Report Sugical Pathology Consult Case: [id number] Authorizing Provider: Viral Skaggs MD Collected: 08/12/20249 Ordering Location: [facility] Lab Received: 08/12/2024 1409 Pathologist: Clark Cornejo MD Specimen: Colon, [id number] 08/14/2024 8:12 AM EDT [facility] Final Diagnosis (OUTSIDE CASE: [id number], COLLECTED ON 12/12/2022): TRANSVERSE COLON, POLYP, BIOPSY (A): - BENIGN LYMPHOID AGGREGATE; NEGATIVE FOR DYSPLASIA PERIANAL MASS, BIOPSY (B): - INVASIVE SQUAMOUS CELL CARCINOMA, VARIABLY KERATINIZING 08/14/2024 8:12 AM EDT [facility] at 0812 EDT Clinical Information K63.5 - Polyp of colon [ICD-10-CM] 08/14/2024 8:12 AM EDT [facility] Gross Description A. [id number] Received along with a corresponding pathology report from [facility] are 7 slide(s) labeled outside case: [id number] collected on 12/12/2022. 08/14/2024 8:12 AM EDT [facility] Tissue Colon structure / Unknown 08/12/2024 2:09 PM EDT 08/12/2024 2:09 PM EDT us Viral Skaggs MD LAB PATHOLOGY ORDERABLES Final Result [facility] [address] [place] [address] documented in this encounter Visit Diagnoses Diagnosis Polyp of colon Benign neoplasm of colon documented in this encounter Additional Health Concerns Assessment Noted Time A fall risk assessment has been complete d for the patient 08/11/2024 2:03 PM EDT A Body Mass Index follow-up plan has been documented for the patient 08/21/2024 9:25 AM EDT documented as of this encounter Care Teams Lining Repairer Relationship Specialty Start Date End Date Fernanda Barillas APRN [address] [place] [address] PCP - General 08/05/20 documented as of this encounter
--- OUTSIDE RECORDS SUMMARY | 2024-11-06 09:52 | XMS_ITS | Encounter Summary ---
Author Organization [facility] Address [address] [place] [address] Care Team Providers Care Insurance Marketing Rep Name Role Phone Eran Fernandakarishma Ross APRN Primary Care Provider +1- [phone] Encounter Details Date Type Department Care Team (Late st Contact Info) Description 10/30/2024 Telephone [facility] [address] [place] [address] Viral Skaggs MD [address] [facility] [address] [place] [address] Social History Tobacco Use Types Packs/Day Years [...] as of this encounter Miscellaneous Notes * Telephone Encounter - Adina Hoffman - 11/06/2024 8:55 AM EDT Pt needs called before rescheduling stand alone CT. * Telephone Encounter - Ashtyn Fam - 10/30/2024 3:33 PM EDT Patient Phone Message Reason for Call: Patient calling to reschedule missed CT scan. Best contact number and optimal time of day to reach caller: [phone] Note: Please do not reply to this message. Follow-up communication and further actions as a result of this message need to be communicated with the patient directly, if the patient is not active onMyChart. If the patient is active on MyChart, they will receive notification of the communication/outcome via MyChart. documented in this encounter Plan of Treatment Upcoming Encounters Date Type Department Care Team (Late st Contact Info) Description 02/16/2025 11:00 AM EST Appointment [facility] [address] [place] [address] 02/16/2025 2:30 PM EST Office Visit [facility] [address] [place] [address] Viral Skaggs MD [address] [place] [address] documented as of this encounter Visit Diagnoses Not on filedocumented in this encounter Additional Health Concerns Assessment Noted Time A fall risk assessment has been complete d for the patient 08/11/2024 2:03 PM EDT A Body Mass Index follow-up plan has been documented for the patient 08/21/2024 9:25 AM EDT documented as of this encounter Care Teams Insurance Marketing Rep Relationship Specialty Start Date End Date Fernanda Barillas APRN [address] [place] [address] PCP - General 08/05/20 documented as of this encounter
--- OUTSIDE RECORDS SUMMARY | 2024-11-06 09:52 | XMS_ITS | Encounter Summary ---
Author Organization Healthcare Address [address] [place] [address] Care Team Providers Care Chair Inspector Name Role Phone Fernanda Barillas BRYANT Primary Care Provider +1- [phone] Encounter Details Date Type Department Care Team (Late Contact Info) Description 10/03/2023 Orders Only External Location [address] [place] [address] Provider, External Social History Tobacco Use Types [...] Upcoming Encounters Date Type Department Care Team ([facility] Contact Info) Description 02/16/2025 11:00 AM EST Appointment [facility] Radiology [address] [place] [address] 02/16/2025 2:30 PM EST Office Visit [facility] [address] [place] [address] Viral Skaggs MD [address] [email or web address] [address] [place] [address] documented as of this encounter Procedures Procedure Name Priority Date/Time Associated Diagnosis Comments CT ABDOMEN OUTSIDE IMAGES 10/03/2023 8:20 AM EDT documented in this encounter Results * CT ABDOMEN OUTSIDE IMAGES (10/03/2023 8:20 AM EDT) Anatomical Region Laterality Modality Computed Tomogra phy 10/03/2023 8:20 AM EDT us External Provider IMG CT PROCEDURES Final Result documented in this encounter Visit Diagnoses Not on filedocumented in this encounter Care Teams Chair Inspector Relationship Specialty Start Date End Date Fernanda Barillas APRN [address] [place] [address] PCP - General 08/05/20 documented as of this encounter
--- OUTSIDE RECORDS SUMMARY | 2024-11-06 09:52 | XMS_ITS | Encounter Summary ---
Author Organization Healthcare Address [address] [place] [address] Care Team Providers Care Senior Game Designer Name Role Phone Fernanda Barillas BRYANT Primary Care Provider +1- [phone] Encounter Details Date Type Department Care Team (Late Contact Info) Description 11/01/2022 Orders Only External Location [address] [place] [address] Provider, External Social History Tobacco Use Types [...] Upcoming Encounters Date Type Department Care Team ([facility] Contact Info) Description 02/16/2025 11:00 AM EST Appointment [facility] Radiology [address] [place] [address] 02/16/2025 2:30 PM EST Office Visit [facility] [address] [place] [address] Viral Skaggs MD [address] [facility] [address] [place] [address] documented as of this encounter Procedures Procedure [...] on filedocumented in this encounter Care Teams Senior Game Designer Relationship Specialty Start Date End Date Fernanda Barillas APRN [address] [place] [address] PCP - General 08/05/20 documented as of this encounter
--- OUTSIDE RECORDS SUMMARY | 2024-11-06 09:52 | XMS_ITS | Encounter Summary ---
Author Organization [facility] Address [address] [place] [address] Care Team Providers Care Financial Processing Clerk Name Role Phone Fernanda Barillas APRN Primary Care Provider +1- [phone] Encounter Details Date Type Department Care Team (Late st Contact Info) Description 08/06/2024 Lab Requisition [facility] [address] [place] [phone] Viral Skaggs MD [address] [phone] Unspecified malignant neoplasm of skin, unspecified Social [...] S Radiology [address], [address] [place] [phone] 02/16/2025 2:30 PM EST Office Visit [facility] [address] [place] [phone] Viral Skaggs MD [facility] [address] [phone] documented as of this encounter Procedures Procedure Name Priority Date/Time Associated Diagnosis Comments SURGICAL PATHOLOGY CONSULT Routine 08/06/2024 12:31 PM EDT Unspecified malignant neoplasm of skin, unspecified documented in this encounter Results * Surgical Pathology Consult (08/06/2024 12:31 PM EDT) Case Report Sugical Pathology Consult Case: [id number] Authorizing Provider: Viral Skaggs MD Collected: 08/06/2024 1231 Ordering Location: [facility] Lab Received: 08/06/2024 1231 Pathologist: Maritza Reynoso MD Specimen: Skin, [id number] 08/07/2024 9:53 AM EDT [facility] Final Diagnosis RIGHT ANTERIOR PERIANAL SKIN, BIOPSY ([id number]; 03/13/2024): - AN AREA OF HIGH-GRADE SQUAMOUS INTRAEPITHELIAL LESION IDENTIFIED. - NEGATIVE FOR INVASIVE CARCINOMA. PERINEAL BODY SKIN, BIOPSY ([id number]; 03/13/2024): - NEGATIVE FOR HIGH-GRADE SQUAMOUS INTRAEPITHELIAL LESION. LEFT PERINEAL SKIN, BIOPSY ([id number] C; 03/13/2024): - NEGATIVE FOR HIGH-GRADE SQUAMOUS INTRAEPITHELIAL LESION. 08/07/2024 9:53 AM EDT [facility] at 0953 EDT Clinical Information C44.90 - Unspecified malignant neoplasm of skin, unspecified [ICD-10-CM] 08/07/2024 9:53 AM EDT [facility] Gross Description A. [id number] Received along with a corresponding pathology report from [facility] are 15 slide(s) labeled outside case: [id number] collected on 03/13/2024. 08/07/2024 9:53 AM EDT [facility] Note: A resident was involved in the service. I attest I examined the relevant preparations for the specimens and confirmed the diagnosis or interpretation. 08/07/2024 9:53 AM EDT [facility] Tissue Skin structure / Unknown 08/06/2024 12:31 PM EDT 08/06/2024 12:31 PM EDT Viral Skaggs MD LAB PATHOLOGY ORDERABLES Final Result [facility] [address] [place] [address] documented in this encounter Visit Diagnoses Diagnosis Unspecified malignant neoplasm of skin, unspecified documented in this encounter Care Teams Financial Processing Clerk Relationship Specialty Start Date End Date Fernanda Barillas, AIR POLLUTION COMPLIANCE INSPECTOR [address] [place] [address] PCP - General 08/05/20 documented as of this encounter
--- OUTSIDE RECORDS SUMMARY | 2024-11-06 09:52 | XMS_ITS | Clinical Summary ---
Author Organization [facility] [place] [address] Care Team Providers Care Community Ambassador Name Role Phone None, Physician Primary Care Provider Unavailabl e Allergies No known active allergies Medications ciclesonide (ALVESCO) 80 MCG/ACT inhaler Inhale 1 puff into the lungs 2 (two) times daily. Active gabapentin (NEURONTIN) 100 MG capsule Take 100 mg by mouth 2 (two) times daily. Active polyethylene glycol (GLYCOLAX) 17 g packet Take 17 g by mouth daily. Active dilTIAZem HCl 2 % in lidocaine HCl CREAM 30 g compound Apply a pea sized amount to the anal opening, three times daily for 6 weeks. 30 g 12/23/2023 Active ALBUTEROL INHALER Inhale 2 puffs into the lungs as needed (every 4 hours as needed). Active Multiple Vitamin (MULTIVITAMIN ADULT PO) Take 1 tablet by mouth daily. Active Active Problems Problem Noted Date Diagnosed Date History of anal cancer 02/04/2024 Anal cancer 01/14/2023 09/12/2023 Vulvar cancer 11/02/2015 09/12/2023 Overview (09/12/2023): Last Assessment & Plan: Patient presents today with large vulvar lesion that has been bleeding significantly for the last 6 to 7 months. She has been provided with Provera tablets by the [facility] provider without change in her symptoms, bleeding currently accompanied by pelvic pain and pressure. 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 She has been provided with Provera tablets by the [facility] medical provider without change in her symptoms, bleeding currently accompanied by pelvic pain and pressure. 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 Immunizations Immunization Administration Dates Next Due COVID-19 Cash (J&J) 08/10/2020 Tdap 05/24/2014 Family History Medical History Relation Comments Cancer, Other or Unknown Type Mother Relation Status Comments Mother Social History Tobacco Use Types Packs/Day Years Used Date Smoking Tobacco: Former Cigarettes 0.5 30 1 - 01/11/2022 Smokeless Tobacco: Never Tobacco Cessation:Counseling Given: Not Answered Alcohol Use Standard Drinks/Week Comments Not Currently 0 (1 standard drink = 0.6 oz pur e alcohol) Comments No Sex and Gender Information Value Date Recorded Sex Assigned at Not on file Legal Sex Female 2:43 PM EDT Gender Identity Not on file Sexual Orientation Not on file Last Filed Vital Signs Vital Sign Reading Time Taken Comments Blood Pressure 102/82 06/10/2024 2:01 PM EDT Pulse 69 06/10/2024 2:01 PM EDT Temperature 36 C (96.8 F) 03/27/2024 9:42 AM EST Respiratory Rate 16 03/27/2024 9:42 AM EST Oxygen Saturation 96% 06/10/2024 2:01 PM EDT Inhaled Oxygen Concentration - - Weight 74.8 kg (165 lb) 04/14/2024 1:55 PM EST Height 160 cm (5' 3 ) 04/14/2024 1:55 PM EST Body Mass Index 29.23 04/14/2024 1:55 PM EST Plan of Treatment Health Maintenance Due Date Last Done Comments CT Colonography 1975 Colonoscopy 1975 FIT-DNA 1975 FIT 1975 Sigmoidoscopy 1975 Hepatitis B (HepB) Vaccine ( 1 of 3 - 19+ 3-dose series) 1996 Pneumococcal Vaccines 6-49 y o Risk (1 of 2 - PCV) 1996 Cervical Cancer Screening 1998 Colorectal Cancer Screening 11/01/2016 FOBT 11/01/2016 11/02/2015 Annual SDOH Screening 03/25/2024 Tdap/Td Vaccine >11 yo (2 - Td or Tdap) 05/24/2024 05/24/2014 Influenza Vaccine (#1) 2024 01/02/2024 Breast Cancer Screening 12/23/2025 12/24/2023 Hepatitis A (HepA) Vaccine Aged Out 09/14/2023 N o longer eligible based on patient's age to complete this topic HPV Vaccine Aged Out No longer eligi ble based on patient's age to complete this topic Haemophilus Influenzae Type B (Hib) Vaccine Aged Out No longer eligible b ased on patient's age to complete this topic Meningococcal ACWY Aged Out No longer eligible based on patient's age to complete this topic Polio (IPV) Aged Out No longer eligi ble based on patient's age to complete this topic Rotavirus (RV) Vaccine Aged Out No lo nger eligible based on patient's age to complete this topic Procedures Procedure Name Priority Date/Time Associated Diagnosis Comments MAMMOGRAM DOUGLAS DIAGNOSTIC BILATERAL Routine 12/24/2023 7:47 AM EDT Encounter for screening mammogram for malignant neoplasm of breast from Last 3 Months or Most Recently Relevant to Health Maintenance Results * Mammogram Douglas Diagnostic Bilateral (12/24/2023 7:47 AM EDT) Anatomical Region Laterality Modality Breast [facility] RAD Mammogra phy 12/24/2023 9:26 AM EDT Narrative 12/24/2023 9:31 AM EDT REVIEWING YOUR TEST RESULTS IN [facility] IS NOT A SUBSTITUTE FOR DISCUSSING THOSE RESULTS WITH YOUR HEALTH CARE PROVIDER. PLEASE CONTACT YOUR PROVIDER VIA [facility] TO DISCUSS ANY QUESTIONS OR CONCERNS YOU MAY HAVE REGARDING THESE TEST RESULTS. RADIOLOGY REPORT FACILITY: [facility] UNIT/AGE/GENDER: RANJANA OP AGE:48 Y SEX:F PATIENT NAME/: MARIA C LEAVITT 1975 UNIT NUMBER: [id number] ACCESSION NUMBER: [id number] Examination: Bilateral Digital Diagnostic Mammogram with Tomosynthesis and CAD. Date: 12/24/2023 8:52 AM Indication: Patient is a 48 year old female. The patient is seen for a diagnostic examination short interval follow-up of probably benign calcifications in the left breast. Views Performed: Cc and MLO views are obtained bilaterally and supplemented with tomosynthesis views. Orthogonal magnification views were also obtained on the left. Comparison: The present examination has been compared to prior imaging studies performed at [facility] on 10/02/2022 and 11/13/2022. Findings: Bilateral Mammogram: The breasts are heterogeneously dense, which may obscure small masses. No interval suspicious change in the diffuse scattered predominantly punctate and amorphous calcifications in imaging surveillance in the left breast. No new suspicious abnormality identified in either breast. Impression: No evidence of malignancy on the right. No interval suspicious change in the left breast at 12 month follow-up. Final Assessment: Probably Benign (BIRADS Category 3) Recommendations: Bilateral diagnostic mammogram in one year to document two-year stability. The patient was notified of the results and recommendations at the time of examination. A result letter will be sent to the patient. A reminder letter for the next mammogram will be scheduled for women aged 40 and over. Dictated by: Nora Williamson M.D. Images and Report reviewed and interpreted by: Nora Williamson M.D. <PS><Electronically signed by: Nora Williamson M.D.> 12/24/202329 [id number] Procedure Note Nora Williamson MD - 12/24/2023 REVIEWING YOUR TEST RESULTS IN THE MEDICAL CENTER IS NOT A SUBSTITUTE FORDISCUSSING THOSE RESULTS WITH YOUR HEALTH CARE PROVIDER. PLEASE CONTACT YOUR PROVIDER VIA THE MEDICAL CENTER TO DISCUSS ANY QUESTIONS ORCONCERNS YOU MAY HAVE REGARDING THESE TEST RESULTS. RADIOLOGY REPORT FACILITY: [facility] UNIT/AGE/GENDER: RANJANA OP AGE:48 Y SEX:F PATIENT NAME/: MARIA C LEAVITT 1975 UNIT NUMBER: [id number] ACCESSION NUMBER: [id number] Examination: Bilateral Digital Diagnostic Mammogram with Tomosynthesis and CAD. Date: 12/24/2023 8:52 AM Indication: Patient is a 48 year old female. The patient is seen for a diagnostic examination short interval follow-up of probably benign calcifications in the left breast. Views Performed: Cc and MLO views are obtained bilaterally and supplemented with tomosynthesis views. Orthogonal magnification views were also obtained on the left. Comparison: The present examination has been compared to prior imaging studies performed at [facility] on 10/02/2022 and 11/13/2022. Findings: Bilateral Mammogram: The breasts are heterogeneously dense, which may obscure small masses. No interval suspicious change in the diffuse scattered predominantly punctate and amorphous calcifications in imaging surveillance in the left breast. No new suspicious abnormality identified in either breast. Impression: No evidence of malignancy on the right. No interval suspicious change in the left breast at 12 month follow-up. Final Assessment: Probably Benign (BIRADS Category 3) Recommendations: Bilateral diagnostic mammogram in one year to document two-year stability. The patient was notified of the results and recommendations at the time of examination. A result letter will be sent to the patient. A reminder letter for the next mammogram will be scheduled for women aged 40 and over. Dictated by: Nora Williamson M.D. Images and Report reviewed and interpreted by: Nora Williamson M.D. <PS><Electronically signed by: Nora Williamson M.D.> 12/24/2023928 [id number] [id number] Natacha Mims [facility] MAMMOGRAPHY ORDERABLES Final Result from Last 3 Months or Most Recently Relevant to Health Maintenance Insurance * Guarantor: Maria C Leavitt Account Type Relation to Patient Date of Phone Billing Address Personal/Family Self 1975 [phone] (Home) [address] [place] [address] [facility] * Guarantor: Maria C Leavitt Account Type Relation to Patient Date of Phone Billing Address [facility] Self 1975 [phone] (Home) [address] [place] [address] Care Teams Community Ambassador Relationship Specialty Start Date End Date None, Physician PCP - General 07/30/23
--- OUTSIDE RECORDS SUMMARY | 2024-11-06 09:52 | XMS_ITS | Encounter Summary ---
Author Organization Healthcare Address [address] [place] [address] Care Team Providers Care High School Chemistry Teacher Name Role Phone Fernanda Barillas BRYANT Primary Care Provider +1- [phone] Encounter Details Date Type Department Care Team (Late Contact Info) Description 09/04/2023 Orders Only External Location [address] [place] [phone] Provider, External Social History Tobacco Use Types [...] Upcoming Encounters Date Type Department Care Team ([facility] Contact Info) Description 02/16/2025 11:00 AM EST Appointment [facility] S Radiology [address] [place] [phone] 02/16/2025 2:30 PM EST Office Visit [facility] [address] [place] [phone] Viral Skaggs MD [address] [facility] [address] [place] [phone] documented as of this encounter Procedures Procedure [...] on filedocumented in this encounter Care Teams [employer] Chemistry Teacher Relationship Specialty Start Date End Date Fernanda Barillas APRN [address] [place] [address] PCP - General 08/05/20 documented as of this encounter
[2024-11-06 11:42] LABS: Alanine Aminotransferase 21 U/L (12-78); Albumin Level 4.3 g/dl (3.5-5.0); Albumin/Globulin Ratio 1.5 (1.1-1.8); Alkaline Phosphatase 155 U/L (38-126); Anion Gap 12.1 mEq/L (5-15); Aspartate Amino Transferase 33 U/L (14-36); Bilirubin,Total 0.2 mg/dl (0.2-1.3); Blood Urea Nitrogen 8 mg/dl (7-17); Calcium 9.2 mg/dl (8.4-10.2); Carbon Dioxide 26 mmol/L (22.0-30.0); Chloride 107 mmol/L (98-107); Creatinine,Serum 0.70 mg/dl (0.52-1.04); Estimated Glomerular Filt Rate 90 ml/min (>60); GFR (African American) 109 ML/MIN (>60); Globulin 2.8 g/dL (1.3-3.2); Glucose 94 mg/dl (74-100); Potassium 4.1 mmoL/L (3.5-5.1); Sodium 141 mmol/L (136-145); Total Protein,Serum 7.1 g/dl (6.3-8.2)
[2024-11-11 01:08] LABS: ALT (SGPT) P5P 18 IU/L (0-40); AST (SGOT) P5P 29 IU/L (0-40); Alpha 2-Macroglobulins, Qn 204 mg/dL (110-276); Bilirubin, Total <0.2 mg/dL (0.0-1.2); Cholesterol, Total 203 mg/dL (100-199); GGT 31 IU/L (0-60); Glucose 95 mg/dL (70-99); Triglycerides 221 mg/dL (0-149)
== END 2024-11-06 23:59 | disposition home or self-care (01) ==
LOC: LAB 09:51
PROVIDERS: PCP Family Medicine; Visit Provider Nurse Practitioner Family
DX: R74.8 Abnormal levels of other serum enzymes (principal)
CPT/HCPCS: 36415; 80053; 81596; 82172; 82247; 82465; 82947; 82977; 83521; 84450; 84460; 84478

== ENCOUNTER 2024-11-26 12:29 | Outpatient (CLI) | payer OTHER, SELFPAY ==
--- OUTSIDE RECORDS SUMMARY | 2024-11-13 14:19 | XMS_ITS | Encounter Summary ---
Author Organization [facility] Address [address] [place] [address] Care Team Providers Care Customer Supply Coordinator Name Role Phone Fernanda Barillas APRN Primary Care Provider +1- [phone] Reason for Referral * Imaging (Routine) - Closed Specialty Diagnoses / Procedures Referred By Contac t Referred To Contact Radiology Diagnoses Anal cancer (CMS/HCC) Procedures CT Abdomen Pelvis w IV Contrast Viral Skaggs MD [address] [address] Phone: tel: fax: Referral ID Status Reason Start Date Expiration Date Visits Re quested Visits Authorized [id number] Closed 08/11/2024 02/10/2026 1 1 * Imaging (Routine) - Closed Specialty Diagnoses / Procedures Referred By Contac t Referred To Contact Radiology Diagnoses Anal cancer (CMS/HCC) Tobacco use Pulmonary nodule Procedures CT Chest w IV Contrast Viral Skaggs MD [address] [address] Phone: tel: fax: Referral ID Status Reason Start Date Expiration Date Visits Re quested Visits Authorized [id number] Closed 08/11/2024 02/10/2026 1 1 Reason for Visit * Imaging (Routine) - Closed Specialty Diagnoses / Procedures Referred By Susana t Referred To Contact Radiology Diagnoses Anal cancer (CMS/HCC) Procedures CT Abdomen Pelvis w IV Contrast Viral Skaggs MD [address] [place] [address] Phone: tel: fax: Referral ID Status Reason Start Date Expiration Date Visits Re quested Visits Authorized [id number] Closed 08/11/2024 02/10/2026 1 1 Encounter Details Date Type Department Care Team (Latest Contact Info) Description 11/13/2024 2:19 PM EDT - 11/13/2024 11:59 PM EDT Hospital Encounter [facility] CT [address] [place] [address] Anal cancer (CMS/HCC); Tobacco use; [...] times a day. Vitamin D3 1.25 MG (84323 UT) capsule Take 1 capsule by mouth [...] Description 02/16/2025 11:00 AM EST Appointment [facility] Radiology [address] [place] [address] 02/16/2025 2:30 PM EST Office Visit [facility] [address] [place] [address] Viral Skaggs MD [address] [place] [address] documented as of this encounter [...] documented as of this encounter Care Teams Customer Supply Coordinator Relationship Specialty Start Date End Date Fernanda Barillas APRN [address] [place] [address] PCP - General 08/05/20 documented as of this encounter
--- NOTE | 2024-11-26 12:31 | XR_ITS ---
FINAL REPORT CLINICAL HISTORY: Bilateral Foot Pain FINDINGS: Right foot Three views were obtained. There is no fracture or dislocation. The joint spaces appear normal. No soft tissue abnormality is identified. 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 IMPRESSION: No acute process. Reviewed, Interpreted and Dictated by Radmaes Jung MD Transcribed by Carlotta Gill Authenticated and [facility]
--- NOTE | 2024-11-26 12:31 | XR_ITS ---
FINAL REPORT CLINICAL HISTORY: Bilateral foot pain FINDINGS: Left foot Three views were obtained. There is no fracture or dislocation. The joint spaces appear normal. No soft tissue abnormality is identified. IMPRESSION: No acute process. Reviewed, Interpreted and Dictated by Radames Jung MD Transcribed by Carlotta Gill Authenticated and [facility]
--- OUTSIDE RECORDS SUMMARY | 2024-11-26 12:35 | XMS_ITS | Encounter Summary ---
Author Organization Healthcare Address [address] [place] [address] [address] Care [address] Man Name Role Phone Fernanda Barillas BRYANT Primary Care Provider +1- [phone] Encounter Details Date Type Department Care Team (Late Contact Info) Description 01/09/2023 Orders Only External Location [address] [place] [address] Provider, External Social History Tobacco Use Types [...] Upcoming Encounters Date Type Department Care Team ([facility] Contact Info) Description 02/16/2025 11:00 AM EST Appointment [facility] Radiology [address] [place] [address] 02/16/2025 2:30 PM EST Office Visit [facility] [address] [place] [address] Viral Skaggs MD [address] [facility] [address] [place] [address] documented as of this encounter Procedures Procedure [...] on filedocumented in this encounter Care Teams Drive Man Relationship Specialty Start Date End Date Fernanda Barillas APRN [address] [place] [address] PCP - General 08/05/20 documented as of this encounter
--- OUTSIDE RECORDS SUMMARY | 2024-11-26 12:35 | XMS_ITS | Encounter Summary ---
Author Organization [facility] Address [address] [place] [address] Care Team Providers Care Vice President Of Instruction Name Role Phone Fernanda Barillas APRN Primary Care Provider +1- [phone] Encounter Details Date Type Department Care Team (Late st Contact Info) Description 10/30/2024 Telephone [facility] [address] [place] [address] Viral Skaggs MD [address] [facility] [address] [place] [address] Social History Tobacco Use Types Packs/Day Years [...] encounter Miscellaneous Notes * Telephone Encounter - Veronica Yuen Evelina - 11/09/2024 2:37 PM EDT Called and spoke with patient. States she cannot do Tuesdays but can attend appointment on any other day. Patient states she does not need a phone call once this CT CAP is scheduled, as she has an active MyChart. Patient's CT CAP is now scheduled for 11/13/24 @ 1500 (1400 arrival, NPO x 4 hours, water okay). Mailed appointment reminder to patient. * Telephone Encounter - Adina Hoffman - 11/06/2024 8:55 AM EDT Pt needs called before rescheduling stand alone CT. * Telephone Encounter - Ashtyn Fam - 10/30/2024 3:33 PM EDT Patient Phone Message Reason for Call: Patient calling to reschedule missed CT scan. Best contact number and optimal time of day to reach caller: [phone] Note: Please do not reply to this message. Follow-up communication and further actions as a result of this message need to be communicated with the patient directly, if the patient is not active onMyChart. If the patient is active on MyChart, they will receive notification of the communication/outcome via [employer]. documented in this encounter Plan of Treatment Upcoming Encounters Date Type Department Care Team (Late st Contact Info) Description 02/16/2025 11:00 AM EST Appointment [facility] [address] [place] [address] 02/16/2025 2:30 PM EST Office Visit [facility] [address] [place] [address] Viral Skaggs MD [address] [facility] [address] [place] [address] documented as of this encounter Visit Diagnoses Not on filedocumented in this encounter Additional Health Concerns Assessment Noted Time A fall risk assessment has been complete d for the patient 08/11/2024 2:03 PM EDT A Body Mass Index follow-up plan has been documented for the patient 08/21/2024 9:25 AM EDT documented as of this encounter Care Teams Vice President Of Instruction Relationship Specialty Start Date End Date Fernanda Barillas, BAILING MACHINE OPERATOR [address] [place] [address] PCP - General 08/05/20 documented as of this encounter
--- OUTSIDE RECORDS SUMMARY | 2024-11-26 12:35 | XMS_ITS | Clinical Summary ---
Author Organization [facility] Address [address] [place] [address] Care Team Providers Care Radiology Tech Name Role Phone Barillas Fernandakarishma Ross APRN Primary Care Provider +1- [phone] Allergies No known active allergies Medications albuterol 108 (90 Base) MCG/ACT inhaler Inhale 1 puff every 4 hours. 07/23/2024 Active buprenorphine-n aloxone (Suboxone) 8-[address] 1 tablet under the tongue daily. 08/06/2024 Active Vitamin D3 1.25 MG (05359 UT) capsule Take 1 capsule by mouth [...] Encounters Date Type Department Care Team Description 11/13/2024 2:19 PM EDT - 11/13/2024 11:59 PM EDT Hospital Encounter [facility] [address] [place] [address] Anal cancer (CMS/HCC); Tobacco use; Pulmonary nodule Discharge Disposition: Home or Self Care 11/13/2024 Travel 11/12/2024 Travel 10/30/2024 Telephone [facility] [address] [place] [address] Viral Skaggs MD 10/05/2024 Travel from Last 3 Months Social History Tobacco [...] Info) Description 02/16/2025 11:00 AM EST Appointment [facility] Radiology [address] [place] [address] 02/16/2025 2:30 PM EST Office Visit [facility] Multidisciplinary Oncology Clinic [address] [place] [address] Viral Skaggs MD [address] [place] [address] Health Maintenance Due Date Last [...] (2 - Td or Tdap) 05/24/2024 05/24/2014 [id number] Vaccine (3 - season) 2024 02/13/2024, 08/10/2020 [...] (CMS/HCC) CT CHEST W IV CONTRAST Routine 3:11 PM EDT Anal cancer (CMS/HCC) Tobacco use Pulmonary nodule HEPATITIS C ANTIBODY - ED W/REFLEX TO HCV QUANT PCR STAT 06/20/2021 2:04 PM EDT HIV 1/2 ANTIBODY/ANTIGEN SCREEN WITH REFLEX TO HIV I/II DIFFERENTIATION STAT 06/20/2021 2:04 PM EDT from Last 3 Months or Most Recently Relevant to Health Maintenance Results * CT Abdomen Pelvis w IV [...] signing this report, I, the attending physician, [place] I have personally reviewed the images/data for [...] MD IMG CT PROCEDURES Final Result * HIV 1 & 2 Antibody/Antigen Screen (06/20/2021 2:04 PM EDT) HIV 1 & 2 Antibody/Anti gen Screen Nonreactive Nonreactive 06/20/2021 4:07 PM EDT [facility] Blood Venous blood specimen / Unknown Venipuncture / Unknown 06/20/2021 2:04 PM EDT 06/20/2021 2:18 PM EDT us Trice Doe MD LAB BLOOD ORDERABLES Final Res ult [facility] [address] [place] [address] * (ABNORMAL) Simpson Hepatitis C Antibody (06/20/2021 2:04 PM EDT) Hepatitis C Antibody Positive( A) Negative 06/20/2021 4:53 PM EDT [facility] Comment:This specimen is angel ng sent for confirmation by RT-PCR. Blood Venous blood specimen / Unknown Venipuncture / Unknown 06/20/2021 2:04 PM EDT 06/20/2021 2:18 PM EDT us Trice Doe MD LAB BLOOD ORDERABLES Final Res ult Performing Organization Address City/[facility] [address]/ZIP Co de Phone Number [facility] [address] [place] [address] from Last 3 Months or Most Recently Relevant to Health Maintenance Insurance [employer] MEDICAID Advance Directives * Full Code (Latest Code Status on File) Date Activated Date Inactivated Comments 06/20/2021 4:30 PM 06/21/2021 10:05 PM Question Answer Comments Patient has decision-making capacity? Yes Care Teams Radiology Tech Relationship Specialty Start Date End Date Fernanda Barillas APRN [address] [place] [address] [facility] - General 08/05/20
--- OUTSIDE RECORDS SUMMARY | 2024-11-26 12:35 | XMS_ITS | Encounter Summary ---
Author Organization Healthcare Address [address] [place] [address] Care Team Providers Care Hvac Technician Name Role Phone Barillas Fernandakarishma Ross APRN Primary Care Provider +1- [phone] Sherron Duckworth SAFETY ENGINEER [employer]URE [employer]ESSE[employer] Unavailable Unavailable Encounter Details Date Type Department Care Team (Late st Contact Info) Description 11/01/2008 Orders Only External Location [address] [place] [address] Provider, External Social History Tobacco Use Types [...] S Radiology [address] 1st [place] [address] 02/16/2025 2:30 PM EST Office Visit [facility] [address] [place] [address] Viral Skaggs MD [address] [place] [address] documented as of this encounter [...] on filedocumented in this encounter Care Teams Hvac Technician Relationship Specialty Start Date End Date Fernanda Barillas APRN [address] [place] [address] PCP - General 08/05/20 Sherron Duckworth, [place] [address] Bracelet Former District Traffic Chief 06/20/21 06/20/21 documented as of this encounter
--- OUTSIDE RECORDS SUMMARY | 2024-11-26 12:35 | XMS_ITS | Clinical Summary ---
Author Organization [facility] Address [address] [place] [address] Care Team Providers Care Cold Storage Supervisor Name Role Phone None, Physician Primary Care [...] been provided with Provera tablets by the skilled nursing medical provider without change in her symptoms, bleeding currently accompanied by pelvic pain and pressure. 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 She has been provided with Provera tablets by the skilled nursing medical provider without change in her symptoms, [...] AM EDT) Anatomical Region Laterality Modality Breast [facility] RAD Mammogra phy 12/24/2023 9:26 AM EDT Narrative 12/24/2023 9:31 AM EDT REVIEWING YOUR TEST RESULTS IN [facility] FOR DISCUSSING THOSE RESULTS WITH YOUR HEALTH CARE PROVIDER. PLEASE CONTACT YOUR PROVIDER [facility]IA [facility] TO DISCUSS ANY QUESTIONS OR CONCERNS YOU MAY HAVE REGARDING THESE TEST RESULTS. RADIOLOGY REPORT FACILITY: [facility] UNIT/AGE/GENDER: RANJANA OP AGE:48 Y SEX:F PATIENT NAME/: MARIA C GRIMALDO 1975 UNIT NUMBER: [id number] ACCESSION NUMBER: [id number] Examination: Bilateral Digital Diagnostic Mammogram with Tomosynthesis [...] compared to prior imaging studies performed at [facility] on 10/02/2022 and 11/13/2022. Findings: Bilateral Mammogram: [...] - 12/24/2023 REVIEWING YOUR TEST RESULTS IN [facility] IS NOT A SUBSTITUTE FORDISCUSSING THOSE RESULTS WITH YOUR HEALTH CARE PROVIDER. PLEASE CONTACT YOUR PROVIDER [facility] TO DISCUSS ANY QUESTIONS ORCONCERNS YOU MAY HAVE REGARDING THESE TEST RESULTS. RADIOLOGY REPORT FACILITY: [facility] UNIT/AGE/GENDER: RANJANA OP AGE:48 Y SEX:F PATIENT NAME/: MARIA C GRIMALDO 1975 UNIT NUMBER: [id number] ACCESSION NUMBER: [id number] Examination: Bilateral Digital Diagnostic Mammogram with Tomosynthesis [...] compared to prior imaging studies performed at [facility] on 10/02/2022 and 11/13/2022. Findings: Bilateral Mammogram: [...] Nora Williamson M.D.> 12/24/2023928 [phone] Natacha Felicita SQUEAK RATTLE AND LEAK REPAIRER [facility] MAMMOGRAPHY ORDERABLES Final Result from Last 3 Months or Most Recently Relevant to Health Maintenance Insurance * Guarantor: Maria C Grimaldo Account Type Relation to Patient Date of Phone Billing Address Personal/Family Self 1975 [phone] (Home) [address] [place] [address] [facility] * Guarantor: Maria C Grimaldo Account Type Relation to Patient Date of Phone Billing Address [facility] Self 1975 [phone] (Home) [address] [place] [address] Care Teams Cold Storage Supervisor Relationship Specialty Start Date End Date None, Physician PCP - General 07/30/23
--- OUTSIDE RECORDS SUMMARY | 2024-11-26 12:35 | XMS_ITS | Encounter Summary ---
Author Organization Healthcare Address [address] [place] [address] Care Team Providers Care Footwear Machinery Instructor Name Role Phone Fernanda Barillas BRYANT Primary Care Provider +1- [phone] Encounter Details Date Type Department Care Team (Late Contact Info) Description 10/03/2023 Orders Only External Location [address] [place] [address] Provider, External Social History Tobacco Use Types [...] Upcoming Encounters Date Type Department Care Team ([facility] Contact Info) Description 02/16/2025 11:00 AM EST Appointment [facility] S Radiology [address] [place] [address] 02/16/2025 2:30 PM EST Office Visit [facility] [address] [place] [address] Viral Skaggs MD [address] [facility] [address] [place] [address] documented as of this encounter Procedures Procedure [...] on filedocumented in this encounter Care Teams Footwear Machinery Instructor Relationship Specialty Start Date End Date Fernanda Barillas APRN [address] [place] [address] PCP - General 08/05/20 documented as of this encounter
--- OUTSIDE RECORDS SUMMARY | 2024-11-26 12:35 | XMS_ITS | Encounter Summary ---
Author Organization Healthcare Address [address] [place] [address] Care Team Providers Care Powerhouse Electrician Name Role Phone Fernanda Barillas BRYANT Primary Care Provider +1- [phone] Encounter Details Date Type Department Care Team (Latest Contact Info) Description 11/13/2024 Travel Social History Tobacco Use Types Packs/Day [...] S Radiology [address] [place] [address] 02/16/2025 2:30 PM EST Office Visit [facility] [address] [place] [address] Viral Skaggs MD [address] [place] [address] documented as of this encounter Visit Diagnoses Not on filedocumented in this encounter Additional Health Concerns Assessment Noted Time A fall risk assessment has been complete d for the patient 08/11/2024 2:03 PM EDT A Body Mass Index follow-up plan has been documented for the patient 08/21/2024 9:25 AM EDT documented as of this encounter Care Teams Powerhouse Electrician Relationship Specialty Start Date End Date Fernanda Barillas APRN [address] [place] [address] PCP - General 08/05/20 documented as of this encounter
--- OUTSIDE RECORDS SUMMARY | 2024-11-26 12:35 | XMS_ITS | Encounter Summary ---
Author Organization Healthcare Address [address] [place] [address] Care Team Providers Care Street Flusher Driver Name Role Phone Fernanda Barillas BRYANT Primary Care Provider +1- [phone] Encounter Details Date Type Department Care Team (Late Contact Info) Description 09/04/2023 Orders Only External Location [address] [place] [address] Provider, External Social History Tobacco Use Types [...] Date Type Department Care Team ([facility] Contact Info) Description 02/16/2025 11:00 AM EST Appointment [facility]iology [address] [place] [address] 02/16/2025 2:30 PM EST Office Visit [facility] [address] [place] [address] Viral Skaggs MD [address] [facility] [address] [place] [address] documented as of this encounter Procedures Procedure [...] on filedocumented in this encounter Care Teams Street Flusher Driver Relationship Specialty Start Date End Date Fernanda Barillas APRN [address] [place] [address] PCP - General 08/05/20 documented as of this encounter
--- OUTSIDE RECORDS SUMMARY | 2024-11-26 12:35 | XMS_ITS | Encounter Summary ---
Author Organization [facility] Address [address] [place] [address] Care Team Providers Care Commodity Merchant Name Role Phone Fernanda Barillas APRN Primary Care Provider +1- [phone] Encounter Details Date Type Department Care Team (Late st Contact Info) Description 08/06/2024 Lab Requisition [facility] [address] [place] [address] Viral Skaggs MD [address] [phone] Unspecified malignant neoplasm of skin, unspecified Social [...] S Radiology [address] [place] [address] 02/16/2025 2:30 PM EST Office Visit [facility] [address] [place] [address] Viral Skaggs MD [facility] [address] [address] documented as of this encounter Procedures Procedure Name Priority Date/Time Associated Diagnosis Comments SURGICAL PATHOLOGY CONSULT Routine 08/06/2024 12:31 PM EDT Unspecified malignant neoplasm of skin, unspecified documented in this encounter Results * Surgical Pathology Consult (08/06/2024 12:31 PM EDT) Case Report Sugical Pathology Consult Case: [id number] Authorizing Provider: Viral Skaggs MD Collected: 08/06/2024 1231 Ordering Location: [facility] Lab Received: 08/06/2024 1231 Pathologist: Maritza Reynoso MD Specimen: Skin, [id number] 08/07/2024 9:53 AM EDT [facility] Final Diagnosis RIGHT ANTERIOR PERIANAL SKIN, BIOPSY ([id number]; 03/13/2024): - AN AREA OF HIGH-GRADE SQUAMOUS INTRAEPITHELIAL LESION IDENTIFIED. - NEGATIVE FOR INVASIVE CARCINOMA. PERINEAL BODY SKIN, BIOPSY ([id number]; 03/13/2024): - NEGATIVE FOR HIGH-GRADE SQUAMOUS INTRAEPITHELIAL LESION. LEFT PERINEAL SKIN, BIOPSY ([id number]; 03/13/2024): - NEGATIVE FOR HIGH-GRADE SQUAMOUS INTRAEPITHELIAL LESION. 08/07/2024 9:53 AM EDT [facility] at 0953 EDT Clinical Information C44.90 - Unspecified malignant neoplasm of skin, unspecified [ICD-10-CM] 08/07/2024 9:53 AM EDT [facility] Gross Description A. [id number] Received along with a corresponding pathology report from [facility] are 15 slide(s) labeled outside case: [id number] collected on 03/13/2024. 08/07/2024 9:53 AM EDT [facility] Note: A resident was involved in the service. I attest I examined the relevant preparations for the specimens and confirmed the diagnosis or interpretation. 08/07/2024 9:53 AM EDT [facility] Tissue Skin structure / Unknown 08/06/2024 12:31 PM EDT 08/06/2024 12:31 PM EDT Viral kSaggs MD LAB PATHOLOGY ORDERABLES Final Result [facility] [address] [place] [address] documented in this encounter Visit Diagnoses Diagnosis Unspecified malignant neoplasm of skin, unspecified documented in this encounter Care Teams Commodity Merchant Relationship Specialty Start Date End Date Fernanda Barillas, CATCHER HELPER [address] [place] [address] PCP - General 08/05/20 documented as of this encounter
--- OUTSIDE RECORDS SUMMARY | 2024-11-26 12:35 | XMS_ITS | Encounter Summary ---
Author Organization Healthcare Address [address] [place] [address] Care Team Providers Care Sediment Remediation Consultant Name Role Phone Fernanda Barillas BRYANT Primary Care Provider +1- [phone] Encounter Details Date Type Department Care Team (Late Contact Info) Description 01/09/2023 Orders Only External Location [address] [place] [address] Provider, External Social History Tobacco Use Types [...] Upcoming Encounters Date Type Department Care Team ([facility] Contact Info) Description 02/16/2025 11:00 AM EST Appointment [facility] S Radiology [address] [place] [address] 02/16/2025 2:30 PM EST Office Visit [facility] [address] [place] [phone] Viral Skaggs MD [address] [facility] [address] [place] [address] documented as of this encounter Procedures Procedure [...] on filedocumented in this encounter Care Teams Sediment Remediation Consultant Relationship Specialty Start Date End Date Fernanda Barillas APRN [address] [place] [address] PCP - General 08/05/20 documented as of this encounter
--- OUTSIDE RECORDS SUMMARY | 2024-11-26 12:35 | XMS_ITS | Encounter Summary ---
Author Organization Healthcare Address [address] [place] [address] Care Team Providers Care Timber Management Professor Name Role Phone Fernanda Barillas BRYANT Primary Care Provider +1- [phone] Encounter Details Date Type Department Care Team (Latest Contact Info) Description 11/12/2024 Travel Social History Tobacco Use Types Packs/Day [...] S Radiology [address], 1st [place] [address] 02/16/2025 2:30 PM EST Office [facility] [address] [place] [address] Viral Skaggs MD [address] [place] [address] documented as of this encounter Visit Diagnoses Not on filedocumented in this encounter Additional Health Concerns Assessment Noted Time A fall risk assessment has been complete d for the patient 08/11/2024 2:03 PM EDT A Body Mass Index follow-up plan has been documented for the patient 08/21/2024 9:25 AM EDT documented as of this encounter Care Teams Timber Management Professor Relationship Specialty Start Date End Date Fernanda Barillas APRN [address] [place] [address] PCP - General 08/05/20 documented as of this encounter
--- OUTSIDE RECORDS SUMMARY | 2024-11-26 12:35 | XMS_ITS | Encounter Summary ---
Author Organization Healthcare Address [address] [place] [address] Care Team Providers Care Set Off Blocker Name Role Phone Fernanda Barillas BRYANT Primary Care Provider +1- [phone] Encounter Details Date Type Department Care Team (Late Contact Info) Description 11/01/2022 Orders Only External Location [address] [place] [address] Provider, External Social History Tobacco Use Types [...] Upcoming Encounters Date Type Department Care Team ([facility] Contact Info) Description 02/16/2025 11:00 AM EST Appointment [facility] S Radiology [address], 1st [place] [address] 02/16/2025 2:30 PM EST Office Visit [facility] [address] [place] [address] Viral Skaggs MD [address] [facility] [address] [place] [address] documented as of this encounter Procedures Procedure [...] on filedocumented in this encounter Care Teams Set Off Blocker Relationship Specialty Start Date End Date Fernanda Barillas APRN [address] [place] [address] PCP - General 08/05/20 documented as of this encounter
--- OUTSIDE RECORDS SUMMARY | 2024-11-26 12:35 | XMS_ITS | Encounter Summary ---
Author Organization [facility] Address [address] [place] [address] Care Team Providers Care Flush Tester Name Role Phone Fernanda Barillas APRN Primary Care Provider +1- [phone] Encounter Details Date Type Department Care Team (Late Contact Info) Description 08/12/2024 Lab Requisition [facility] [address] [place] [address] Viral Skaggs MD [address] [address] Polyp of colon Social History [...] [facility] Radiology [address], 1st [place] [address] 02/16/2025 2:30 PM EST Office Visit [facility] [address] [place] [address] Viral Skaggs MD [address] [address] documented as of this encounter Procedures Procedure Name Priority Date/Time Associated Diagnosis Comments SURGICAL PATHOLOGY CONSULT Routine 08/12/2024 2:09 PM EDT Polyp of colon documented in this encounter Results * Surgical Pathology Consult (08/12/2024 2:09 PM EDT) Case Report Sugical Pathology Consult Case: [id number] Authorizing Provider: Viral Skaggs MD Collected: 08/12/20249 Ordering Location: [facility] Lab Received: 08/12/2024 1409 Pathologist: Clark Cornejo MD Specimen: Colon, [id number] 08/14/2024 8:12 AM EDT [facility] Final Diagnosis (OUTSIDE CASE: [id number], COLLECTED ON 12/12/2022): TRANSVERSE COLON, POLYP, BIOPSY (A): - BENIGN LYMPHOID AGGREGATE; NEGATIVE FOR DYSPLASIA PERIANAL MASS, BIOPSY (B): - INVASIVE SQUAMOUS CELL CARCINOMA, VARIABLY KERATINIZING 08/14/2024 8:12 AM EDT [facility] at 0812 EDT Clinical Information K63.5 - Polyp of colon [ICD-10-CM] 08/14/2024 8:12 AM EDT [facility] Gross Description A. [id number] Received along with a corresponding pathology report from [facility] are 7 slide(s) labeled outside case: [id number] collected on 12/12/2022. 08/14/2024 8:12 AM EDT [facility] Tissue Colon structure / Unknown 08/12/2024 2:09 PM EDT 08/12/2024 2:09 PM EDT us Viral Skaggs MD LAB PATHOLOGY ORDERABLES Final Result [facility] [address] [place] [address] documented in this encounter Visit Diagnoses Diagnosis Polyp of colon Benign neoplasm of colon documented in this encounter Additional Health Concerns Assessment Noted Time A fall risk assessment has been complete d for the patient 08/11/2024 2:03 PM EDT A Body Mass Index follow-up plan has been documented for the patient 08/21/2024 9:25 AM EDT documented as of this encounter Care Teams Flush Tester Relationship Specialty Start Date End Date Fernanda Barillas APRN [address] [place] [address] PCP - General 08/05/20 documented as of this encounter
--- OUTSIDE RECORDS SUMMARY | 2024-11-26 12:35 | XMS_ITS | Encounter Summary ---
Author Organization Healthcare Address [address] [place] [address] Care Team Providers Care Manager Underwriting Name Role Phone Fernanda Barillas BRYANT Primary Care Provider +1- [phone] Encounter Details Date Type Department Care Team (Late Contact Info) Description 01/28/2023 Orders Only External Location [address] [place] [address] Provider, External Social History Tobacco Use Types [...] Upcoming Encounters Date Type Department Care Team ([facility] Contact Info) Description 02/16/2025 11:00 AM EST Appointment [facility] S Radiology [address]st [place] [address] 02/16/2025 2:30 PM EST Office Visit [facility] [address] [place] [phone] Viral Skaggs MD [address] [facility] [address] [place] [address] documented as of this encounter Procedures Procedure [...] on filedocumented in this encounter Care Teams Manager Underwriting Relationship Specialty Start Date End Date Fernanda Barillas APRN [address] [place] [address] PCP - General 08/05/20 documented as of this encounter
== END 2024-11-26 23:59 | disposition home or self-care (01) ==
LOC: RAD 12:30
PROVIDERS: PCP Family Medicine; Visit Provider Podiatrist
DX: M79.671 Pain in right foot (principal); M79.672 Pain in left foot
CPT/HCPCS: 73630

== ENCOUNTER 2025-01-09 15:39 | Emergency (ER) | payer OTHER, SELFPAY ==
--- OUTSIDE RECORDS SUMMARY | 2024-11-13 14:19 | XMS_ITS | Encounter Summary ---
Author Organization [facility] Address [address] [place] [address] Care Team Providers Care Production Coordinator Name Role Phone Fernanda Barillas APRN Primary Care Provider [phone] Reason for Referral * Imaging (Routine) - Closed Specialty Diagnoses / Procedures Referred By Contac t Referred To Contact Radiology Diagnoses Anal cancer (CMS/HCC) Procedures CT Abdomen Pelvis w IV Contrast Viral Skaggs MD [address] [address] Phone: tel: fax: Referral ID Status Reason Start Date Expiration Date Visits Re quested Visits Authorized [id number] Closed 08/11/2024 02/10/2026 1 1 * Imaging (Routine) - Closed Specialty Diagnoses / Procedures Referred By Contac t Referred To Contact Radiology Diagnoses Anal cancer (CMS/HCC) Tobacco use Pulmonary nodule Procedures CT Chest w IV Contrast Viral Skaggs MD [address] [address] Phone: tel: fax: Referral ID Status Reason Start Date Expiration Date Visits Re quested Visits Authorized [id number] Closed 08/11/2024 02/10/2026 1 1 Reason for Visit * Imaging (Routine) - Closed Specialty Diagnoses / Procedures Referred By Susana t Referred To Contact Radiology Diagnoses Anal cancer (CMS/HCC) Procedures CT Abdomen Pelvis w IV Contrast Viral Skaggs MD [address] [place] [address] Phone: tel: fax: Referral ID Status Reason Start Date Expiration Date Visits Re quested Visits Authorized [id number] Closed 08/11/2024 02/10/2026 1 1 Encounter Details Date Type Department Care Team (Latest Contact Info) Description 11/13/2024 2:19 PM EDT - 11/13/2024 11:59 PM EDT Hospital Encounter [facility] [address] [place] [address] Anal cancer (CMS/HCC); Tobacco use; Pulmonary nodule Discharge Disposition: Home or Self Care Social History Tobacco Use Types Packs/Day Years [...] on file documented as of this encounter Medications at Time of Discharge albuterol 108 (90 Base) MCG/ACT inhaler Inhale 1 puff every 4 hours. 07/23/2024 buprenorphine-nal oxone (Suboxone) 8-[address] 1 tablet under the tongue daily. 08/06/2024 escitalopram (Lexapro) 20 MG tablet Take 1 tablet by mouth daily. 07/23/2024 gabapentin (Neurontin) 400 MG capsule Take 1 capsule by mouth 2 times a day. Vitamin D3 1.25 MG (80251 UT) capsule Take 1 capsule by mouth 1 time per week. 07/27/2024 documented as of this encounter Miscellaneous Notes * Brenda Cross - 11/13/2024 3:02 PM EDT Images from the original note were not included. 1639 Caring for Yourself after Contrast Imaging If you had ORAL contrast: ? You can go back to your normal diet and activities as tolerated. ? Drink plenty of fluids, unless told otherwise. If you had IV contrast: ? You can go back to your normal diet and activities as tolerated. ? Drink plenty of fluids, unless told otherwise. ? Leave a bandage on the site for 30 minutes (where the IV was inserted or blood was drawn). If you had Intravesical (bladder) contrast: ? Return to normal diet and activity. What you need to know about delayed reaction to IV contrast What is IV Contrast? ? Contrast is a dye that is put into your body through an IV. ? It is used for imaging scans such as CT scans and MRIs. ? The contrast makes blood vessels, organs and other parts of your body show up better on the scan. What do I need to do after IV contrast? ? Drink lots of fluids. This will help flush the contrast out of your system. ? Drink 2-3 extra glasses or bottles of water within 4 hours of your scan. What is a contrast reaction? ? A contrast reaction is a bad side effect from the contrast dye. ? It is rare but it does happen. ? They can be mild - such as sneezing, itching, or hives. ? They can be severe - such as trouble breathing, throat swelling, and irregular heart beat. When do these reactions happen? ? They often happen right after the contrast is injected. ? Some happen hours after going home. Go to the nearest Emergency Department right away if you have any of these symptoms after you leavethe clinic or hospital. ? Sneezing ? Itching in your mouth, throat, eyes, ears, or skin ? Rash or hives ? Throwing up or stomach sickness ? High heart rate or ?racing? of your heart ? Feeling dizzy or woozy ? Feeling short of breath or like you can?t take a deep breath ? Feeling very anxious for no other reason It is very important that these reactions be treated. Tell the doctor or nurse that you are having a reaction to IV contrast dye. Do not ignore any sign of a reaction! All reactions must be assessed by a doctor. Call 911 if you are alone and your reaction is more than mild sneezing or itching. If you have a mild reaction, call to speak with a Radiologist, explain that you havehad a contrast reaction, as this needs to be added to your medical record. documented in this encounter Plan of Treatment Upcoming Encounters Date Type Department Care Team (Late st Contact Info) Description 02/16/2025 11:00 AM EST Appointment [facility] Radiology [address] [place] [address] 02/16/2025 2:30 PM EST Office Visit [facility] [address] [place] [address] Viral Skaggs MD [address] [place] [address] documented as of this encounter Procedures Procedure Name Priority Date/Time Associated Diagnosis Comments CT ABDOMEN PELVIS W IV CONTRAST Routine 11/13/2024 3:11 PM EDT Anal cancer (CMS/HCC) CT CHEST W IV CONTRAST Routine 11/13/2024 3:11 PM EDT Anal cancer (CMS/HCC) Tobacco use Pulmonary nodule documented in this encounter Results * CT Abdomen Pelvis w IV Contrast (11/13/2024 3:11 PM EDT) Anatomical Region Laterality Modality Abdomen, Pelvis Computed Tomogra phy Impressions 11/14/2024 5:58 PM EDT Chest: Unchanged size of subcentimeter pulmonary nodules. New soft tissue surrounding the calcifications in the left perihilar region. This could represent worsening granulomatous/inflammatory process although metastatic disease to this location is a differential consideration. Abdomen/Pelvis: Apparent eccentric wall thickening of the left lateral wall of the lower rectum could be artifactual. However, local disease recurrence cannot be excluded. Advise evaluation with endoscopy. No local adenopathy. No metastatic disease in the abdomen and pelvis. CRITICAL RESULT: No. COMMUNICATION: Per this written report. By electronically signing this report, I, the attending physician, attest that I have personally reviewed the images/data for the above examination(s) and agree with the final edited report. Drafted by Marlon Lou MD on 11/13/2024 3:19 PM Final report signed by Mary Hirsch MD on 11/14/2024 5:58 PM Narrative 11/14/2024 5:58 PM EDT CLINICAL INDICATION: anal cancer TECHNIQUE: Multiple axial CT images were obtained from thoracic inlet through pubic symphysis following administration of IV contrast, Omnipaque 300, 100 mL. Reformatted images in the coronal and sagittal planes were generated from the axial data set to facilitate diagnostic accuracy. Total DLP (Dose-Length Product): 712.33 mGy. Please note: The reported value represents the total of one or more individual components during the CT acquisition on this date and at this time, and as such, the same value may appear in more than one CT report depending on the interpreting/reporting physicians. COMPARISON: Outside CT chest, abdomen and pelvis with IV contrast from 10/03/2023, outside CT chest with IV contrast from 09/04/2023 FINDINGS: Chest: Lymph Nodes and Mediastinum: There is new soft tissue surrounding calcifications seen in the left perihilar region. This measures approximately 18 mm in short axis on image 50 of series 2. There is also new left hilar lymphadenopathy measuring 8 mm in short axis that is contiguous to the calcification (image 52, series 2) Otherwise no lymphadenopathy by CT size criteria. No mediastinal mass. No suspicious thyroid findings. Cardiovascular: Right chest wall port with the catheter tip terminating within the right atrium. The heart is normal in caliber. Thoracic great vessels are patent. Lungs and Pleura: Unchanged size of multiple subcentimeter pulmonary nodules, for example; a right upper lobe nodule measuring 3 mm (series 4, image 94), a right lower lobe 3 mm nodule (series 4, image 188), and an additional peripheral right lower lobe nodule measuring 5 mm (series 4, image 274). Multiple calcified granulomas within the left lung. No new suspicious lung nodules to suggest metastatic disease. No pleural effusions or suspicious thickening. Musculoskeletal and Body Wall: No clearly aggressive bone lesions. No axillary lymphadenopathy. Abdomen/Pelvis: Liver, Gallbladder, Biliary Tract: No suspicious focal hepatic lesion. The liver contour and parenchymal enhancement are within normal limits. The gallbladder is surgically absent. Postcholecystectomy extrahepatic biliary ductal ectasia. No intrahepatic biliary ductal dilation. Spleen: The spleen is normal in size that suspicious focal lesion. Pancreas: No suspicious focal lesion. Pancreatic duct is nondilated. Adrenal Glands: No suspicious nodules bilaterally. Kidneys: No suspicious focal renal lesion. Unchanged size of a subcentimeter low attenuating left interpolar cortical based lesion, too small characterize. No hydronephrosis. Lymph Nodes: No lymphadenopathy by CT size criteria. Vasculature: The aortoiliac vasculature is normal in caliber and patent throughout demonstrating moderate atherosclerotic changes. GI Tract/Mesentery/Peritoneum: The large and small bowel appear normal in caliber. No evidence of inflammatory change. No obvious mass or asymmetry seen in the region of the anal canal. Collapsed rectum with apparent asymmetry of the left lateral wall which measures up to 13 mm on image 69, 70 of series 1, this could be artifactual due to collapsed state. No suspicious peritoneal/mesenteric findings. Pelvic Viscera: Urinary bladder is within normal limits. Postsurgical changes of prior hysterectomy.. No suspicious pelvic mass. Free Fluid: No ascites. Musculoskeletal and Body Wall: No clearly aggressive bone lesions. Redemonstrated severe intervertebral body height loss at the level of L5-S1. Procedure Note Mary Hirsch MD - 11/14/2024 CLINICAL INDICATION: anal cancer TECHNIQUE: Multiple axial CT images were obtained from thoracic inlet through pubicsymphysis following administration of IV contrast, Omnipaque 300, 100 mL.Reformatted images in the coronal and sagittal planes were generated fromthe axial data set to facilitate diagnostic accuracy. Total DLP (Dose-Length Product): 712.33 mGy. Please note: The reportedvalue represents the total of one or more individual components during theCT acquisition on this date and at this time, and as such, the same valuemay appear in more than one CT report depending on theinterpreting/reporting physicians. COMPARISON: Outside CT chest, abdomen and pelvis with IV contrast from 10/03/2023,outside CT chest with IV contrast from 09/04/2023 FINDINGS: Chest: Lymph Nodes and Mediastinum: There is new soft tissue surroundingcalcifications seen in the left perihilar region. This measuresapproximately 18 mm in short axis on image 50 of series 2. There is alsonew left hilar lymphadenopathy measuring 8 mm in short axis that iscontiguous to the calcification (image 52, series 2) Otherwise nolymphadenopathy by CT size criteria. No mediastinal mass. No suspiciousthyroid findings. Cardiovascular: Right chest wall port with the catheter tip terminatingwithin the right atrium. The heart is normal in caliber. Thoracic greatvessels are patent. Lungs and Pleura: Unchanged size of multiple subcentimeter pulmonarynodules, for example; a right upper lobe nodule measuring 3 mm (series 4,image 94), a right lower lobe 3 mm nodule (series 4, image 188), and anadditional peripheral right lower lobe nodule measuring 5 mm (series 4,image 274). Multiple calcified granulomas within the left lung. No newsuspicious lung nodules to suggest metastatic disease. No pleuraleffusions or suspicious thickening. Musculoskeletal and Body Wall: No clearly aggressive bone lesions. Noaxillary lymphadenopathy. Abdomen/Pelvis: Liver, Gallbladder, Biliary Tract: No suspicious focal hepatic lesion. Theliver contour and parenchymal enhancement are within normal limits. Thegallbladder is surgically absent. Postcholecystectomy extrahepatic biliaryductal ectasia. No intrahepatic biliary ductal dilation. Spleen: The spleen is normal in size that suspicious focal lesion. Pancreas: No suspicious focal lesion. Pancreatic duct is nondilated. Adrenal Glands: No suspicious nodules bilaterally. Kidneys: No suspicious focal renal lesion. Unchanged size of asubcentimeter low attenuating left interpolar cortical based lesion, toosmall characterize. No hydronephrosis. Lymph Nodes: No lymphadenopathy by CT size criteria. Vasculature: The aortoiliac vasculature is normal in caliber and patentthroughout demonstrating moderate atherosclerotic changes. GI Tract/Mesentery/Peritoneum: The large and small bowel appear normal incaliber. No evidence of inflammatory change. No obvious mass or asymmetryseen in the region of the anal canal. Collapsed rectum with apparentasymmetry of the left lateral wall which measures up to 13 mm on image 69,70 of series 1, this could be artifactual due to collapsed state. Nosuspicious peritoneal/mesenteric findings. Pelvic Viscera: Urinary bladder is within normal limits. Postsurgicalchanges of prior hysterectomy.. No suspicious pelvic mass. Free Fluid: No ascites. Musculoskeletal and Body Wall: No clearly aggressive bone lesions.Redemonstrated severe intervertebral body height loss at the level ofL5-S1. IMPRESSION: Chest: Unchanged size of subcentimeter pulmonary nodules. New soft tissuesurrounding the calcifications in the left perihilar region. This couldrepresent worsening granulomatous/inflammatory process although metastaticdisease to this location is a differential consideration. Abdomen/Pelvis: Apparent eccentric wall thickening of the left lateralwall of the lower rectum could be artifactual. However, local diseaserecurrence cannot be excluded. Advise evaluation with endoscopy. No localadenopathy. No metastatic disease in the abdomen and pelvis. CRITICAL RESULT: No. COMMUNICATION: Per this written report. By electronically signing this report, I, the attending physician, attestthat I have personally reviewed the images/data for the aboveexamination(s) and agree with the final edited report. Drafted by Marlon Lou MD on 11/13/2024 3:19 PM Final report signed by Mary Hirsch MD on 11/14/2024 5:58 PM us Viral Skaggs MD IMG CT PROCEDURES Final Result * CT Chest w IV Contrast (11/13/2024 3:11 PM EDT) Anatomical Region Laterality Modality Chest Computed Tomogra phy Impressions 11/14/2024 5:58 PM EDT Chest: Unchanged size of subcentimeter pulmonary nodules. New soft tissue surrounding the calcifications in the left perihilar region. This could represent worsening granulomatous/inflammatory process although metastatic disease to this location is a differential consideration. Abdomen/Pelvis: Apparent eccentric wall thickening of the left lateral wall of the lower rectum could be artifactual. However, local disease recurrence cannot be excluded. Advise evaluation with endoscopy. No local adenopathy. No metastatic disease in the abdomen and pelvis. CRITICAL RESULT: No. COMMUNICATION: Per this written report. By electronically signing this report, I, the attending physician, attest that I have personally reviewed the images/data for the above examination(s) and agree with the final edited report. Drafted by Marlon Lou MD on 11/13/2024 3:19 PM Final report signed by Mary Hirsch MD on 11/14/2024 5:58 PM Narrative 11/14/2024 5:58 PM EDT CLINICAL INDICATION: anal cancer TECHNIQUE: Multiple axial CT images were obtained from thoracic inlet through pubic symphysis following administration of IV contrast, Omnipaque 300, 100 mL. Reformatted images in the coronal and sagittal planes were generated from the axial data set to facilitate diagnostic accuracy. Total DLP (Dose-Length Product): 712.33 mGy. Please note: The reported value represents the total of one or more individual components during the CT acquisition on this date and at this time, and as such, the same value may appear in more than one CT report depending on the interpreting/reporting physicians. COMPARISON: Outside CT chest, abdomen and pelvis with IV contrast from 10/03/2023, outside CT chest with IV contrast from 09/04/2023 FINDINGS: Chest: Lymph Nodes and Mediastinum: There is new soft tissue surrounding calcifications seen in the left perihilar region. This measures approximately 18 mm in short axis on image 50 of series 2. There is also new left hilar lymphadenopathy measuring 8 mm in short axis that is contiguous to the calcification (image 52, series 2) Otherwise no lymphadenopathy by CT size criteria. No mediastinal mass. No suspicious thyroid findings. Cardiovascular: Right chest wall port with the catheter tip terminating within the right atrium. The heart is normal in caliber. Thoracic great vessels are patent. Lungs and Pleura: Unchanged size of multiple subcentimeter pulmonary nodules, for example; a right upper lobe nodule measuring 3 mm (series 4, image 94), a right lower lobe 3 mm nodule (series 4, image 188), and an additional peripheral right lower lobe nodule measuring 5 mm (series 4, image 274). Multiple calcified granulomas within the left lung. No new suspicious lung nodules to suggest metastatic disease. No pleural effusions or suspicious thickening. Musculoskeletal and Body Wall: No clearly aggressive bone lesions. No axillary lymphadenopathy. Abdomen/Pelvis: Liver, Gallbladder, Biliary Tract: No suspicious focal hepatic lesion. The liver contour and parenchymal enhancement are within normal limits. The gallbladder is surgically absent. Postcholecystectomy extrahepatic biliary ductal ectasia. No intrahepatic biliary ductal dilation. Spleen: The spleen is normal in size that suspicious focal lesion. Pancreas: No suspicious focal lesion. Pancreatic duct is nondilated. Adrenal Glands: No suspicious nodules bilaterally. Kidneys: No suspicious focal renal lesion. Unchanged size of a subcentimeter low attenuating left interpolar cortical based lesion, too small characterize. No hydronephrosis. Lymph Nodes: No lymphadenopathy by CT size criteria. Vasculature: The aortoiliac vasculature is normal in caliber and patent throughout demonstrating moderate atherosclerotic changes. GI Tract/Mesentery/Peritoneum: The large and small bowel appear normal in caliber. No evidence of inflammatory change. No obvious mass or asymmetry seen in the region of the anal canal. Collapsed rectum with apparent asymmetry of the left lateral wall which measures up to 13 mm on image 69, 70 of series 1, this could be artifactual due to collapsed state. No suspicious peritoneal/mesenteric findings. Pelvic Viscera: Urinary bladder is within normal limits. Postsurgical changes of prior hysterectomy.. No suspicious pelvic mass. Free Fluid: No ascites. Musculoskeletal and Body Wall: No clearly aggressive bone lesions. Redemonstrated severe intervertebral body height loss at the level of L5-S1. Procedure Note Mary Hirsch MD - 11/14/2024 CLINICAL INDICATION: anal cancer TECHNIQUE: Multiple axial CT images were obtained from thoracic inlet through pubicsymphysis following administration of IV contrast, Omnipaque 300, 100 mL.Reformatted images in the coronal and sagittal planes were generated fromthe axial data set to facilitate diagnostic accuracy. Total DLP (Dose-Length Product): 712.33 mGy. Please note: The reportedvalue represents the total of one or more individual components during theCT acquisition on this date and at this time, and as such, the same valuemay appear in more than one CT report depending on theinterpreting/reporting physicians. COMPARISON: Outside CT chest, abdomen and pelvis with IV contrast from 10/03/2023,outside CT chest with IV contrast from 09/04/2023 FINDINGS: Chest: Lymph Nodes and Mediastinum: There is new soft tissue surroundingcalcifications seen in the left perihilar region. This measuresapproximately 18 mm in short axis on image 50 of series 2. There is alsonew left hilar lymphadenopathy measuring 8 mm in short axis that iscontiguous to the calcification (image 52, series 2) Otherwise nolymphadenopathy by CT size criteria. No mediastinal mass. No suspiciousthyroid findings. Cardiovascular: Right chest wall port with the catheter tip terminatingwithin the right atrium. The heart is normal in caliber. Thoracic greatvessels are patent. Lungs and Pleura: Unchanged size of multiple subcentimeter pulmonarynodules, for example; a right upper lobe nodule measuring 3 mm (series 4,image 94), a right lower lobe 3 mm nodule (series 4, image 188), and anadditional peripheral right lower lobe nodule measuring 5 mm (series 4,image 274). Multiple calcified granulomas within the left lung. No newsuspicious lung nodules to suggest metastatic disease. No pleuraleffusions or suspicious thickening. Musculoskeletal and Body Wall: No clearly aggressive bone lesions. Noaxillary lymphadenopathy. Abdomen/Pelvis: Liver, Gallbladder, Biliary Tract: No suspicious focal hepatic lesion. Theliver contour and parenchymal enhancement are within normal limits. Thegallbladder is surgically absent. Postcholecystectomy extrahepatic biliaryductal ectasia. No intrahepatic biliary ductal dilation. Spleen: The spleen is normal in size that suspicious focal lesion. Pancreas: No suspicious focal lesion. Pancreatic duct is nondilated. Adrenal Glands: No suspicious nodules bilaterally. Kidneys: No suspicious focal renal lesion. Unchanged size of asubcentimeter low attenuating left interpolar cortical based lesion, toosmall characterize. No hydronephrosis. Lymph Nodes: No lymphadenopathy by CT size criteria. Vasculature: The aortoiliac vasculature is normal in caliber and patentthroughout demonstrating moderate atherosclerotic changes. GI Tract/Mesentery/Peritoneum: The large and small bowel appear normal incaliber. No evidence of inflammatory change. No obvious mass or asymmetryseen in the region of the anal canal. Collapsed rectum with apparentasymmetry of the left lateral wall which measures up to 13 mm on image 69,70 of series 1, this could be artifactual due to collapsed state. Nosuspicious peritoneal/mesenteric findings. Pelvic Viscera: Urinary bladder is within normal limits. Postsurgicalchanges of prior hysterectomy.. No suspicious pelvic mass. Free Fluid: No ascites. Musculoskeletal and Body Wall: No clearly aggressive bone lesions.Redemonstrated severe intervertebral body height loss at the level ofL5-S1. IMPRESSION: Chest: Unchanged size of subcentimeter pulmonary nodules. New soft tissuesurrounding the calcifications in the left perihilar region. This couldrepresent worsening granulomatous/inflammatory process although metastaticdisease to this location is a differential consideration. Abdomen/Pelvis: Apparent eccentric wall thickening of the left lateralwall of the lower rectum could be artifactual. However, local diseaserecurrence cannot be excluded. Advise evaluation with endoscopy. No localadenopathy. No metastatic disease in the abdomen and pelvis. CRITICAL RESULT: No. COMMUNICATION: Per this written report. By electronically signing this report, I, the attending physician, rohan I have personally reviewed the images/data for the aboveexamination(s) and agree with the final edited report. Drafted by Marlon Lou MD on 11/13/2024 3:19 PM Final report signed by Mary Hirsch MD on 11/14/2024 5:58 PM Viral Skaggs MD IMG CT PROCEDURES Final Result documented in this encounter Visit Diagnoses Diagnosis Anal cancer (CMS/HCC) Malignant neoplasm of anus, unspecified site Tobacco use Pulmonary nodule Other diseases of lung, not elsewhere classified documented in this encounter Administered Medications Inactive Administered Medications - up to 3 most recent administrations Medication Order MAR Action Action Date Dose Rate Site iohexol (OMNIPaque) 300 MG/ML injection 100 mL 100 mL, Intravenous, Once in imaging, 1 dose, Starting on Sat11/13/24 at 1423, Until Sat11/13/24 at 1502, Routine, Imaging Protocol Orders Given 11/13/2024 3:02 PM EDT 100 mL iohexol (OMNIPaque) 9 MG/ML oral contrast 500 mL 500 mL, Oral, Once in imaging, 1 dose, Starting on Sat11/13/24 at 1423, Until Sat11/13/24 at 1435, Routine, Imaging Protocol Orders Given 11/13/2024 2:35 PM EDT 500 mL documented in this encounter Additional Health Concerns Assessment Noted Time A fall risk assessment has been complete d for the patient 08/11/2024 2:03 PM EDT A Body Mass Index follow-up plan has been documented for the patient 08/21/2024 9:25 AM EDT documented as of this encounter Care Teams Production Coordinator Relationship Specialty Start Date End Date Fernanda Barillas APRN [address] [place] [address] PCP - General 08/05/20 documented as of this encounter
[2025-01-09 15:45] VITALS: BP 124/72; PULSE 74; RESP 18; TEMP 36.6; O2SAT 97; BMI 32.1
--- OUTSIDE RECORDS SUMMARY | 2025-01-09 15:45 | XMS_ITS | Encounter Summary ---
Author Organization Healthcare Address [address] [place] [address] Care Team Providers Care Information Technology Administrator Name Role Phone Fernanda Barillas BRYANT Primary Care Provider +1- [phone] Encounter Details Date Type Department Care Team (Late Contact Info) Description 01/09/2023 Orders Only External Location [address] [place] [address] Provider, External Social History Tobacco Use Types [...] Upcoming Encounters Date Type Department Care Team ([facility] Contact Info) Description 02/16/2025 11:00 AM EST Appointment [facility] S Radiology [address], [address]st [place] [address] 02/16/2025 2:30 PM EST Office Visit [facility] [address] [place] [address] Viral Skaggs MD [address] [facility] [address] [place] [address] documented as of this encounter Procedures Procedure [...] on filedocumented in this encounter Care Teams Information Technology Administrator Relationship Specialty Start Date End Date Fernanda Barillas APRN [address] [place] [address] PCP - General 08/05/20 documented as of this encounter
--- OUTSIDE RECORDS SUMMARY | 2025-01-09 15:45 | XMS_ITS | Encounter Summary ---
Author Organization Healthcare Address [address] [place] [address] Care Team Providers Care Digital Imager Name Role Phone Barillas Fernandakarishma oRss APRN Primary Care Provider +1- [phone] Sherron Duckworth EASTERN PHILOSOPHY PROFESSOR Unavailable Unavailable Encounter Details Date Type Department Care Team (Late st Contact Info) Description 11/01/2008 Orders Only External Location [address] [place] [address] Provider, External Social History Tobacco Use Types [...] S Radiology [address]st [place] [address] 02/16/2025 2:30 PM EST Office Visit [facility] [address] [place] [address] Viral Skaggs MD [address] [place] [address] documented as of this encounter [...] on filedocumented in this encounter Care Teams Digital Imager Relationship Specialty Start Date End Date Fernanda Barillas APRN [address] [place] [address] PCP - General 08/05/20 Sherron Duckworth, [place] [address] Product Consultant Parcel Post Carrier 06/20/21 06/20/21 documented as of this encounter
--- OUTSIDE RECORDS SUMMARY | 2025-01-09 15:45 | XMS_ITS | Encounter Summary ---
Author Organization Healthcare Address [address] [place] [address] Care Team Providers Care Human Factors Ergonomist Name Role Phone Fernanda Barillas BRYANT Primary Care Provider +1- [phone] Encounter Details Date Type Department Care Team (Late Contact Info) Description 01/28/2023 Orders Only External Location [address] [place] [address] Provider, External Social History Tobacco Use Types [...] Upcoming Encounters Date Type Department Care Team ([facility] Contact Info) Description 02/16/2025 11:00 AM EST Appointment [facility] S Radiology [address], 1st [place] [address] 02/16/2025 2:30 PM EST Office Visit [facility] [address] [place] [address] Viral Skaggs MD [address] [facility] [address] [place] [address] documented as of this encounter Procedures Procedure [...] on filedocumented in this encounter Care Teams Human Factors Ergonomist Relationship Specialty Start Date End Date Fernanda Barillas APRN [address] [place] [address] PCP - General 08/05/20 documented as of this encounter
--- OUTSIDE RECORDS SUMMARY | 2025-01-09 15:46 | XMS_ITS | Encounter Summary ---
Author Organization Healthcare Address [address] [place] [address] Care Team Providers Care Doughnut Glazier Name Role Phone Fernanda Barillas BRYANT Primary Care Provider +1- [phone] Encounter Details Date Type Department Care Team [...] S Radiology [address], [address]st [place] [address] 02/16/2025 2:30 PM EST Office Visit [facility] [address] [place] [address] Viral Skaggs MD [address] [place] [address] documented as of this encounter Visit Diagnoses Not on filedocumented in this encounter Additional Health Concerns Assessment Noted Time A fall risk assessment has been complete d for the patient 08/11/2024 2:03 PM EDT A Body Mass Index follow-up plan has been documented for the patient 08/21/2024 9:25 AM EDT documented as of this encounter Care Teams Doughnut Glazier Relationship Specialty Start Date End Date Fernanda Barillas APRN [address] [place] [address] PCP - General 08/05/20 documented as of this encounter
--- OUTSIDE RECORDS SUMMARY | 2025-01-09 15:46 | XMS_ITS | Encounter Summary ---
Author Organization Healthcare Address [address] [place] [address] Care Team Providers Care Community Resource Officer Name Role Phone Fernanda Barillas BRYANT Primary Care Provider +1- [phone] Encounter Details Date Type Department Care Team (Late Contact Info) Description 11/01/2022 Orders Only External Location [address] [place] [address] Provider, External Social History Tobacco Use Types [...] Upcoming Encounters Date Type Department Care Team ([facility] Contact Info) Description 02/16/2025 11:00 AM EST Appointment [facility] S Radiology [address], [address]st [place] [address] 02/16/2025 2:30 PM EST Office Visit [facility] [address] [place] [address] Viral Skaggs MD [address] [facility] [address] [place] [address] documented as of this encounter Procedures Procedure [...] on filedocumented in this encounter Care Teams Community Resource Officer Relationship Specialty Start Date End Date Fernanda Barillas APRN [address] [place] [address] PCP - General 08/05/20 documented as of this encounter
--- OUTSIDE RECORDS SUMMARY | 2025-01-09 15:46 | XMS_ITS | Encounter Summary ---
Author Organization [facility] Address [address] [place] [address] Care Team Providers Care High School Music Director Name Role Phone Fernanda Barillas APRN Primary Care Provider +1- [phone] Encounter Details Date Type Department Care Team (Late st Contact Info) Description 08/06/2024 Lab Requisition [facility] Lab [address] [place] [address] Viral Skaggs MD [address] [phone] Unspecified malignant neoplasm of skin, unspecified Social [...] S Radiology [address], 1st [place] [address] 02/16/2025 2:30 PM EST Office Visit [facility] [address] [place] [address] Viral Skaggs MD [facility] [address] [address] documented as of this encounter Procedures Procedure Name Priority Date/Time Associated Diagnosis Comments SURGICAL PATHOLOGY CONSULT Routine 08/06/2024 12:31 PM EDT Unspecified malignant neoplasm of skin, unspecified documented in this encounter Results * Surgical Pathology Consult (08/06/2024 12:31 PM EDT) Case Report Sugical Pathology Consult Case: [id number] Authorizing Provider: Viral Skaggs MD Collected: 08/06/2024 1231 Ordering Location: [facility] Lab Received: 08/06/2024 1231 Pathologist: Maritza Reynoso MD Specimen: Skin, [id number] 08/07/2024 9:53 AM EDT [facility] Final Diagnosis RIGHT ANTERIOR PERIANAL SKIN, BIOPSY ([id number]; 03/13/2024): - AN AREA OF HIGH-GRADE SQUAMOUS INTRAEPITHELIAL LESION IDENTIFIED. - NEGATIVE FOR INVASIVE CARCINOMA. PERINEAL BODY SKIN, BIOPSY ([id number]; 03/13/2024): - NEGATIVE FOR HIGH-GRADE SQUAMOUS INTRAEPITHELIAL LESION. LEFT PERINEAL SKIN, BIOPSY ([id number] C; 03/13/2024): - NEGATIVE FOR HIGH-GRADE SQUAMOUS INTRAEPITHELIAL LESION. 08/07/2024 9:53 AM EDT [facility] at 0953 EDT Clinical Information C44.90 - Unspecified malignant neoplasm of skin, unspecified [ICD-10-CM] 08/07/2024 9:53 AM EDT [facility] Gross Description A. [id number] Received along with a corresponding pathology report from [facility] are 15 slide(s) labeled outside case: [id number] collected on 03/13/2024. 08/07/2024 9:53 AM EDT [facility] Note: A resident was involved in the service. I attest I examined the relevant preparations for the specimens and confirmed the diagnosis or interpretation. 08/07/2024 9:53 AM EDT [facility] Tissue Skin structure / Unknown 08/06/2024 12:31 PM EDT 08/06/2024 12:31 PM EDT Viral Skaggs MD LAB PATHOLOGY ORDERABLES Final Result [facility] [address] [place] [address] documented in this encounter Visit Diagnoses Diagnosis Unspecified malignant neoplasm of skin, unspecified documented in this encounter Care Teams High School Music Director Relationship Specialty Start Date End Date Fernanda Barillas, MOLDING ROOM SUPERVISOR [address] [place] [address] PCP - General 08/05/20 documented as of this encounter
--- OUTSIDE RECORDS SUMMARY | 2025-01-09 15:46 | XMS_ITS | Clinical Summary ---
Author Organization [facility] Address [address] [place] [address] Care Team Providers Care Line Service Person Name Role Phone None, Physician Primary Care [...] been provided with Provera tablets by the longterm medical provider without change in her symptoms, bleeding currently accompanied by pelvic pain and pressure. 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 She has been provided with Provera tablets by the longterm medical provider without change in her symptoms, [...] AM EDT) Anatomical Region Laterality Modality Breast [facility] Mammogra phy 12/24/2023 9:26 AM EDT Narrative 12/24/2023 9:31 AM EDT [facility] FOR DISCUSSING THOSE RESULTS WITH YOUR HEALTH CARE PROVIDER. PLEASE [facility] YOUR PROVIDER [facility] TO DISCUSS ANY QUESTIONS OR CONCERNS YOU MAY HAVE REGARDING THESE TEST RESULTS. RADIOLOGY REPORT FACILITY: [facility] UNIT/AGE/GENDER: RANJANA OP AGE:48 Y SEX:F PATIENT NAME/: MARIA C GRIMALDO 1975 UNIT NUMBER: [id number] ACCESSION NUMBER: [id number] Examination: Bilateral Digital Diagnostic Mammogram with Tomosynthesis [...] compared to prior imaging studies performed at [facility] on 10/02/2022 and 11/13/2022. Findings: Bilateral [...] - 12/24/2023 REVIEWING YOUR TEST RESULTS IN [facility] IS NOT A SUBSTITUTE FORDISCUSSING THOSE RESULTS WITH YOUR HEALTH CARE PROVIDER. PLEASE CONTACT YOUR PROVIDER [facility] TO DISCUSS ANY QUESTIONS ORCONCERNS YOU MAY HAVE REGARDING THESE TEST RESULTS. RADIOLOGY REPORT FACILITY: [facility] UNIT/AGE/GENDER: RANJANA OP AGE:48 Y SEX:F PATIENT NAME/: MARIA C GRIMALDO 1975 UNIT NUMBER: [id number] ACCESSION NUMBER: [id number] Examination: Bilateral Digital Diagnostic Mammogram with Tomosynthesis [...] compared to prior imaging studies performed at [facility] on 10/02/2022 and 11/13/2022. Findings: Bilateral [...] Williamson M.D.> 12/24/2023928 [id number] [id number] Natacha Felicita CASING TIER [facility] MAMMOGRAPHY ORDERABLES Final Result from Last 3 Months or Most Recently Relevant to Health Maintenance Insurance * Guarantor: Maria C Grimaldo Account Type Relation to Patient Date of Phone Billing Address Personal/Family Self 1975 [phone] (Home) [address] [place] [address] [facility] * Guarantor: Maria C Grimaldo Account Type Relation to Patient Date of Phone Billing Address [facility] Self 1975 [phone] (Home) [address] [place] [address] Care Teams Line Service Person Relationship Specialty Start Date End Date None, Physician PCP - General 07/30/23
--- OUTSIDE RECORDS SUMMARY | 2025-01-09 15:46 | XMS_ITS | Encounter Summary ---
Author Organization Healthcare Address [address] [place] [address] Care Team Providers Care Superior Court Judge Name Role Phone Fernanda Barillas BRYANT Primary Care Provider +1- [phone] Encounter Details Date Type Department Care Team (Late Contact Info) Description 01/09/2023 Orders Only External Location [address] [place] [address] Provider, External Social History Tobacco Use Types [...] S Radiology [address], [address]st [place] [address] 02/16/2025 2:30 PM EST Office Visit [facility] [address] [place] [address] Viral Skaggs MD [address] [facility] [address] [place] [address] documented as of this encounter Procedures Procedure [...] on filedocumented in this encounter Care Teams Superior Court Judge Relationship Specialty Start Date End Date Fernanda Barillas APRN [address] [place] [address] PCP - General 08/05/20 documented as of this encounter
--- OUTSIDE RECORDS SUMMARY | 2025-01-09 15:46 | XMS_ITS | Encounter Summary ---
Author Organization Healthcare Address [address] [place] [address] Care Team Providers Care Lead Military Analyst Name Role Phone Fernanda Barillas BRYANT Primary Care Provider +1- [phone] Encounter Details Date Type Department Care Team (Late Contact Info) Description 09/04/2023 Orders Only External Location [address] [place] [address] Provider, External Social History Tobacco Use Types [...] Date Type Department Care Team ([facility] Contact Info) Description 02/16/2025 11:00 AM EST Appointment [facility] S Radiology [address]st [place] [address] 02/16/2025 2:30 PM EST Office Visit [facility] [address] [place] [address] Viral Skaggs MD [address] [facility] [address] [place] [address] documented as of this encounter Procedures Procedure [...] on filedocumented in this encounter Care Teams Lead Military Analyst Relationship Specialty Start Date End Date Fernanda Barillas APRN [address] [place] [address] PCP - General 08/05/20 documented as of this encounter
--- OUTSIDE RECORDS SUMMARY | 2025-01-09 15:46 | XMS_ITS | Encounter Summary ---
Author Organization [facility] Address [address] [place] [address] Care Team Providers Care Animal Attendants And Trainers Name Role Phone Fernanda Barillas APRN Primary Care Provider +1- [phone] Encounter Details Date Type Department Care Team (Late Contact Info) Description 08/12/2024 Lab Requisition [facility] Lab [address] [place] [address] Viral Skaggs MD [address] [address] Polyp of colon Social History [...] [facility] Radiology [address] [place] [address] 02/16/2025 2:30 PM EST Office Visit [facility] [address] [place] [address] Viral Skaggs MD [address] [address] documented as of this encounter Procedures Procedure Name Priority Date/Time Associated Diagnosis Comments SURGICAL PATHOLOGY CONSULT Routine 08/12/2024 2:09 PM EDT Polyp of colon documented in this encounter Results * Surgical Pathology Consult (08/12/2024 2:09 PM EDT) Case Report Sugical Pathology Consult Case: [id number] Authorizing Provider: Viral Skaggs MD Collected: 08/12/20249 Ordering Location: [facility] Lab Received: 08/12/2024 1409 Pathologist: Clark Cornejo MD Specimen: Colon, [id number] 08/14/2024 8:12 AM EDT [facility] Final Diagnosis (OUTSIDE CASE: [id number], COLLECTED ON 12/12/2022): TRANSVERSE COLON, POLYP, BIOPSY (A): - BENIGN LYMPHOID AGGREGATE; NEGATIVE FOR DYSPLASIA PERIANAL MASS, BIOPSY (B): - INVASIVE SQUAMOUS CELL CARCINOMA, VARIABLY KERATINIZING 08/14/2024 8:12 AM EDT [facility] at 0812 EDT Clinical Information K63.5 - Polyp of colon [ICD-10-CM] 08/14/2024 8:12 AM EDT [facility] Gross Description A. [id number] Received along with a corresponding pathology report from [facility] are 7 slide(s) labeled outside case: [id number] collected on 12/12/2022. 08/14/2024 8:12 AM EDT [facility] Tissue Colon structure / Unknown 08/12/2024 2:09 PM EDT 08/12/2024 2:09 PM EDT us Viral Skaggs MD LAB PATHOLOGY ORDERABLES Final Result [facility] [address] [place] [address] documented in this encounter Visit Diagnoses Diagnosis Polyp of colon Benign neoplasm of colon documented in this encounter Additional Health Concerns Assessment Noted Time A fall risk assessment has been complete d for the patient 08/11/2024 2:03 PM EDT A Body Mass Index follow-up plan has been documented for the patient 08/21/2024 9:25 AM EDT documented as of this encounter Care Teams Animal Attendants And Trainers Relationship Specialty Start Date End Date Fernanda Barillas APRN [address] [place] [address] PCP - General 08/05/20 documented as of this encounter
--- OUTSIDE RECORDS SUMMARY | 2025-01-09 15:46 | XMS_ITS | Encounter Summary ---
Author Organization Healthcare Address [address] [place] [address] Care Team Providers Care Screening Unit Registered Nurse Name Role Phone Fernanda Barillsa BRYANT Primary Care Provider +1- [phone] Encounter Details Date Type Department Care Team [...] S Radiology [address], [address] [place] [address] 02/16/2025 2:30 PM EST Office Visit [facility] [address] [place] [address] Viral Skaggs MD [address] [place] [address] documented as of this encounter Visit Diagnoses Not on filedocumented in this encounter Additional Health Concerns Assessment Noted Time A fall risk assessment has been complete d for the patient 08/11/2024 2:03 PM EDT A Body Mass Index follow-up plan has been documented for the patient 08/21/2024 9:25 AM EDT documented as of this encounter Care Teams Screening Unit Registered Nurse Relationship Specialty Start Date End Date Fernanda Barillas APRN [address] [place] [address] PCP - General 08/05/20 documented as of this encounter
--- OUTSIDE RECORDS SUMMARY | 2025-01-09 15:46 | XMS_ITS | Encounter Summary ---
Author Organization [facility] Address [address] [place] [address] Care Team Providers Care Security Rep Name Role Phone Fernanda Barillas APRN Primary Care Provider +1- [phone] Encounter Details Date Type Department Care Team (Late st Contact Info) Description 10/30/2024 Telephone [facility] [address] [place] [address] Viral Skaggs MD [address] [facility] [address] [place] [address] Social History Tobacco Use Types Packs/Day Years [...] optimal time of day to reach caller: [phone] Note: Please do not reply to this message. Follow-up communication and further actions as a result of this message need to be communicated with the patient directly, if the patient is not active onMyChart. If the patient is active on MyChart, they will receive notification of the communication/outcome via [employer]. documented in this encounter Plan of Treatment Upcoming Encounters Date Type Department Care Team (Late st Contact Info) Description 02/16/2025 11:00 AM EST Appointment [facility] [address], [address] [place] [address] 02/16/2025 2:30 PM EST Office [facility] [address] [place] [address] Viral Skaggs MD [address] [facility] [address] [place] [address] documented as of this encounter Visit Diagnoses Not on filedocumented in this encounter Additional Health Concerns Assessment Noted Time A fall risk assessment has been complete d for the patient 08/11/2024 2:03 PM EDT A Body Mass Index follow-up plan has been documented for the patient 08/21/2024 9:25 AM EDT documented as of this encounter Care Teams Security Rep Relationship Specialty Start Date End Date Fernanda Barillas, WET CHAR CONVEYOR TENDER [address] [place] [address] PCP - General 08/05/20 documented as of this encounter
--- OUTSIDE RECORDS SUMMARY | 2025-01-09 15:46 | XMS_ITS | Clinical Summary ---
Author Organization [facility] Address [address] [place] [address] Care Team Providers Care Technical Program Manager Name Role Phone Barillas Fernandakarishma Ross APRN Primary Care Provider +1- [phone] Allergies No known active allergies Medications albuterol 108 (90 Base) MCG/ACT inhaler Inhale 1 puff every 4 hours. 07/23/2024 Active buprenorphine-n aloxone (Suboxone) 8-[address] 1 tablet under the tongue daily. 08/06/2024 Active Vitamin D3 1.25 MG (79657 UT) capsule Take 1 capsule by mouth [...] - 11/13/2024 11:59 PM EDT Hospital Encounter [facility] [address] [place] [address] Anal cancer (CMS/HCC); Tobacco use; Pulmonary nodule Discharge Disposition: Home or Self Care 11/13/2024 Travel 11/12/2024 Travel 10/30/2024 Telephone [facility] [address] [place] [address] Viral Skaggs MD from Last 3 Months Social History Tobacco [...] AM EST Appointment [facility] [address] [place] [address] 02/16/2025 2:30 PM EST Office Visit [facility] Multidisciplinary Oncology Clinic [address] [place] [address] Viral Skaggs MD [address] [place] [address] Health Maintenance Due Date Last Done Comments [...] (2 - Td or Tdap) 05/24/2024 05/24/2014 [id number] Vaccine (3 - season) 2024 02/13/2024, 08/10/2020 [...] Screen Nonreactive Nonreactive 06/20/2021 4:07 PM EDT [facility] Blood Venous blood specimen / Unknown Venipuncture / Unknown 06/20/2021 2:04 PM EDT 06/20/2021 2:18 PM EDT Trice Doe MD LAB BLOOD ORDERABLES Final Res ult [facility] [address] [place] [address] * (ABNORMAL) [place] Hepatitis C Antibody (06/20/2021 2:04 PM EDT) Hepatitis C Antibody Positive( A) Negative 06/20/2021 4:53 PM EDT [facility] Comment:This specimen is angel ng sent for confirmation by RT-PCR. Blood Venous blood specimen / Unknown Venipuncture / Unknown 06/20/2021 2:04 PM EDT 06/20/2021 2:18 PM EDT us Trice Doe MD LAB BLOOD ORDERABLES Final Res ult Performing Organization Address City/[facility]/ZIP Co de Phone Number [facility]ALTH[facility] [address] [place] [address] from Last 3 Months or Most Recently Relevant to Health Maintenance Insurance [employer] [facility] MEDICAID Advance Directives * Full Code (Latest Code Status on File) Date Activated Date Inactivated Comments 06/20/2021 4:30 PM 06/21/2021 10:05 PM Question Answer Comments Patient has decision-making capacity? Yes Care Teams Technical Program Manager Relationship Specialty Start Date End Date Fernanda Barillas APRN [address] [place] [address] [facility] 08/05/20
--- OUTSIDE RECORDS SUMMARY | 2025-01-09 15:46 | XMS_ITS | Encounter Summary ---
Author Organization Healthcare Address [address] [place] [address] Care Team Providers Care Fundraising Director Name Role Phone Fernanda Barillas BRYANT Primary Care Provider +1- [phone] Encounter Details Date Type Department Care Team (Late Contact Info) Description 10/03/2023 Orders Only External Location [address] [place] [address] Provider, External Social History Tobacco Use Types [...] Upcoming Encounters Date Type Department Care Team ([facility] Contact Info) Description 02/16/2025 11:00 AM EST Appointment [facility] S Radiology [address], [address] [place] [address] 02/16/2025 2:30 PM EST Office Visit [facility] [address] [place] [address] Viral Skaggs MD [address] [facility] [address] [place] [address] documented as of this encounter Procedures Procedure [...] on filedocumented in this encounter Care Teams Fundraising Director Relationship Specialty Start Date End Date Fernanda Barillas APRN [address] [place] [address] PCP - General 08/05/20 documented as of this encounter
--- NOTE | 2025-01-09 15:57 | XR_ITS ---
PROCEDURE INFORMATION: Exam: XR Right Hand Exam date and time: 01/09/2025 3:53 PM Age: 49 years old Clinical indication: Pain; Finger(s); Right; Additional info: Thumb and 3rd digit pain and catching TECHNIQUE: Imaging protocol: Radiologic exam of the right hand. Views: 3 or more views. Total images: 3 COMPARISON: No relevant prior studies available. FINDINGS: Bones/joints: No evidence of acute fracture or dislocation. Soft tissues: Soft tissues are within normal limits. IMPRESSION: No evidence of acute fracture or dislocation.
[2025-01-09 16:15] VITALS: BP 109/68; PULSE 72; O2SAT 97
[2025-01-09 16:45] VITALS: BP 110/73; PULSE 70; O2SAT 96
[2025-01-09 17:15] VITALS: BP 108/66; PULSE 61; O2SAT 98
[2025-01-09 18:00] VITALS: BP 140/78; PULSE 80; RESP 20; TEMP 36.8; O2SAT 98
--- NOTE | 2025-01-09 20:14 | ED_ITS ---
<Statement entered by Aron Huston MD - 01/10/25 02:14> I was consulted by the UZMA, and we discussed the complexity of the problems being addressed. I approve the treatment and management plan for this patient's care in the emergency department, thus performing a substantive portion of the medical decision making. Aron Huston MD Discharge Plan Disposition Patient Disposition: Home, Self-Care Condition: Good Prescriptions Prescriptions: No Action polyethylene glycol 3350 [Miralax] 17 gram/dose powder 17 g PO DAILY Metamucil 3.4 gram/5.4 gram powder 1 tbsp PO DAILY Rx Instructions: mix into at least 8 oz of water or juice before administering buprenorphine-naloxone 8-2 mg tablet, sublingual sublingual Patient Comments: DISSOLVE 1 AND 1/4 TABLETS UNDER THE TONGUE ONCE A DAY albuterol sulfate 90 mcg/actuation HFA aerosol inhaler inhalation Patient Comments: inhale 1 PUFF BY MOUTH EVERY 4 HOURS escitalopram oxalate 20 mg tablet 20 mg PO DAILY Patient Comments: TAKE 1 TABLET BY MOUTH ONCE A DAY cholecalciferol (vitamin D3) 1,250 mcg (50,000 unit) capsule 1,250 mcg PO WEEKLY Patient Comments: TAKE 1 CAPSULE BY MOUTH ONCE WEEKLY gabapentin 400 mg capsule 400 mg PO TID Patient Comments: TAKE 1 CAPSULE BY MOUTH 2 TIMES A DAY Linzess 72 mcg capsule 72 mcg PO DAILY Qty: 90 3RF Referrals Follow up/Referrals: Cornelia Oneill MD [Primary Care Provider, Medical] - See instructions Amarjit Villalpando DO [Staff Physician, Orthopedics] - See instructions Activity Restrictions/Add. Instructions Additional Instructions/Restrictions: You were seen for finger joing pain and locking sensation. Please follow up with the orthopedist. Clinical Impressions Clinical Impression: Finger pain, right Instructions Patient Instructions: DI for Hand Pain Print Language Print Language: Lithuanian Discharge ED Provider: Aron Huston General Adult HPI General Chief complaint: Extremity Injury, Upper Stated complaint: right hand pain Time Seen by Provider: 01/09/25 15:50 Mode of Arrival: Ambulatory Source of Information: Patient Description of Symptoms (Recalled from ER Triage Doc. by RN): Reports knot on right hand by her thumb for approx 1 week. History of Present Illness HPI narrative: Patient presents that her right thumb and third finger have been catching and locking she reports she has not had any injury. She reports she feels a knot on the base of the thumb. She has taken gabapentin for pain. MD complaint: hand pain Onset (ago): week(s) (1) Location: right and upper extremity Radiation: non-radiation Severity: mild Consistency: intermittent Relieving factors: none Exacerbating factors: none Associated symptoms: negative fever/chills Related Data Home Medications ?Medication ?Instructions ?Recorded ?Confirmed albuterol sulfate 90 mcg/actuation inhalation 09/17/24 12/01/24 aerosol inhaler buprenorphine 8 mg-naloxone 2 mg tab sublingual 12/01/24 sublingual tablet cholecalciferol (vitamin D3) 1,250 1,250 mcg PO WEEKLY 09/17/24 12/01/24 mcg (50,000 unit) capsule escitalopram oxalate 20 mg tablet 20 mg PO DAILY 09/1712/01/24 gabapentin 400 mg capsule 400 mg PO TID 10/29/2412/01 polyethylene glycol 3350 17 17 g PO DAILY 10/29/2412/17 gram/dose oral powder (Miralax) psyllium husk 3.4 gram/5.4 gram 1 tbsp PO DAILY 12/01/24 oral powder (Metamucil) Previous Rx's ?Medication ?Instructions ?Recorded linaclotide 72 mcg capsule 72 mcg PO DAILY #90 caps (Linzess) Allergies Allergy/AdvReac Type Severity Reaction Status Date / Time No Known Allergies Allergy Verified 12/01/24 12:59 [facility] Disclaimer: The information contained in this section may have been updated after the patient was seen, as this information can be updated by other users. Medical History Colon cancer Surgical History History of cholecystectomy History of hysterectomy H/O LEEP History of back surgery History of section Family History Other Cancer Hyperlipidemia Hypertension Social History Smoking Status: Current every day smoker tobacco type: cigarettes packs per day: 1 alcohol intake: never substance use type: other current occupational status: unemployed Travel in the last 8 weeks?: None housing: house Have you lived/traveled outside US in past 30 days?: No Contact w/someone who lives/traveled outside US past 30 days?: No Exposure to someone with infectious disease in past 14 days?: No Do you have a fever (greater than 100.4 F or 38 C)?: No Have you tested positive for COVID-19?: No Exposed to someone with COVID-19 in past 14 days?: No Do you have a sore throat?: No Do you have a cough?: No Do you have any weakness?: No Do you have any diarrhea?: No Are you experiencing any unusual bleeding?: No Do you have any muscle aches/pain?: No Do you have any abdominal pain?: No Are you experiencing loss of taste or smell?: No Other Medical History Have you received the Flu Vaccine for this season: No Have you received the Pneumonia Vaccine: No ROS Obtained: Yes Systems reviewed as appropriate & no additional complaints except as documented Physical Exam General General appearance: alert and in no apparent distress Head Head exam: atraumatic and normocephalic Eye Eye exam: Present normal appearance and EOMI Chest Chest inspection: Present symmetric chest wall rise Respiratory Respiratory exam: Present normal lung sounds bilaterally; Absent wheezes or stridor Cardiovascular Cardiovascular exam: Present regular rate and normal rhythm; Absent systolic murmur Extremities Exam Extremities exam: Present other (right thumb TTP at the thumb base, no palpable abnormalities, FROM/ N/V intact. Third digit FROM, N/V intact, nontender ) Neurological Exam Neurological exam: Present alert and oriented X3 Psychiatric Psychiatric exam: Present normal affect and normal mood Skin Skin exam: Present warm, dry and intact Medical Decision Making Medical Records Screening: Per USPSTF and CDC recommendations, given the prevalence of disease in our region, it is our hospital?s policy to screen for HIV and viral Hepatitis for all patients aged 18 and over and those with ongoing risk factors. Danny Inquiry Pt receiving controlled substance: No Vital Signs: 01/09/25 15:45 01/09/25 16:15 01/09/25 16:45 Temperature 97.8 F Temperature Source Oral Pulse Rate 72 70 Pulse Rate [Radial] 74 Respiratory Rate 18 Blood Pressure 109/68 L 110/73 Blood Pressure [Right Arm] 124/72 Blood Pressure Mean [Right Arm] 89 Blood Pressure Source [Right Arm] Automatic Cuff Blood Pressure Position [Right Arm] Sitting 02 Sat by Pulse Oximetry 97 97 96 Oxygen Delivery Method Room Air Room Air Room Air 01/09/25 17:15 01/09/25 18:00 Temperature 98.2 F Temperature Source Pulse Rate 61 80 Pulse Rate [Radial] Respiratory Rate 20 Blood Pressure 108/66 L 140/78 Blood Pressure [Right Arm] Blood Pressure Mean [Right Arm] Blood Pressure Source [Right Arm] Blood Pressure Position [Right Arm] 02 Sat by Pulse Oximetry 98 Oxygen Delivery Method Room Air Room Air Orders (Tests/Meds): ORDERS Category Date Time Status Hand XR right minimum 3 views [XR hand RT min 3V] Stat Exams 01/09/25 15:57 Completed Medical Decision Narrative: In summary patient is a 49-year-old female who presents the emergency department for evaluation of right hand pain. Patient is hemodynamically stable upon arrival, afebrile. Mild tenderness at the baqse of the thumb . Differential diagnosis includes arthritis, fracture, trigger finger. Initial workup will be conducted with x-ray. Upon repeat evaluation patient resting comfortably. Given this patient is appropriate for discharge home at this time with follow-up with orthopedics.. Critical Care Critical Care Time Critical Care Time: No
== END 2025-01-09 18:01 | disposition home or self-care (01) ==
PROVIDERS: Emergency Provider Student in an Organized Health Care Education/Training Program; PCP Family Medicine
DX: M79.644 Pain in right finger(s) (principal)
CPT/HCPCS: 73130; 99283; 99284

== ENCOUNTER 2025-01-12 14:36 | Outpatient (CLI) | payer OTHER, SELFPAY ==
--- NOTE | 2025-01-12 14:40 | MM_ITS ---
PROCEDURE INFORMATION: Exam: MG Bilateral Diagnostic Breast Tomosynthesis Exam date and time: 01/12/2025 2:57 PM Age: 49 years old Clinical indication: Screening. No family history of breast cancer. TECHNIQUE: Imaging protocol: Bilateral Diagnostic tomosynthesis and 2D mammography including computer-aided detection (CAD) when performed. Unilateral or bilateral exam. COMPARISON: 1. MG MAMMOGRAM ADONIS SCREENING BILATERAL 12/24/2023 7:38 AM 2. MG DIAG MAMMO W CAD LT 11/13/2022 1:36 PM 3. MG SCREEN MAMMO W CAD BILAT 10/02/2022 10:18 AM FINDINGS: MAMMOGRAPHY: Breast mammogram findings: Breast composition: The breasts are heterogeneously dense, which may obscure small masses. Mass: No suspicious mass. Architectural distortion: None. Calcifications: No suspicious calcifications. Asymmetric density: None. Skin thickening: None. Axillary adenopathy: None. Other: Gonzalo cath in the right axilla, limits evaluation and accentuates the importance of clinical breast exam. IMPRESSION: No mammographic evidence of malignancy. Annual screening mammogram recommended unless otherwise clinically indicated. ASSESSMENT: BI-RADS Category 1: Negative.
== END 2025-01-12 23:59 | disposition home or self-care (01) ==
LOC: RAD 14:36
PROVIDERS: PCP Family Medicine; Visit Provider Nurse Practitioner
DX: R92.333 Mammographic heterogeneous density, bilateral breasts (principal)
CPT/HCPCS: 77062; 77066; G0279

== ENCOUNTER 2025-01-29 10:05 | Outpatient (CLI) | payer OTHER, SELFPAY ==
--- OUTSIDE RECORDS SUMMARY | 2025-01-29 10:09 | XMS_ITS | Encounter Summary ---
Author Organization Healthcare Address [address] [place] [address] Care Team Providers Care Railroad Car Painter Name Role Phone Fernanda Barillas BRYANT Primary Care Provider +1- [phone] Encounter Details Date Type Department Care Team (Late Contact Info) Description 01/28/2023 Orders Only External Location [address] [place] [address] Provider, External Social History Tobacco Use Types [...] Upcoming Encounters Date Type Department Care Team ([facility] Contact Info) Description 02/16/2025 10:50 AM EST Appointment [facility] S Radiology [address]st [place] [address] 02/16/2025 2:30 PM EST Office Visit [facility] [address] [place] [address] Viral Skaggs MD [address] [email or web address] [address] [place] [address] documented as of this encounter Procedures Procedure [...] on filedocumented in this encounter Care Teams Railroad Car Painter Relationship Specialty Start Date End Date Fernanda Barillas APRN [address] [place] [address] PCP - General 08/05/20 documented as of this encounter
--- OUTSIDE RECORDS SUMMARY | 2025-01-29 10:09 | XMS_ITS | Encounter Summary ---
Author Organization Healthcare Address [address] [place] [address] Care Team Providers Care Carton And Can Supply Supervisor Name Role Phone Barillas Fernandakarishma Ross APRN Primary Care Provider +1- [phone] Sherron Duckworth SLURRY TANK OPERATOR Unavailable Unavailable Encounter Details Date Type Department Care Team (Late st Contact Info) Description 11/01/2008 Orders Only External Location [address] [place] [address] Provider, External Social History Tobacco Use Types [...] Team (Late st Contact Info) Description 02/16/2025 10:50 AM EST Appointment [facility] S Radiology [address] [place] [address] 02/16/2025 2:30 PM EST Office Visit [facility] [address] [place] [address] Viral Skaggs MD [address] [place] [address] documented as of this encounter [...] on filedocumented in this encounter Care Teams Carton And Can Supply Supervisor Relationship Specialty Start Date End Date Fernanda Barillas APRN [address] [place] [address] PCP - General 08/05/20 Sherron Duckworth, [place] [address] Early Childhood Special Educator Tea Room Manager 06/20/21 06/20/21 documented as of this encounter
--- OUTSIDE RECORDS SUMMARY | 2025-01-29 10:09 | XMS_ITS | Clinical Summary ---
Author Organization [facility] Address [address] [place] [address] Care Team Providers Care Mergers And Acquisitions Manager Name Role Phone None, Physician Primary Care [...] been provided with Provera tablets by the [facility]itentiary medical provider without change in her symptoms, bleeding currently accompanied by pelvic pain and pressure. 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 She has been provided with Provera tablets by the penitentiary medical provider without change in her symptoms, [...] Anatomical Region Laterality Modality Breast [facility] RAD Mammogra phy 12/24/2023 9:26 AM EDT Narrative 12/24/2023 9:31 AM EDT REVIEWING YOUR TEST RESULTS IN [facility] IS NOT A SUBSTITUTE FOR DISCUSSING THOSE RESULTS WITH YOUR HEALTH CARE PROVIDER. PLEASE CONTACT YOUR PROVIDER [facility]IA [facility] TO DISCUSS ANY QUESTIONS OR CONCERNS YOU MAY HAVE REGARDING THESE TEST RESULTS. RADIOLOGY REPORT FACILITY: [facility] UNIT/AGE/GENDER: RANJANA OP AGE:48 Y SEX:F PATIENT NAME/: MARIA C GRIMALDO 1975 UNIT NUMBER: [id number] ACCESSION NUMBER: [id number] Examination: Bilateral Digital Diagnostic Mammogram with Tomosynthesis [...] compared to prior imaging studies performed at [facility] on 10/02/2022 and 11/13/2022. Findings: Bilateral [...] - 12/24/2023 REVIEWING YOUR TEST RESULTS IN [facility] IS NOT A SUBSTITUTE FORDISCUSSING THOSE RESULTS WITH YOUR HEALTH CARE PROVIDER. PLEASE CONTACT YOUR PROVIDER [facility] TO DISCUSS ANY QUESTIONS ORCONCERNS YOU MAY HAVE REGARDING THESE TEST RESULTS. RADIOLOGY REPORT FACILITY: [facility] UNIT/AGE/GENDER: RANJANA OP AGE:48 Y SEX:F PATIENT NAME/: MARIA C GRIMALDO 1975 UNIT NUMBER: [id number] ACCESSION NUMBER: [id number] Examination: Bilateral Digital Diagnostic Mammogram with Tomosynthesis [...] compared to prior imaging studies performed at [facility] on 10/02/2022 and 11/13/2022. Findings: Bilateral [...] Williamson M.D.> 12/24/2023928 [id number] Natacha Felicita EMPLOYMENT OFFICE CLERK [facility] ORDERABLES Final Result from Last 3 Months or Most Recently Relevant to Health Maintenance Insurance * Guarantor: Maria C Grimaldo Account Type Relation to Patient Date of Phone Billing Address Personal/Family Self 1975 [phone] (Home) [address] [place] [address] [facility] * Guarantor: Maria C Grimaldo Account Type Relation to Patient Date of Phone Billing Address [facility] Self 1975 [phone] (Home) [address] [place] [address] Care Teams Mergers And Acquisitions Manager Relationship Specialty Start Date End Date None, Physician PCP - General 07/30/23
--- OUTSIDE RECORDS SUMMARY | 2025-01-29 10:09 | XMS_ITS | Encounter Summary ---
Author Organization Healthcare Address [address] [place] [address] Care Team Providers Care Internal Investigator Name Role Phone Fernanda Barillas BRYANT Primary Care Provider +1- [phone] Encounter Details Date Type Department Care Team (Late Contact Info) Description 01/09/2023 Orders Only External Location [address] [place] [phone] Provider, External Social History Tobacco Use Types [...] Upcoming Encounters Date Type Department Care Team ([facility] Contact Info) Description 02/16/2025 10:50 AM EST Appointment [facility] S Radiology [address] [place] [address] 02/16/2025 2:30 PM EST Office Visit [facility] [address] [place] [phone] Viral Skaggs MD [address] [facility] [address] [place] [address] documented as of this encounter Procedures Procedure [...] on filedocumented in this encounter Care Teams Internal Investigator Relationship Specialty Start Date End Date Fernanda Barillas APRN [address] [place] [address] PCP - General 08/05/20 documented as of this encounter
--- OUTSIDE RECORDS SUMMARY | 2025-01-29 10:09 | XMS_ITS | Encounter Summary ---
Author Organization Healthcare Address [address] [place] [address] Care Team Providers Care Leach Tank Tender Name Role Phone Fernanda Barillas BRYANT Primary Care Provider +1- [phone] Encounter Details Date Type Department Care Team (Late Contact Info) Description 01/09/2023 Orders Only External Location [address] [place] [phone] Provider, External Social History Tobacco Use Types [...] Upcoming Encounters Date Type Department Care Team ([facility] Contact Info) Description 02/16/2025 10:50 AM EST Appointment [facility] S Radiology [address] [place] [address] 02/16/2025 2:30 PM EST Office Visit [facility] [address] [place] [phone] Viral Skaggs MD [address] [facility] [address] [place] [address] documented as of this encounter Procedures Procedure [...] on filedocumented in this encounter Care Teams Leach Tank Tender Relationship Specialty Start Date End Date Fernanda Barillas APRN [address] [place] [address] PCP - General 08/05/20 documented as of this encounter
--- OUTSIDE RECORDS SUMMARY | 2025-01-29 10:09 | XMS_ITS | Encounter Summary ---
Author Organization Healthcare Address [address] [place] [address] Care Team Providers Care Helmet Hat Puncher Name Role Phone Fernanda Barillas BRYANT Primary Care Provider +1- [phone] Encounter Details Date Type Department Care Team (Late Contact Info) Description 11/01/2022 Orders Only External Location [address] [place] [phone] Provider, External Social History Tobacco Use Types [facility] Description 02/16/2025 10:50 AM EST Appointment [facility] Radiology [address] 1st [place] [address] 02/16/2025 2:30 PM EST Office Visit [facility] [address] [place] [phone] Viral Skaggs MD [address] [facility] [address] [place] [address] documented as of this encounter Procedures Procedure [...] on filedocumented in this encounter Care Teams Helmet Hat Puncher Relationship Specialty Start Date End Date Fernanda Barillas APRN [address] [place] [address] PCP - General 08/05/20 documented as of this encounter
--- OUTSIDE RECORDS SUMMARY | 2025-01-29 10:10 | XMS_ITS | Encounter Summary ---
Author Organization Healthcare Address [address] [place] [address] Care Team Providers Care Aeronautical Drafter Name Role Phone Fernanda Barillas BRYANT Primary Care Provider +1- [phone] Encounter Details Date Type Department Care Team (Late Contact Info) Description 10/03/2023 Orders Only External Location [address] [place] [phone] Provider, External Social History Tobacco Use Types [...] Upcoming Encounters Date Type Department Care Team ([facility] Contact Info) Description 02/16/2025 10:50 AM EST Appointment [facility] S Radiology [address] [place] [address] 02/16/2025 2:30 PM EST Office Visit [facility] [address] [place] [address] Viral Skaggs MD [address] [facility] [address] [place] [address] documented as of this encounter Procedures Procedure [...] on filedocumented in this encounter Care Teams Aeronautical Drafter Relationship Specialty Start Date End Date Fernanda Barillas APRN [address] [place] [address] PCP - General 08/05/20 documented as of this encounter
--- OUTSIDE RECORDS SUMMARY | 2025-01-29 10:10 | XMS_ITS | Clinical Summary ---
Author Organization [facility] Address [address] [place] [address] Care Team Providers Care Cognos Name Role Phone Barillas Fernandakarishma Ross APRN Primary Care Provider +1- [phone] Allergies No known active allergies Medications albuterol 108 (90 Base) MCG/ACT inhaler Inhale 1 puff every 4 hours. 07/23/2024 Active buprenorphine-n aloxone (Suboxone) 8-[address] 1 tablet under the tongue daily. 08/06/2024 Active Vitamin D3 1.25 MG (52991 UT) capsule Take 1 capsule by mouth [...] - 11/13/2024 11:59 PM EDT Hospital Encounter [facility] [address] [place] [address] Anal cancer (CMS/HCC); Tobacco use; Pulmonary nodule Discharge Disposition: Home or Self Care 11/13/2024 Travel 11/12/2024 Travel 10/30/2024 Telephone [facility] [address] [place] [address] Viral Skaggs MD from Last 3 Months [...] Description 02/16/2025 10:50 AM EST Appointment [facility] [address] [place] [address] 02/16/2025 2:30 PM EST Office Visit [facility] Multidisciplinary Oncology Clinic [address] [place] [address] Viral Skaggs MD [address] [place] [address] Health Maintenance Due Date Last [...] (2 - Td or Tdap) 05/24/2024 05/24/2014 [id number] Vaccine (3 - season) 2024 02/13/2024, 08/10/2020 [...] Screen Nonreactive Nonreactive 06/20/2021 4:07 PM EDT LAB Blood Venous blood specimen / Unknown Venipuncture / Unknown 06/20/2021 2:04 PM EDT 06/20/2021 2:18 PM EDT Trice Doe MD LAB BLOOD ORDERABLES Final Res ult [facility] [address] [place] [address] * (ABNORMAL) [place] Hepatitis C Antibody (06/20/2021 2:04 PM EDT) Hepatitis C Antibody Positive( A) Negative 06/20/2021 4:53 PM EDT [facility] Comment:This specimen is angel ng sent for confirmation by RT-PCR. Blood Venous blood specimen / Unknown Venipuncture / Unknown 06/20/2021 2:04 PM EDT 06/20/2021 2:18 PM EDT us Trice Doe MD LAB BLOOD ORDERABLES Final Res ult Performing Organization Address City/[facility]/ZIP Co de Phone Number [facility]ALTHCARE [facility] [address] [place] [address] from Last 3 Months or Most Recently Relevant to Health Maintenance Insurance [employer] [facility] MEDICAID Advance Directives * Full Code (Latest Code Status on File) Date Activated Date Inactivated Comments 06/20/2021 4:30 PM 06/21/2021 10:05 PM Question Answer Comments Patient has decision-making capacity? Yes Care Teams Cognos Relationship Specialty Start Date End Date Fernanda Barillas APRN [address] [place] [address] [facility] 08/05/20
--- OUTSIDE RECORDS SUMMARY | 2025-01-29 10:10 | XMS_ITS | Encounter Summary ---
Author Organization [facility] Address [address] [place] [address] Care Team Providers Care Soiled Linen Distributor Name Role Phone Fernanda Barillas APRN Primary Care Provider +1- [phone] Encounter Details Date Type Department Care Team (Late Contact Info) Description 08/12/2024 Lab Requisition [facility] [address] [place] [address] Viral Skaggs MD [address] [address] Polyp of colon Social History [...] Care Team (Late Contact Info) Description 02/16/2025 10:50 AM EST Appointment [facility] Radiology [address] [place] [address] 02/16/2025 2:30 PM EST Office Visit [facility] [address] [place] [address] Viral Skaggs MD [address] [address] documented as of this encounter Procedures Procedure Name Priority Date/Time Associated Diagnosis Comments SURGICAL PATHOLOGY CONSULT Routine 08/12/2024 2:09 PM EDT Polyp of colon documented in this encounter Results * Surgical Pathology Consult (08/12/2024 2:09 PM EDT) Case Report Sugical Pathology Consult Case: [id number] Authorizing Provider: Viral Skaggs MD Collected: 08/12/20249 Ordering Location: [facility] Lab Received: 08/12/2024 1409 Pathologist: Clark Cornejo MD Specimen: Colon, [id number] 08/14/2024 8:12 AM EDT [facility] Final Diagnosis (OUTSIDE CASE: [id number], COLLECTED ON 12/12/2022): TRANSVERSE COLON, POLYP, BIOPSY (A): - BENIGN LYMPHOID AGGREGATE; NEGATIVE FOR DYSPLASIA PERIANAL MASS, BIOPSY (B): - INVASIVE SQUAMOUS CELL CARCINOMA, VARIABLY KERATINIZING 08/14/2024 8:12 AM EDT [facility] at 0812 EDT Clinical Information K63.5 - Polyp of colon [ICD-10-CM] 08/14/2024 8:12 AM EDT [facility] Gross Description A. [id number] Received along with a corresponding pathology report from [facility] are 7 slide(s) labeled outside case: [id number] collected on 12/12/2022. 08/14/2024 8:12 AM EDT [facility] Tissue Colon structure / Unknown 08/12/2024 2:09 PM EDT 08/12/2024 2:09 PM EDT us Viral Skaggs MD LAB PATHOLOGY ORDERABLES Final Result [facility] [address] [place] [address] documented in this encounter Visit Diagnoses Diagnosis Polyp of colon Benign neoplasm of colon documented in this encounter Additional Health Concerns Assessment Noted Time A fall risk assessment has been complete d for the patient 08/11/2024 2:03 PM EDT A Body Mass Index follow-up plan has been documented for the patient 08/21/2024 9:25 AM EDT documented as of this encounter Care Teams Soiled Linen Distributor Relationship Specialty Start Date End Date Fernanda Barillas APRN [address] [place] [address] PCP - General 08/05/20 documented as of this encounter
--- OUTSIDE RECORDS SUMMARY | 2025-01-29 10:10 | XMS_ITS | Encounter Summary ---
Author Organization Healthcare Address [address] [place] [address] Care Team Providers Care Gas Station Operator Name Role Phone Fernanda Barillas BRYANT Primary Care Provider +1- [phone] Encounter Details Date Type Department Care Team (Late Contact Info) Description 09/04/2023 Orders Only External Location [address] [place] [address] Provider, External Social History Tobacco Use Types [...] Upcoming Encounters Date Type Department Care Team ([facility] Contact Info) Description 02/16/2025 10:50 AM EST Appointment [facility] S Radiology [address]st [place] [address] 02/16/2025 2:30 PM EST Office Visit [facility] [address] [place] [address] Viral Skaggs MD [address] [facility] [address] [place] [address] documented as of this encounter Procedures Procedure [...] on filedocumented in this encounter Care Teams Gas Station Operator Relationship Specialty Start Date End Date Fernanda Barillas APRN [address] [place] [address] PCP - General 08/05/20 documented as of this encounter
--- OUTSIDE RECORDS SUMMARY | 2025-01-29 10:10 | XMS_ITS | Encounter Summary ---
Author Organization [facility] Address [address] [place] [address] Care Team Providers Care Telegraphic Typewriter Operator Chief Name Role Phone Fernanda Barillas APRN Primary Care Provider +1- [phone] Encounter Details Date Type Department Care Team (Late st Contact Info) Description 08/06/2024 Lab Requisition [facility] [address] [place] [address] Viral Skaggs MD [address] [phone] Unspecified malignant neoplasm of skin, unspecified Social [...] S Radiology [address]st [place] [address] 02/16/2025 2:30 PM EST Office Visit [facility] [address] [place] [address] Viral Skaggs MD [facility] [address] [address] documented as of this encounter Procedures Procedure Name Priority Date/Time Associated Diagnosis Comments SURGICAL PATHOLOGY CONSULT Routine 08/06/2024 12:31 PM EDT Unspecified malignant neoplasm of skin, unspecified documented in this encounter Results * Surgical Pathology Consult (08/06/2024 12:31 PM EDT) Case Report Sugical Pathology Consult Case: [id number] Authorizing Provider: Viral Skaggs MD Collected: 08/06/2024 1231 Ordering Location: [facility] Lab Received: 08/06/2024 1231 Pathologist: Maritza Reynoso MD Specimen: Skin, [id number] 08/07/2024 9:53 AM EDT [facility] Final Diagnosis RIGHT ANTERIOR PERIANAL SKIN, BIOPSY ([id number]; 03/13/2024): - AN AREA OF HIGH-GRADE SQUAMOUS INTRAEPITHELIAL LESION IDENTIFIED. - NEGATIVE FOR INVASIVE CARCINOMA. PERINEAL BODY SKIN, BIOPSY ([id number]; 03/13/2024): - NEGATIVE FOR HIGH-GRADE SQUAMOUS INTRAEPITHELIAL LESION. LEFT PERINEAL SKIN, BIOPSY ([id number] C; 03/13/2024): - NEGATIVE FOR HIGH-GRADE SQUAMOUS INTRAEPITHELIAL LESION. 08/07/2024 9:53 AM EDT [facility] at 0953 EDT Clinical Information C44.90 - Unspecified malignant neoplasm of skin, unspecified [ICD-10-CM] 08/07/2024 9:53 AM EDT [facility] Gross Description A. [id number] Received along with a corresponding pathology report from [facility] are 15 slide(s) labeled outside case: [id number] collected on 03/13/2024. 08/07/2024 9:53 AM EDT [facility] Note: A resident was involved in the service. I attest I examined the relevant preparations for the specimens and confirmed the diagnosis or interpretation. 08/07/2024 9:53 AM EDT [facility] Tissue Skin structure / Unknown 08/06/2024 12:31 PM EDT 08/06/2024 12:31 PM EDT Viral Skaggs MD LAB PATHOLOGY ORDERABLES Final Result [facility] [address] [place] [address] documented in this encounter Visit Diagnoses Diagnosis Unspecified malignant neoplasm of skin, unspecified documented in this encounter Care Teams Telegraphic Typewriter Operator Chief Relationship Specialty Start Date End Date Fernanda Barillas, LOCAL TELEPHONE OPERATOR [address] [place] [address] PCP - General 08/05/20 documented as of this encounter
--- OUTSIDE RECORDS SUMMARY | 2025-01-29 10:10 | XMS_ITS | Encounter Summary ---
Author Organization [facility] Address [address] [place] [address] Care Team Providers Care Vision Impaired Teacher Name Role Phone Fernanda Barillas APRN Primary Care Provider +1- [phone] Encounter Details Date Type Department Care Team (Late st Contact Info) Description 10/30/2024 Telephone [facility] [address] [place] [address] Viral Skaggs MD [address] [facility] [address] [place] [address] Social History Tobacco Use Types Packs/Day Years [...] optimal time of day to reach caller: [phone] Note: Please do not reply to this message. Follow-up communication and further actions as a result of this message need to be communicated with the patient directly, if the patient is not active onMyChart. If the patient is active on MyChart, they will receive notification of the communication/outcome via Motribe. documented in this encounter Plan of Treatment Upcoming Encounters Date Type Department Care Team (Late st Contact Info) Description 02/16/2025 10:50 AM EST Appointment [facility] Radiology [address] [place] [address] 02/16/2025 2:30 PM EST Office Visit [facility] [address] [place] [address] Viral Skaggs MD [address] [facility] [address] [place] [address] documented as of this encounter Visit Diagnoses Not on filedocumented in this encounter Additional Health Concerns Assessment Noted Time A fall risk assessment has been complete d for the patient 08/11/2024 2:03 PM EDT A Body Mass Index follow-up plan has been documented for the patient 08/21/2024 9:25 AM EDT documented as of this encounter Care Teams Vision Impaired Teacher Relationship Specialty Start Date End Date Fernanda Barillas, ZIPPER JOINER [address] [place] [address] PCP - General 08/05/20 documented as of this encounter
[2025-01-29 10:20] VITALS: BMI 32.5
--- NOTE | 2025-01-29 10:53 | ECG_ITS ---
APPROVED REPORT Exam: Resting ECG HR:70 bpm ECG Measurements Heart Rate 70 AXES AR 156 P 46 QRSd 82 QRS 35 QT 386 T 10 QTc 407 Conclusion SINUS RHYTHM LOW QRS VOLTAGE IN PRECORDIAL LEADS [QRS DEFLECTION < 1.0 mV IN CHEST LEADS] BORDERLINE ECG UNCONFIRMED REPORT Electronically signed by : Luis Curtis MD 01/29/2025 17:21:25
[2025-01-29 11:06] LABS: Hematocrit 38.1 % (37.0-47.0); Hemoglobin 13.4 g/dL (12.2-16.2); Immature Granulocytes % 0.3 %; Mean Corpuscular HGB Conc 35.2 g/dL (31.8-35.4); Mean Corpuscular Hemoglobin 30.6 pg (27.0-31.2); Mean Corpuscular Volume 87.0 fl (81-99); Nucleated Red Blood Cells % 0 %; Platelet Count 272 K/mm3 (142-424); Red Blood Count 4.38 M/mm3 (4.20-5.40); Red Cell Distribution Width-SD 42.2 fL; White Blood Count 6.5 K/mm3 (4.8-10.8)
[2025-01-29 11:20] LABS: Anion Gap 14.3 mEq/L (5-15); Blood Urea Nitrogen 10 mg/dl (7-17); Calcium 9.6 mg/dl (8.4-10.2); Carbon Dioxide 24 mmol/L (22.0-30.0); Chloride 105 mmol/L (98-107); Creatinine Clearance Estimated 111 mL/min (50-200); Creatinine,Serum 0.80 mg/dl (0.52-1.04); Estimated Glomerular Filt Rate 77 ml/min (>60); GFR (African American) 93 ML/MIN (>60); Glucose 94 mg/dl (74-100); Potassium 4.3 mmoL/L (3.5-5.1); Sodium 139 mmol/L (136-145)
== END 2025-01-29 23:59 | disposition home or self-care (01) ==
LOC: PREOP 10:05
PROVIDERS: PCP Family Medicine; Visit Provider Orthopaedic Surgery
DX: Z01.810 Encounter for preprocedural cardiovascular examination (principal); Z01.812 Encounter for preprocedural laboratory examination; R94.31 Abnormal electrocardiogram [ECG] [EKG]
CPT/HCPCS: 36415; 80048; 85025; 93005

== ENCOUNTER 2025-02-02 09:40 | Day surgery (SDC) | payer OTHER, SELFPAY ==
[2025-01-29 07:59] VITALS: BMI 32.5
[2025-02-02] VITALS (9 sets, daily range): BP systolic 99–128; BP diastolic 56–89; PULSE 53–69; RESP 12–20; TEMP 36.2–36.6; O2SAT 96–100
[2025-02-02] MEDS: LACTATED RINGERS 1000ML 1,000 ML 100 ML IV (11:30)
--- NOTE | 2025-02-02 11:37 | P.PNANES_ITS ---
[facility] Disclaimer: The information contained in this section may have been updated after the patient was seen, as this information can be updated by other users. Medical History Constipation COPD (chronic obstructive pulmonary disease) Neuropathy Anxiety Colon cancer Surgical History History of cholecystectomy History of hysterectomy H/O LEEP History of back surgery History of section Family History Other Cancer Hyperlipidemia Hypertension Social History Smoking Status: Current every day smoker tobacco type: cigarettes packs per day: 1 alcohol intake: never substance use type: other current occupational status: unemployed Travel in the last 8 weeks?: None housing: house Have you lived/traveled outside US in past 30 days?: No Contact w/someone who lives/traveled outside US past 30 days?: No Exposure to someone with infectious disease in past 14 days?: No Do you have a fever (greater than 100.4 F or 38 C)?: No Have you tested positive for COVID-19?: No Exposed to someone with COVID-19 in past 14 days?: No Do you have a sore throat?: No Do you have a cough?: No Do you have any weakness?: No Do you have any diarrhea?: No Are you experiencing any unusual bleeding?: No Do you have any muscle aches/pain?: No Do you have any abdominal pain?: No Are you experiencing loss of taste or smell?: No [facility] Anesthesia Checklist Patient Identification Patient Identification: Arm Band and Verbal (Name & ) Structural Data Admitted From: Home Planned Operative Procedure/s: Right trigger thumb release Consent for Planned Operative Procedure(s) Verified: Yes Verified Documents: Surgical Consent NPO Status Verified Time NPO: 00:00 Chart Verification Results Verified: CBC, BMP and ECG Additional verifications Patient : No Anesthesia Reactions: No Hx Blood Transfusions: Yes Blood Transfusion Reaction: No Airway Assessment Mallampati Score:: Class II C-Spine Mobility Assessed: Yes TMJ Mobility Assessed: Yes Dentition: Edentulous Neurological Assessment Level of Consciousness: Awake, Alert and Appropriate Hx Seizures: No Numbness or tingling in extremities: No Anesthesia Plan Anesthesia Risk discussed: Yes ASA Class: II Anesthesia Type: General
[2025-02-02] MEDS: LIDOCAINE 1% W/EPI 1:100,000 20ML VIAL 20 ML (12:00)
--- NOTE | 2025-02-02 12:26 | P.PNANES_ITS ---
[facility] Anesthesia Record Part I Anesthesia Record I Intake, IV Amount: 400 Hydration: Adequate Estimated blood loss (mL): 0 Urine output (mL): 0 Blood Products used (#): none Blood Pressure: 124/68 SaO2: 96 Pulse Rate: 59 Airway Patency: Patent Respiratory Rate: 14 Temperature: 97.2 F Patient is:: Oral/Nasal airway, Stable and Somnolent Stable to PACU at:: 12:20
--- NOTE | 2025-02-02 12:27 | EXP.OP.NOTE ---
Date of procedure: 02/02/25 Pre-op Diagnosis:: Right trigger thumb Post-op Diagnosis:: Same Procedure performed:: Right thumb A1 tyrone release Surgeon:: Amarjit Villalpando DO Rattlesnake Farmer(s):: Jay [employer] BUSINESS ANALYSIS ANALYST:: Magnus Cerna Anesthesia: MAC and local Estimated blood loss (mL): 0 Operative findings:: See dictation Operative note:: Patient identified preoperatively. Right thumb marked with yes my initials transferred operative suite placed upon operating bed. Given anesthesia the right upper extremity was then prepped and draped normal sterile fashion. Once prepped and draped final operative timeout performed to identify proper patient procedure and extremity. Everyone involved in the case agreed. There is no counter indications beginning. Did receive preoperative antibiotics. Marking pen was used to jorje planned incision over the A1 tyrone of the volar aspect of the thumb. Esmarch was used to exsanguinate extremity pneumatic tourniquet was inflated to 250 mmHg. Skin knife is used to incise the skin retractors were placed with rag nails to expose the A1 tyrone. Small roslyn was made in the A1 tyrone with the Kerkhoven blade and then the A1 tyrone release was completed with the scissors. Tendons were brought outside the wound to confirm no adhesions or further triggering of the thumb. Once complete irrigation of the wound performed skin closed with nylon stitch sterile hand dressing placed patient waken anesthesia taken recovery stable condition. Condition: stable Disposition: PACU Complications:: None apparent
[2025-02-03 07:49] VITALS: BP 124/65; PULSE 59; RESP 17; TEMP 36.6; O2SAT 97
--- NOTE | 2025-02-03 07:49 | P.PNANES_ITS ---
[facility] Anesthesia Record Part II Anesthesia Record Part II Discharge Time: 12:50 Destination: Surgical Day Care (OP Surgery) PACU nurse assessment reviewed?: Yes Patient Condition:: Good Anesthesia Complications:: None Swallowing reflex intact?: Yes Airway Patency: Patent Cyanosis?: No Blood Pressure: 124/65 SaO2: 97 Respiratory Rate: 17 Pulse Rate: 59 Temperature: 98 F Mental Status: Alert & Oriented Pain level:: 0 Nausea and/or vomitting:: None Intake, IV Amount: 0 Hydration: Adequate
== END 2025-02-02 13:21 | disposition home or self-care (01) ==
PROVIDERS: PCP Family Medicine; Visit Provider Orthopaedic Surgery
PROC: (CPT 26055; principal; 2025-02-02 11:15)
DX: M65.311 Trigger thumb, right thumb (principal); J44.9 Chronic obstructive pulmonary disease, unspecified; F41.9 Anxiety disorder, unspecified; Z90.49 Acquired absence of other specified parts of digestive tract; Z90.710 Acquired absence of both cervix and uterus; Z56.0 Unemployment, unspecified; F17.210 Nicotine dependence, cigarettes, uncomplicated; Z79.899 Other long term (current) drug therapy
CPT/HCPCS: 26055; J0690; J1100; J2003; J2004; J2250; J2405; J2704; J3010; J7120